=== PATIENT | female | born 1990 ===

== ENCOUNTER 2023-07-17 10:35 | Inpatient (IN) ==
[2023-07-17] MEDS ORDERED: LIDOCAINE 1% LOCAL 20 ML VIAL INFIL PRN (11:22)
--- NOTE | 2023-07-17 11:42 | History & Physical Report ---
Date of Service July 17, 2023 Assessment & Plan Admission and Anticipated Discharge Date Admission Date: July 17, 2023 History of Present Illness Chief Complaint: induction of labor Primary Care Provider: NO PCP 32 F P2002 at 40.2 weeks presents to L&D for IOL for post-dates. Her has been uneventful. GBS is negative. Patient History Social History Smoking Status: Never smoker Second Hand Exposure: No; Do You Dip or Chew Tobacco: No; Tobacco Cessation Education Requested by Patient: No Hx Alcohol Use: No Hx Substance Use: No Preferred Language: Luxembourgish Communication Ability: Effective Production Analyst Required: No Beliefs That Will Affect Care: None marital status: Current Living Situation: Spouse Current Living Situation Comment: , Son, Daughter Other Information That Helps Us Care for You: No Feels Safe at Home: Yes Safety Concerns: Feels Safe At This Time Assistive Devices: None OB History x2 STONEMASON History neg Review of Systems All systems reviewed & are unremarkable except as noted in HPI & below Physical Exam Constitutional: WD/WN, vitals as above Eyes: PERRL, conjunctivae normal, anicteric sclerae Respiratory: normal respiratory effort, lungs clear to auscultation Cardiovascular: RRR, no murmur, no edema Gastrointestinal (Abdomen): Inspection/Auscultation: abdomen normal to inspection Musculoskeletal: Extremities: extremities normal to inspection Skin: no rashes, warm and dry Neurologic: patellar DTR's 2+ bilat, sensation intact Psychiatric: A+Ox3, euthymic affect Genitourinary: no vaginal lesions, no adnexal mass OB Exam Abdomen: + fundal height, + vertex and + estimated weight (7-7.5 lbs.) Manual OB Exam: + cervical dilation 1 cm, + cervical effacement 50% and + station high OB Exam Monitor Tracing: + external FHT monitor used, + external uterine monitor used, + category I and + normal FHT variability Results & Data Vital Signs (Past 12 Hours) Vital Signs Temp Pulse Resp BP 07/17/23 11:20 90 129/85 07/17/23 11:12 36.7 C 16 129/85 Monitoring External Monitor Cat 1
[2023-07-17 11:50] LABS: Hematocrit (blood only) 34.1 % (37.0-47.0); Hemoglobin 11.6 g/dl (12.0-16.0); Mean Corpuscular Hemoglobin 30.5 pg (25.0-34.0); Mean Corpuscular Volume 89.7 fL (80.0-100.0); Mean Platelet Volume 10.4 fL (9.4-12.4); Platelet Count 201 K/uL (130-400); RDW Coefficient of Variation 14.6 % (11.5-14.5); RDW Standard Deviation 47.9 fL (36.4-46.3); White Blood Count 6.85 K/ul (4.8-10.8)
[2023-07-17] MEDS: miSOPROStoL 50 MCG TAB PO SCH (12:39)
[2023-07-17] MEDS: LACTATED RINGER'S 1,000 ML IV PRN (16:56)
[2023-07-17] MEDS ORDERED: SODIUM CHLORIDE 0.9% PF INJ 10 ML VIAL ONE (17:08)
[2023-07-17] MEDS ORDERED: BUPIVACAINE 0.25% PF 30 ML VIAL ONE (17:08)
[2023-07-17] MEDS ORDERED: fentaNYL citrate PF 100 MCG/2 ML VIAL ONE (17:08)
[2023-07-17] MEDS ORDERED: ePHEDrine sulfate 50 MG/ML AMP ONE (17:08)
--- NOTE | 2023-07-17 17:10 | Labor Progress Brief Note ---
Date of Service July 17, 2023 Assessment & Plan Admission and Anticipated Discharge Date Admission Date: July 17, 2023 Physical Exam Genitourinary: Manual OB Exam: + cervical dilation 3 cm, + cervical effacement 60%, + station -2 and + amniotic fluid (AROM with Amni-hook clear fluid) clear OB Exam Monitor Tracing: + external FHT monitor used, + external uterine monitor used, + category I and + normal FHT variability Results & Data Vital Signs (Past 12 Hours) Vital Signs Temp Pulse Resp BP 07/17/23 16:45 37.1 C 07/17/23 15:01 16 07/17/23 15:01 36.8 C 16 07/17/23 14:43 76 128/80 07/17/23 12:39 86 133/75 07/17/23 11:20 90 129/85 07/17/23 11:12 36.7 C 16 129/85
--- NOTE | 2023-07-17 17:34 | Anesthesiology Consultation ---
Date of Service July 17, 2023 Assessment & Plan Chart Review Chart Review: Acceptable Risk for Labor Epidural Consults Requested none History Height/Weight Height: 5 ft 2 in Weight: 75.75 kg Medications Home Medications Medication Instructions Recorded Confirmed Last Taken docusate sodium 50 mg capsule 50 mg PO BID 07/17/23 07/17/23 Unknown ferrous sulfate 325 mg (65 mg 325 mg PO BID 07/17/23 07/17/23 Unknown iron) tablet (Iron (ferrous sulfate)) Active Medications Generic Name Dose Route Start Last Admin Trade Name Dusty PRN Reason Stop Dose Admin Lactated Ringer's 1,000 mls @ 125 mls/hr 07/17/23 11:22 07/17/23 16:56 Lr IV 07/19/23 11:21 999 mls/hr .Q8H PRN Administration L&D Protocol Protocol Misoprostol 50 mcg 07/17/23 11:45 07/17/23 12:39 Misoprostol 50 Mcg Tab PO 08/16/23 11:44 50 mcg BID JOE Administration Past Medical History Medical History (Updated 07/17/23 @ 12:20 by Renetta Fitzgerald RN) Acute hemorrhoid Anemia Social History Smoking Status: Never smoker Do You Dip or Chew Tobacco: No Hx Alcohol Use: No Hx Substance Use: No Physical Exam Vital Signs Last Vital Signs Temp 37.1 C 07/17/23 16:45 Pulse 76 07/17/23 14:43 Resp 16 07/17/23 15:01 BP 128/80 07/17/23 14:43 Testing Laboratory Results 07/17/23 11:34 Blood Type A Positive 07/17/23 11:34 Blood Type Cancelled 07/17/23 11:34 Antibody Screen Cancelled 07/17/23 11:34 Antibody Screen NEGATIVE 07/17/23 11:34
[2023-07-17] MEDS ORDERED: SODIUM CHLORIDE 0.9% PF INJ 10 ML VIAL EPI STA (17:35)
[2023-07-17] MEDS ORDERED: LIDOCAINE 2% MPF LOCAL 5 ML VIAL EPI PRN (17:35)
[2023-07-17] MEDS ORDERED: diphenhydrAMINE 50 MG/ML VIAL IV PRN (17:35)
[2023-07-17] MEDS ORDERED: SODIUM CHLORIDE 0.9% PF INJ 10 ML VIAL EPI PRN (17:35)
[2023-07-17] MEDS ORDERED: NALOXONE HCL 0.4 MG/1 ML VIAL/CARP IV PRN (17:35)
[2023-07-17] MEDS ORDERED: ROPIVACAINE 0.5% PF 5 MG/ML 20 ML VIAL EPI PRN (17:35)
[2023-07-17] MEDS ORDERED: fentaNYL citrate PF 100 MCG/2 ML VIAL EPI PRN (17:35)
[2023-07-17] MEDS ORDERED: LIDOCAINE 2%/EPINEPHRINE 1:200,000 20 ML PF EPI STA (17:35)
[2023-07-17] MEDS ORDERED: fentaNYL citrate PF 100 MCG/2 ML VIAL EPI STA (17:35)
[2023-07-17] MEDS ORDERED: BUPIVACAINE 0.25% PF 30 ML VIAL EPI STA (17:35)
[2023-07-17] MEDS ORDERED: BUPIVACAINE 0.25% PF 30 ML VIAL EPI PRN (17:35)
[2023-07-17] MEDS ORDERED: ePHEDrine sulfate 50 MG/ML AMP IV PRN (17:35)
[2023-07-17] MEDS ORDERED: NALBUPHINE HCL 5 MG in SYRINGE 0 ML IV PRN (17:35)
[2023-07-17] MEDS ORDERED: NALOXONE HCL 1 MG in SODIUM CHLORIDE 0.9% 1,000 ML IV PRN (17:35)
[2023-07-17] MEDS ORDERED: fentANYL 2 MCG/ML BUPIVacaine 0.125%-NSS 100ML BAG EPI PRN (17:35)
[2023-07-17] MEDS: LIDOCAINE 2%/EPINEPHRINE 1:200,000 20 ML PF ONE (17:55)
[2023-07-17] MEDS: fentANYL 2 MCG/ML BUPIVacaine 0.125%-NSS 100ML BAG ONE (17:55)
[2023-07-17] MEDS ORDERED: Patient's ALLERGY Info needs ENTERED SCH (18:00)
[2023-07-17] MEDS ORDERED: OXYTOCIN 30 UNITS/NSS 30 UNITS/500 ML BAG IV PRN (18:04)
[2023-07-17] MEDS: OXYTOCIN 30 UNITS/NSS 30 UNITS/500 ML BAG IV PRN ×2 (20:54→21:43)
--- NOTE | 2023-07-17 21:11 | Delivery Summary ---
Vaginal Delivery Summary Date of Service July 17, 2023 Vaginal Delivery Summary live male NIGHAT over intact perineum with nuchal cord x1 reduced at delivery. Cord blood obtained followed by spontaneous delivery of intact placenta. First degree tear repaired with 3/0 Vicryl suture. EBL 100 ml. Final sponge, needle and instrument count are correct. Mom and baby stable.
[2023-07-17] MEDS ORDERED: DIPHTHER/TETAN/PERTUS Vaccine (Tdap, Adol/Adult) 0.5mL IM ONE (21:18)
[2023-07-17] MEDS ORDERED: HYDROCORTISONE ACETATE 25 MG SUPP PR PRN (21:18)
[2023-07-17] MEDS: BENZOCAINE 20% SPRY 85 APPLN/85 GM CAN EXT PRN (22:25)
[2023-07-17] MEDS: IBUPROFEN 600 MG TAB PO PRN (22:26)
--- NOTE | 2023-07-17 23:19 | Anesthesia Procedure Note ---
Date of Service July 17, 2023 Anesthesia Post Epidural Note Vital Signs Vital Signs: Temp Pulse Resp BP Pulse Ox O2 Del Method 36.7 C 92 H 18 121/80 99 Room Air 07/17/23 19:05 07/17/23 23:05 07/17/23 22:35 07/17/23 23:05 07/17/23 20:56 07/17/23 19:10 Pain Intensity Generalized: Pain Intensity: 4 Notes Mental Status: alert / awake / arousable Nausea / Vomiting: adequately controlled Pain: adequately controlled Airway Patency, RR, SpO2: stable & adequate BP & HR: stable & adequate Hydration State: stable & adequate Neuraxial Anesthesia: was administered and sensory block is resolving Anesthetic Complications: no major complications apparent and Pt Satisfied with anesthetic care Epidural: Removed without complications and With tip intact
[2023-07-18] MEDS: ACETAMINOPHEN 325 MG TAB PO PRN (04:07)
[2023-07-18 07:31] LABS: Hematocrit (blood only) 33.9 % (37.0-47.0); Hemoglobin 11.3 g/dl (12.0-16.0); Mean Corpuscular Hemoglobin 30.5 pg (25.0-34.0); Mean Corpuscular Hgb Conc 33.3 g/dL (32.0-36.0); Mean Corpuscular Volume 91.6 fL (80.0-100.0); Mean Platelet Volume 10.6 fL (9.4-12.4); Platelet Count 176 K/uL (130-400); RDW Coefficient of Variation 14.6 % (11.5-14.5); RDW Standard Deviation 49.5 fL (36.4-46.3); White Blood Count 11.05 K/ul (4.8-10.8)
[2023-07-18] MEDS: PRENATAL VITAMIN 1 TAB PO SCH (07:54)
[2023-07-18] MEDS: DOCUSATE SODIUM 100 MG CAP PO SCH (07:54)
[2023-07-18] MEDS: FERROUS SULFATE 325 MG TAB PO SCH (07:58)
[2023-07-18] MEDS ORDERED: FERROUS SULFATE 325 MG TAB PO SCH (08:00)
[2023-07-18] MEDS ORDERED: NON-FORMULARY MEDICATION (Docusate Sodium 50 mg Capsule) PO SCH (09:00)
[2023-07-18] MEDS: FERROUS SULFATE 325 MG TAB PO ONE (10:29)
--- OUTSIDE RECORDS SUMMARY | 2023-07-18 11:24 | External Medical Summary | Summary of Care ---
Author Name Unknown Organization [facility] Address [address] [place] [address] Phone [phone] Care Team Providers Care Rim Roller Setter Name Role Phone Deborah Peña DO Primary Care Provider [phone] Reason for Visit * Reason Comments Return Visit Encounter Details Date Type Department Care Team ([facility] Contact Info) Description 06/17/2023 3:00 PM EST Office Visit Gynecology/Obstetric s [facility] [address] [facility] [place] [address] Gissel Schwab CR[facility] [address] [facility] [address] Supervision of other normal , antepartum*; History of gestational hypertension; Abnormal findings on screening Allergies No known active allergiesdocumented as of this encounter (statuses as of 06/17/2023) Medications Medication Sig Dispensed Refills Start Date End Date Status Formula 28-0.8-235 MG Oral Capsule Take by mouth. 0 Active Polyethylene Glycol 3350 17 GM Oral Packet Take 1 Packet by mouth in the morning. 0 Active Breast Pump Dispense double electric breast pump. Dx:Z39.1 1 Each 0 04/28/2023 Active Iron 28 MG Oral Tablet Take 1 Tablet by mouth in the morning. 0 06/17/2023 Discontinued( Medication List Clean Up) documented as of this encounter (statuses as of 06/17/2023) Active Problems Problem Noted Date Diagnosed Date Iron deficiency anemia 05/05/2023 Anemia in 04/30/2023 Abnormal findings on screening 023 Overview: BPD, HC, 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 [facility] referral placed. Last Assessment & Plan: I reviewed the ultrasound with her. The overall estimated weight is consistent with the 27th percentile for the gestational age and the anatomy that was visualized appears unremarkable. The head circumference is consistent with the 13th percentile for the gestational age and the biparietal diameter is consistent with the 33rd percentile for the gestational age. The intracranial anatomy that was visualized appears normal. I also reviewed with her my interpretation of the ultrasound from March 02. I told her that the head circumference being at the 13th percentile for the gestational age is appropriate for this gestational age. Therefore, there is no clinical indication for return. Supervision of other normal , antepartu m 01/28/2023 History of gestational hypertension 01/28/2023 Family history of congenital heart defect 2013 Overview: Pt's sister born with "hole in heart," No surgical intervention required; Will get more exact diagnosis for upcoming visits Estimated Date of Delivery Comme nts Yes 07/15/2023 Based on Ultraso und documented as of this encounter (statuses as of 06/17/2023) Resolved Problems Problem Noted Date Diagnosed Date Resolved Date Gestational hypertension 05/08/2018 Overview: IOL tonight at 8 pm , normal first 08/01/201302/16 documented as of this encounter (statuses as of 06/17/2023) Immunizations Name Administration Dates Next Due COVID-19 mRNA, LNP-s, No Pre serve, 2-Dose Series (Ushi) 05/01/2021,09/05/2020,08/15/2020 Seasonal Influenza, PF, 6 M & above, IM , (FluLaval or Fluzone) 04/28/2023 TDAP (age 10 and older)(Boostrix) 04/28/2023 documented as of this encounter Social History Tobacco Use Types Packs/Day Years Used Date Smoking Tobacco: Never Smokeless Tobacco: Never Alcohol Use Standard Drinks/Week Comments No 0 (1 standard drink = 0.6 oz pur e alcohol) Hunger Vital Sign Answer Date Recorded Within the past 12 months, y ou worried that your food would run out before you got the money to buy more. Never true 04/28/20 23 Within the past 12 months, t he food you bought just didn't last and you didn't have money to get more. Never true 04/28/2023 [place] Depression Scale Answer Date Recorded [place] Depression Scale Total 3 04/28/2023 The thought of harming myself has occurred to me . Never 04/28/2023 Estimated Date of Delivery Comme nts Yes 07/15/2023 Based on Ultraso und Sex and Gender Information Value Date Recorded Sex Assigned at Female 04/28/2023 8:21 AM EST Gender Identity Female 04/28/2023 8:21 AM EST Sexual Orientation Straight 04/28/2023 8: 21 AM EST Job Start Date Occupation Industry Not on file Not on file Not on file documented as of this encounter Last Filed Vital Signs Vital Sign Reading Time Taken Comments Blood Pressure 118/70 06/17/2023 3:32 PM EST Pulse - - Temperature - - Respiratory Rate - - Oxygen Saturation - - Inhaled Oxygen Concentration - - Weight 64 kg (141 lb) 06/17/2023 3:32 PM EST Height 157.5 cm (5' 2") 06/17/2023 3:32 PM EST Body Mass Index 25.79 06/17/2023 3:32 PM EST documented in this encounter Progress Notes * Gissel Schwab CRNP - 06/17/2023 3:57 PM EST 36w0d Complaints: none Feeling well overall. Good FM. No contractions, bleeding, or LOF. GBS done. KELLY Hogan documented in this encounter Nursing Notes * Krystal Mayberry LPN - 06/17/2023 3:30 PM EST 36w0d Needs gbs documented in this encounter Plan of Treatment Upcoming Encounters Date Type Department Care Team (Late st Contact Info) Description 06/19/2023 3:00 PM EST Hem/Onc Treatment Hematology/Oncology Treatment, [place] [address] [place], [place] [address] Mikala, Chair 8 Hem Onc Sc[facility] [address] [facility] [address] 06/23/2023 9:45 AM EST Pharmacy Pharmacy, [place] [address] [place] [facility] [address] Clinic, Anemia [address] [place] [address] 06/26/2023 9:15 AM EST Office Visit Gynecology/Obstetrics [facility] [address] [place] [address] Mackenzie Domingo PA-C [address] [place] [address] 07/03/2023 7:45 AM EST Office Visit Gynecology/Obstetrics [facility] [address] [place] [address] Mackenzie Domingo PA-C [address] [place] [address] 07/10/2023 8:30 AM EST Office Visit Gynecology/Obstetrics [facility] [address] [place] [place] [address] Gissel Schwab CRNP [address] [place] [address] 07/17/2023 10:30 AM EST Office Visit Gynecology/Obstetrics [facility] [address] [place] [address] Gissel Schwab CRNP [address] [place] [address] Pending Results Name Type Priority Associated Diagnoses Date /Time GROUP B STREP CULTURE/PCR Lab Routine Supervision of other normal , antepartum 06/17/2023 3:37 PM EST Scheduled Orders Name Type Priority Associated Diagnoses Orde r Schedule GROUP B STREP CULTURE/PCR Lab Routine Supervision of other normal , antepartum Expected: 06/17/2023 (Approximate), Expires: 06/17/2024 Health Maintenance Due Date Last Done Comments Hepatitis B (1 of 3 - 3-dose series) 1989 Depression Screening 2001 HPV/Co-Test 10/26/2019 COVID-19 Vaccine (4 - 2022-2 4 season) 2023 05/01/2021, 09/05/2020, 08/15/2020 Cervical Cancer Screening 03/08/2024 Pap Smear 03/08/2024 03/08/2021, 08/01/2013 DTaP,Tdap,and Td Vaccines (2 - Td or Tdap) 04/28/2033 04/28/2023 Influenza Vaccine (FLU shot) Completed 04/2023, 02/15/2018 GARDASIL-HPV IMMUNIZATION SERIES Aged Out No longer eligible b ased on patient's age to complete this topic MENINGOCOCCAL (MENACTRA/MENVEO) Aged Out No longer eligible b ased on patient's age to complete this topic Pneumococcal Vaccine: Pediatrics (0 to 5 Years) and At-Risk Patients (6 to 64 Years) Aged Out No longer eligible b ased on patient's age to complete this topic documented as of this encounter Medical Devices Not on filedocumented as of this encounter Visit Diagnoses Diagnosis Supervision of other normal , antepartum- Primary History of gestational hypertension Abnormal findings on screening documented in this encounter Care Teams Rim Roller Setter Relationship Specialty Start Date End Date Deborah Peña DO [address] [place] [address] PCP - General Family Medicine 06/12/22 documented as of this encounter
--- OUTSIDE RECORDS SUMMARY | 2023-07-18 11:24 | External Medical Summary ---
Author Name Unknown Address Unknown Organization [id number]:[facility] [place] [address] [facility] [address] Laboratory Report Ordering Provider Test Date Status LYNNE FOY 06/17/2023 15:37:27 Final Observation Date Value Abnormality Reference (Units ) Status Streptococcus agalactiae DNA [Presence] in Specimen by WENDI with probe detection 06/17/2023 15:37:27 Negative Negative Final No Group B Streptococcus det ected by culture-enhanced PCR (amplified probe).
The collection of vaginal/rectal swab specimen combinations (FDA approved specimen type) is optimal for the detection of Group B Streptococcus. Single source collection (vaginal only or rectal only) or alternate specimen sources may lead to false negative results. Performing Location [facility] [place] - [address] [place] [address]
--- OUTSIDE RECORDS SUMMARY | 2023-07-18 11:24 | External Medical Summary | Summary of Care ---
Author Name Unknown Organization [facility] Address [address] [place] [address] Phone [phone] Care Team Providers Care Fine Arts Instructor Name Role Phone Deborah Peña DO Primary Care Provider [phone] Reason for Visit * Reason Comments Return Visit Encounter Details Date Type Department Care Team ([facility] st Contact Info) Description 07/03/2023 4:30 PM EST Office Visit Gynecology/Obstetric s [facility] [address] [place] [address] Mackenzie Domingo PA-C [address] [place] [address] Supervision of other normal , antepartum*; History of gestational hypertension; Abnormal findings on screening Allergies No known active allergiesdocumented as of this encounter (statuses as of 07/03/2023) Medications Medication Sig Dispensed Refills Start Date End Date Status Formula 28-0.8-235 MG Oral Capsule Take by mouth. 0 Active Polyethylene Glycol 3350 17 GM Oral Packet Take 1 Packet by mouth in the morning. 0 Active Breast Pump Dispense double electric breast pump. Dx:Z39.1 1 Each 0 04/28/2023 Active documented as of this encounter (statuses as of 07/03/2023) Active Problems Problem Noted Date Diagnosed Date Iron deficiency anemia 05/05/2023 Anemia in 04/30/2023 Abnormal findings on screening 023 Overview: BPD, HC, 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 MFM referral placed. Last Assessment & Plan: I [...] as of this encounter (statuses as of 07/03/2023) Resolved Problems Problem Noted Date Diagnosed Date Resolved Date Gestational hypertension 05/08/2018 Overview: IOL tonight at 8 pm , normal first 08/01/201302/16 documented as of this encounter (statuses as of 07/03/2023) Immunizations Name Administration Dates Next Due COVID-19 mRNA, LNP-s, No Pre serve, 2-Dose Series (Beats [employer]) 05/01/2021,09/05/2020,08/15/2020 Seasonal Influenza, PF, 6 M & [...] money to get more. Never true 04/28/2023 [place] Depression Scale Answer Date Recorded [place] Depression Scale Total 3 04/28/2023 The thought [...] Sign Reading Time Taken Comments Blood Pressure 112/72 07/03/2023 4:19 PM EST Pulse - - Temperature - - Respiratory Rate - - Oxygen Saturation - - Inhaled Oxygen Concentration - - Weight 64.5 kg (142 lb 3.2 oz) 07/03/2023 4:19 P M EST Height 157.5 cm (5' 2") 07/03/2023 4:19 PM EST Body Mass Index 26.01 07/03/2023 4:19 PM EST documented in this encounter Progress Notes * Mackenzie Domingo PA-C - 07/03/2023 4:33 PM EST 38w2d Denies bleeding, LOF, regular contractions. Pos fm. Has been struggling with hemorrhoids throughout . Has tried tucks pads, not constipated. Reviewed OTC preparation H. Has not tried, but willing to try given discomfort. Declines cervical check. FHT 115 bpm with doppler -- NST done. Pt admits only ate apple around lunch time. ASSESSMENT assessment with Non-stress Test completed on 07/03/2023 at 38.2 weeks gestation for indicationof low FHT by doppler heart baseline: 115 bpm Variability: Moderate Decelerations: absent Accelerations: present Contractions: Present q5-6 minutes, not felt by patient NST start time: 16:28 NST stop time: 16:55 NST strip reviewed, interpreted, and approved by OB provider, Mackenzie Domingo PA-C Strip was also reviewed with Dr. Hilliard, no concerns. NST strip stored in clinic storage file RTC in 1 week Labor precautions Mackenzie Domingo PA-C documented in this encounter Nursing Notes * Elicia Webb RN - 07/03/2023 4:20 PM EST Patient here for CHEO 38w2d + FM documented in this encounter Plan of Treatment Upcoming Encounters Date Type Department Care Team (Late st Contact Info) Description 07/10/2023 8:30 AM EST Office Visit Gynecology/Obstetrics [facility] [address] [place] [address] Gissel Schwab CRNP [address] [place] [address] 07/17/2023 10:30 AM EST Office Visit Gynecology/Obstetrics [facility] [address] [place] [address] Gissel Schwab CRNP [address] [place] [address] Health Maintenance Due Date Last Done Comments Depression Screening 2001 Hepatitis B (1 of 3 - 19+ 3-dose series) 2008 HPV/Co-Test 10/26/2019 COVID-19 Vaccine ( - 2022-2 4 season) 2023 05/01/2021, 09/05/2020, [...] screening documented in this encounter Care Teams Fine Arts Instructor Relationship Specialty Start Date End Date Deborah Peña DO [address] [place] [address] PCP - General Family Medicine 06/12/22 documented as of this encounter
--- OUTSIDE RECORDS SUMMARY | 2023-07-18 11:24 | External Medical Summary | Summary of Care ---
Author Name Unknown Organization [facility] Address [address] [place] [address] Phone [phone] Care Team Providers Care Derrickman Helper Name Role Phone Deborah Peña DO Primary Care Provider [phone] Reason for Visit * Reason Comments IV Therapy Venofer. Encounter Details Date Type Department Care Team (Latest Contact Info) Description 06/19/2023 3:00 PM EST Hem/Onc Treatment Hematology/Oncology Treatment, [place] [address] [place] [address] Mikala Chair 8 Hem Onc [facility] [address] [place] [address] Antepartum anemia*; Iron deficiency anemia, unspecified iron deficiency anemia type Allergies No known active allergiesdocumented as of this encounter (statuses as of 06/19/2023) Medications Medication Sig Dispensed Refills Start Date End Date Status Formula 28-0.8-235 MG Oral Capsule Take by mouth. 0 Active Polyethylene Glycol 3350 17 GM Oral Packet Take 1 Packet by mouth in the morning. 0 Active Breast Pump Dispense double electric breast pump. Dx:Z39.1 1 Each 0 04/28/2023 Active documented as of this encounter (statuses as of 06/19/2023) Active Problems Problem Noted Date Diagnosed Date Iron deficiency anemia 05/05/2023 Anemia in 04/30/2023 Abnormal findings on screening 023 Overview: BPD, HC, 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 M referral placed. Last Assessment & Plan: I [...] as of this encounter (statuses as of 06/19/2023) Resolved Problems Problem Noted Date Diagnosed Date Resolved Date Gestational hypertension 05/08/2018 Overview: IOL tonight at 8 pm , normal first 08/01/201302/16 documented as of this encounter (statuses as of 06/19/2023) Immunizations Name Administration Dates Next Due COVID-19 mRNA, LNP-s, No Pre serve, 2-Dose Series ([employer]) 05/01/2021,09/05/2020,08/15/2020 Seasonal Influenza, PF, 6 M & [...] money to get more. Never true 04/28/2023 [place] Depression Scale Answer Date Recorded [place] Depression Scale Total 3 04/28/2023 The thought [...] Sign Reading Time Taken Comments Blood Pressure 123/82 06/19/2023 3:00 PM EST Pulse 88 06/19/2023 3:00 PM EST Temperature 36.9 C (98.4 F) 06/19/2023 3:00 PM ES T Respiratory Rate 18 06/19/2023 3:00 PM EST Oxygen Saturation 98% 06/19/2023 3:00 PM EST Inhaled Oxygen Concentration - - Weight - - Height - - Body Mass Index - - documented in this encounter Nursing Notes * Mita Hernandez RN - 06/19/2023 4:32 PM EST Goals: Patient will remain free from injury. Possible barriers to meeting goals: ambulating with IV pole Stability of the patient: Moderately stable - low risk of patient condition declining or worsening Summary regarding today's goals: Met: pt remained free of harm today Patient tolerated treatment well without any acute issues or problems. Patient left facility in stable condition and denied any further needs. * Vianey Perry RN - 06/19/2023 3:08 PM EST Chair 7. Patient arrived for venofer treatment with no complaints. Safety and Risk for Injury Patient will remain free from injury. Ensure appropriate safety devices are available. Provide and maintain safe environment. documented in this encounter Plan of Treatment Upcoming Encounters Date Type Department Care Team (Late st Contact Info) Description 06/23/2023 9:45 AM EST Pharmacy Pharmacy, [place] [address] [place] [address] Clinic, [place] [address] [place] [address] 06/26/2023 9:15 AM EST Office Visit Gynecology/Obstetrics [facility] [address] [place] [address] Mackenzie Domingo PA-C [address] [place] [address] 07/03/2023 7:45 AM EST Office Visit Gynecology/Obstetrics [facility] [address] [place] [address] Mackenzie Domingo PA-C [address] [place] [address] 07/10/2023 8:30 AM EST Office Visit Gynecology/Obstetrics [facility] [address] [place] [address] Gissel Schwab CRNP [address] [place] [address] 07/17/2023 10:30 AM EST Office Visit Gynecology/Obstetrics [facility] [address] [place] [address] Gissel Schwab CRNP [address] [place] [address] Health Maintenance Due Date Last Done Comments [...] as of this encounter Visit Diagnoses Diagnosis Antepartum anemia- Primary Anemia, antepartum Iron deficiency anemia, unspecified iron deficiency anemia type documented in this encounter Administered Medications Active Administered Medications - up to 3 most recent administrations Medication Order MAR Action Action Date Dose Rate Site diphenhydrAMINE (Benadryl) inj 50 mg 50 mg, IV Push, ONCE PRN Other, Hypersensitivity Reaction, Starting on Thu06/19/23 at 1501, Until 06/20/23 at 1500, For 24 hours EPINEPHrine 1 MG/ML inj 0.3 mg 0.3 mg, Intramuscular, ONCE PRN Other, Hypersensitivity Reaction or Anaphylaxis, Starting on Thu06/19/23 at 1501, Until 06/20/23 at 1500, For 24 hours hEParin 100 UNIT/ML Lock Flush inj 500 Units 500 Units (5 mL), IV Lock, PRN Other, IV Flush, Starting on Thu06/19/23 at 1501, Until 06/20/23 at 1500, For 24 hours, Do not flush if lock, PICC, or central line not in place; IV infusing or unable to flush. Hydrocortisone Sod Suc (PF) (Solu-Cortef) inj 100 mg 100 mg, IV Push, ONCE PRN Other, Hypersensitivity Reaction, Starting on Thu06/19/23 at 1501, Until 06/20/23 at 1500, For 24 hours NSS infusion 500 mL, Intravenous, at 50 mL/hr, CONTINUOUS, Starting on Thu06/19/23 at 1615, Until 06/20/23 at 0214 Start Infusion 06/19/2023 3:05 PM EST 500 mL 50 mL/hr oxygen GAS Inhalation, OXYGEN, First dose on Thu06/19/23 at 1600, Until Discontinued, Device/Managed by: Low Flow Device, Goal SPO2 (%): 91-95, Starting Device: Nasal Cannula, Initial Flow Rate (LPM): 2, Lowest Support: Nasal Cannula: Flow 0-6 LPM. Titrate up/down by 1 LPM., Higher Support: Non-Rebreather (NRB) Mask: Minimum of 10 LPM. Titrate to maintain bag inflation., Titration Interval: Q2 minutes and as needed., Notify Provider: For sudden DECREASE in resting SPO2 to less than 85% and when escalating delivery device., Wean patient off Oxygen when the oxygen saturation is greater than or equal to 93% sodium chloride 0.9 % flush central line 10 mL 10 mL, IV Push, PRN Other, IV Flush, Starting on Thu06/19/23 at 1501, Until 06/20/23 at 1500, For 24 hours, Do not flush if lock, PICC, or central line not in place; IV infusing or unable to flush. Inactive Administered Medications - up to 3 most recent administrations Medication Order MAR Action Action Date Dose Rate Site Iron Sucrose (Venofer) 300 mg in NSS 250 mL ivpb 300 mg, IV Piggyback, ONCE, 1 dose, On Thu06/19/23 at 1645, Administer over 90 Minutes Start Infusion 06/19/2023 3:05 PM EST 300 mg 166.67 mL/hr documented in this encounter Care Teams Derrickman Helper Relationship Specialty Start Date End Date Deborah Peña DO [address] [place] [address] PCP - General Family Medicine 06/12/22 documented as of this encounter
--- OUTSIDE RECORDS SUMMARY | 2023-07-18 11:24 | External Medical Summary | Summary of Care ---
Author Name Unknown Organization [facility] Address [address] [place] [address] Phone [phone] Care Team Providers Care Tower Director Name Role Phone Deborah Peña DO Primary Care Provider [phone] Reason for Visit * Reason Comments Return Visit Encounter Details Date Type Department Care Team ([facility] Contact Info) Description 06/26/2023 9:15 AM EST Office Visit Gynecology/Obstetric s [facility] [address] [place] [address] Mackenzie Domingo PA-C [address] [place] [address] Supervision of other normal , antepartum*; History of gestational hypertension; Anemia during in third trimester; Abnormal findings on screening Allergies No known active allergiesdocumented as of this encounter (statuses as of 06/26/2023) Medications Medication Sig Dispensed Refills Start Date End Date Status Formula 28-0.8-235 MG Oral Capsule Take by mouth. 0 Active Polyethylene Glycol 3350 17 GM Oral Packet Take 1 Packet by mouth in the morning. 0 Active Breast Pump Dispense double electric breast pump. Dx:Z39.1 1 Each 0 04/28/2023 Active documented as of this encounter (statuses as of 06/26/2023) Active Problems Problem Noted Date Diagnosed Date [...] as of this encounter (statuses as of 06/26/2023) Resolved Problems Problem Noted Date Diagnosed Date Resolved Date Gestational hypertension 05/08/2018 Overview: IOL tonight at 8 pm , normal first 08/01/201302/16 documented as of this encounter (statuses as of 06/26/2023) Immunizations Name Administration Dates Next Due COVID-19 mRNA, LNP-s, No Pre serve, 2-Dose Series ([employer]) 05/01/2021,09/05/2020,08/15/2020 Seasonal Influenza, PF, 6 M & [...] money to get more. Never true 04/28/2023 [place] Depression Scale Answer Date Recorded [place] Depression Scale Total 3 04/28/2023 The thought [...] Sign Reading Time Taken Comments Blood Pressure 114/74 06/26/2023 9:09 AM EST Pulse - - Temperature - - Respiratory Rate - - Oxygen Saturation - - Inhaled Oxygen Concentration - - Weight 63 kg (139 lb) 06/26/2023 9:09 AM EST Height 157.5 cm (5' 2") 06/26/2023 9:09 AM EST Body Mass Index 25.42 06/26/2023 9:09 AM EST documented in this encounter Progress Notes * Mackenzie Domingo PA-C - 06/26/2023 9:15 AM EST 37w1d Doing well. Reports increased pelvic pressure and pain with baby's movement at night. Resolves withchanges in position. Agreeable to schedule postdate IOL today. Prefers to not go too much beyond due date. Scheduled for IOL and given instructions prior to leaving. Denies LOF, VB. Good FM. Reports BH contractions. has already had vasectomy. Uncertain lie today -- ultrasound in follow up baby is confirmed vertex. RTC in 1 week Mackenzie Domingo PA-C documented in this encounter Nursing Notes * Temi Kolb LPN - 06/26/2023 9:11 AM EST 37w2d Baby very active at night. Finished iv iron last week, will do repeat labs with delivery. Declines scheduling IOL. documented in this encounter Plan of Treatment Upcoming Encounters Date Type Department Care Team (Late st Contact Info) Description 07/03/2023 7:45 AM EST Office Visit Gynecology/Obstetrics [facility] [address] [place] [address] Mackenzie Domingo PA-C [address] [place] [address] 07/10/2023 8:30 AM EST Office Visit Gynecology/Obstetrics [facility] [address] [place] [address] Gissel Schwab CRNP [address] [place] [address] 07/17/2023 10:30 AM EST Office Visit Gynecology/Obstetrics [facility] [address] [place] [address] Gissel Schwab CRNP [address] [place] [address] Pending Results Name Type Priority Associated Diagnoses Date /Time US PREG LIMITED 1 OR MORE FETUSES Medical Imaging Routine Supervision of other normal , antepartum 06/26/2023 10:07 AM EST Scheduled Orders Name Type Priority Associated Diagnoses Orde r Schedule US PREG LIMITED 1 OR MORE FETUSES Medical Imaging Routine Supervision of other normal , antepartum Expected: 06/26/2023, Expires: 07/24/2024 Health Maintenance Due Date Last Done Comments [...] , antepartum- Primary History of gestational hypertension Anemia during in third trimester Abnormal findings on screening documented in this encounter Care Teams Tower Director Relationship Specialty Start Date End Date Deborah Peña DO [address] [place] [address] PCP - General Family Medicine 06/12/22 documented as of this encounter
--- OUTSIDE RECORDS SUMMARY | 2023-07-18 11:24 | External Medical Summary | Summary of Care ---
Author Name Unknown Organization [facility] Address [address] [place] [address] Phone [phone] Care Team Providers Care Graduating Machine Operator Name Role Phone Deborah Peña DO Primary Care Provider Reason for Visit * Reason Comments Return Visit Encounter Details Date Type Department Care Team ([facility] st Contact Info) Description 07/10/2023 8:30 AM EST Office Visit Gynecology/Obstetric s [facility] [address] [facility] [place] [address] Gissel Schwab CRNP [address] [facility] [address] Supervision of other normal , antepartum*; History of gestational hypertension; Abnormal findings on screening Allergies No known active allergiesdocumented as of this encounter (statuses as of 07/10/2023) Medications Medication Sig Dispensed Refills Start Date End Date Status Formula 28-0.8-235 MG Oral Capsule Take by mouth. 0 Active Polyethylene Glycol 3350 17 GM Oral Packet Take 1 Packet by mouth in the morning. 0 Active Breast Pump Dispense double electric breast pump. Dx:Z39.1 1 Each 0 04/28/2023 Active documented as of this encounter (statuses as of 07/10/2023) Active Problems Problem Noted Date Diagnosed Date [...] as of this encounter (statuses as of 07/10/2023) Resolved Problems Problem Noted Date Diagnosed Date Resolved Date Gestational hypertension 05/08/2018 Overview: IOL tonight at 8 pm , normal first 08/01/201302/16 documented as of this encounter (statuses as of 07/10/2023) Immunizations Name Administration Dates Next Due COVID-19 mRNA, LNP-s, No Pre serve, 2-Dose Series ([employer]) 05/01/2021,09/05/2020,08/15/2020 Seasonal Influenza, PF, 6 M & [...] money to get more. Never true 04/28/2023 [place] Depression Scale Answer Date Recorded [place] Depression Scale Total 3 04/28/2023 The thought [...] Sign Reading Time Taken Comments Blood Pressure 118/84 07/10/2023 8:23 AM EST Pulse - - Temperature - - Respiratory Rate - - Oxygen Saturation - - Inhaled Oxygen Concentration - - Weight 63.9 kg (140 lb 12.8 oz) 07/10/2023 8:23 AM EST Height 157.5 cm (5' 2") 07/10/2023 8:23 AM EST Body Mass Index 25.75 07/10/2023 8:23 AM EST documented in this encounter Progress Notes * Gissel Schwab CRNP - 07/10/2023 8:50 AM EST 39w2d No concerns. Hemorrhoids are somewhat better than last week. Baby is active. Denies contractions, bleeding, LOF. IOL 07/16. KELLY Hogan documented in this encounter Nursing Notes * Temi Kolb LPN - 07/10/2023 8:28 AM EST 39w1d Denies concerns. IOL 07/16/22. documented in this encounter Plan of Treatment Health Maintenance Due Date Last Done Comments Depression Screening 2001 Hepatitis B (1 of 3 - 19+ 3-dose series) 2008 HPV/Co-Test 10/26/2019 COVID-19 Vaccine (4 - 2022-2 [...] screening documented in this encounter Care Teams Graduating Machine Operator Relationship Specialty Start Date End Date Deborah Peña DO [address] [place] [address] PCP - General Family Medicine 06/12/22 documented as of this encounter
--- OUTSIDE RECORDS SUMMARY | 2023-07-18 11:24 | External Medical Summary | Summary of Care ---
Author Name Unknown Organization [facility] Address [address] [place] [address] Phone [phone] Care Team Providers Care Facilities Officer Name Role Phone Deborah Peña DO Primary Care Provider [phone] Reason for Visit * Reason Onset Date Comments Anemia Follow-Up 06/23/2023 Encounter Details Date Type Department Care Team (Late st Contact Info) Description 06/23/2023 9:45 AM [facility] Pharm[facility] Pharmacy, [place] [address] [place], [place] [id number] Clinic, [place] [address] [place] [address] Iron deficiency anemia, unspecified iron deficiency anemia type* Allergies No known active allergiesdocumented as of this encounter (statuses as of 06/23/2023) Medications Medication Sig Dispensed Refills Start Date End Date Status Formula 28-0.8-235 MG Oral Capsule Take by mouth. 0 Active Polyethylene Glycol 3350 17 GM Oral Packet Take 1 Packet by mouth in the morning. 0 Active Breast Pump Dispense double electric breast pump. Dx:Z39.1 1 Each 0 04/28/2023 Active documented as of this encounter (statuses as of 06/23/2023) Active Problems Problem Noted Date Diagnosed Date [...] as of this encounter (statuses as of 06/23/2023) Resolved Problems Problem Noted Date Diagnosed Date Resolved Date Gestational hypertension 05/08/2018 Overview: IOL tonight at 8 pm , normal first 08/01/201302/16 documented as of this encounter (statuses as of 06/23/2023) Immunizations Name Administration Dates Next Due COVID-19 mRNA, LNP-s, No Pre serve, 2-Dose Series ([employer]) 05/01/2021,09/05/2020,08/15/2020 Seasonal Influenza, PF, 6 M & [...] money to get more. Never true 04/28/2023 [place] Depression Scale Answer Date Recorded [place] Depression Scale Total 3 04/28/2023 The thought [...] on file documented as of this encounter Progress Notes * Lucy Joyner RPh - 06/23/2023 12:52 PM EST Patient Phone Numbers [employer] [phone] Call to patient. Patient received Venofer 300 mg x 3 on 05/29, 06/12 and 06/19. Patient reports tolerating Venofer infusions went well. GA: 36w6d Estimated Date of Delivery: 07/15/23 Given proximity to patient's due date, will not repeat any additional lab work. Anemia Clinic will sign off. Thank you for allowing us to participate in the care of this patient. Thanks, Lucy Joyner [facility] Clinical Pharmacist [facility]emia [facility] (P: [phone]) 06/23/2023 12:52 PM documented in this encounter Plan of Treatment Upcoming Encounters Date Type Department Care Team (Late st Contact Info) Description 06/26/2023 9:15 AM EST [facility] [address] [place] [address] Mackenzie Domingo PA-C [address] [place] [address] 07/03/2023 7:45 AM EST Office Visit Gynecology/Obstetrics [facility] [address] [place] [address] Mackenzie Domingo PA-C [address] [place] [address] 07/10/2023 8:30 AM EST Office Visit Gynecology/Obstetrics [facility] [address] [place] [address] Gissel Schwab CRNP [address] [place] [address] 07/17/2023 10:30 AM EST Office Visit Gynecology/Obstetrics [facility] [address] [place] [address] Gissel Schwab CRNP [address] [place] [address] Health Maintenance Due Date Last Done Comments Hepatitis B (1 of 3 - 3-dose series) 1989 Depression Screening 2001 HPV/Co-Test 10/26/2019 COVID-19 Vaccine ( - 2022-2 [...] as of this encounter Visit Diagnoses Diagnosis Iron deficiency anemia, unspecified iron deficiency anemia type- Primary documented in this encounter Care Teams Facilities Officer Relationship Specialty Start Date End Date Deborah Peña DO [address] [place] [address] PCP - General Family Medicine 06/12/22 documented as of this encounter
--- OUTSIDE RECORDS SUMMARY | 2023-07-18 11:24 | External Medical Summary | Summary of Care ---
Author Name Unknown Organization [facility] Address [address] [place] [address] Phone [phone] Care Team Providers Care Small Lot Operator Name Role Phone Deborah Peña DO Primary Care Provider [phone] Reason for Visit * Reason Comments IV Therapy Venofer Encounter Details Date Type Department Care Team (Latest Contact Info) Description 06/12/2023 3:00 PM EST [facility] [address] [place] [address] Mikala, Chair 9 Hem Onc [facility] [address] [place] [address] Antepartum anemia*; Iron deficiency anemia, unspecified iron deficiency anemia type Allergies No known active allergiesdocumented as of this encounter (statuses as of 07/09/2023) Medications Medication Sig Dispensed Refills Start Date [...] as of this encounter (statuses as of 07/09/2023) Active Problems Problem Noted Date Diagnosed Date [...] as of this encounter (statuses as of 07/09/2023) Resolved Problems Problem Noted Date Diagnosed Date Resolved Date Gestational hypertension 05/08/2018 Overview: IOL tonight at 8 pm , normal first 08/01/201302/16 documented as of this encounter (statuses as of 07/09/2023) Immunizations Name Administration Dates Next Due COVID-19 mRNA, LNP-s, No Pre serve, 2-Dose Series ([employer]) 05/01/2021,09/05/2020,08/15/2020 Seasonal Influenza, PF, 6 M & [...] money to get more. Never true 04/28/2023 [place] Depression Scale Answer Date Recorded [place] Depression Scale Total 3 04/28/2023 The thought [...] Sign Reading Time Taken Comments Blood Pressure 116/74 06/12/2023 3:36 PM EST Pulse 106 06/12/2023 3:36 PM EST Temperature 36.8 C (98.2 F) 06/12/2023 3:36 PM ES T Respiratory Rate 16 06/12/2023 3:36 PM EST Oxygen Saturation 98% 06/12/2023 3:36 PM EST Inhaled Oxygen Concentration - - Weight - - Height - - Body Mass Index - - documented in this encounter Nursing Notes * Scooter Crocker, RN - 06/12/2023 3:37 PM EST Chair 1. IV inserted without issue. Pt denies any reportable symptoms. Fluids infusing per order. Safety and Risk for Injury Patient will remain free from injury. Ensure appropriate safety devices are available. Provide and maintain safe environment. documented in this encounter Plan of Treatment Upcoming Encounters Date Type Department Care Team (Late st Contact Info) Description 07/10/2023 8:30 AM EST Office Visit [facility]necology[facility] [address] [place] [address] Gissel Schwab CRNP [address] [place] [address] 07/17/2023 10:30 AM EST Office Visit Gynecology/Obstetrics [facility] [address] [place] [address] Gissel Schwab CRNP [address] [place] [address] Health Maintenance Due Date Last Done Comments Depression Screening 2001 Hepatitis B (1 of 3 - 19+ 3-dose series) 2008 HPV/Co-Test 10/26/2019 COVID-19 Vaccine (2022-2 4 season) 2023 05/01/2021, 09/05/2020, 08/15/2020 Cervical [...] type documented in this encounter Administered Medications Inactive Administered Medications - up to 3 most recent administrations Medication Order MAR Action Action Date Dose Rate Site Iron Sucrose (Venofer) 300 mg in NSS 250 mL ivpb 300 mg, IV Piggyback, ONCE, 1 dose, On Thu06/12/23 at 1700, Administer over 90 Minutes Start Infusion 06/12/2023 3:18 PM EST 300 mg 166.67 mL/hr NSS infusion 500 mL, Intravenous, at 50 mL/hr, CONTINUOUS, Starting on Thu06/12/23 at 1630, Until Thu06/12/23 at 2052 Start Infusion 06/12/2023 3:18 PM EST 500 mL 50 mL/hr documented in this encounter Care Teams Small Lot Operator Relationship Specialty Start Date End Date Deborah Peña DO [address] [place] [address] PCP - General Family Medicine 06/12/22 documented as of this encounter
--- OUTSIDE RECORDS SUMMARY | 2023-07-18 11:24 | External Medical Summary | Summary of Care ---
Author Name Unknown Organization [facility] Address [address] [place] [address] Phone [phone] Care Team Providers Care Electrical Prospector Name Role Phone Deborah Peña DO Primary Care Provider [phone] Reason for Visit * Reason Comments IV Therapy Venofer Encounter Details Date Type Department Care Team (Latest Contact Info) Description 06/12/2023 3:00 PM EST [facility] [address] [place] [address] Mikala, Chair 9 Hem Onc [facility] [address] [place] [address] Antepartum anemia*; Iron deficiency anemia, unspecified iron deficiency anemia type Allergies No known active allergiesdocumented as of this encounter (statuses as of 07/08/2023) Medications Medication Sig Dispensed Refills Start Date [...] as of this encounter (statuses as of 07/08/2023) Active Problems Problem Noted Date Diagnosed Date [...] as of this encounter (statuses as of 07/08/2023) Resolved Problems Problem Noted Date Diagnosed Date Resolved Date Gestational hypertension 05/08/2018 Overview: IOL tonight at 8 pm , normal first 08/01/201302/16 documented as of this encounter (statuses as of 07/08/2023) Immunizations Name Administration Dates Next Due COVID-19 mRNA, LNP-s, No Pre serve, 2-Dose Series ([employer]) 05/01/2021,09/05/2020,08/15/2020 Seasonal Influenza, PF, 6 M & [...] money to get more. Never true 04/28/2023 [place] Depression Scale Answer Date Recorded [place] Depression Scale Total 3 04/28/2023 The thought [...] 07/10/2023 8:30 AM EST [facility] [address] [place] [place] [address] Gissel Schwab CRNP [address] [place] [address] 07/17/2023 10:30 AM EST Office Visit Gynecology/Obstetrics [facility] [address] [place] [address] Gissel Schwab CRNP [address] [place] [address] Health Maintenance Due Date Last Done Comments [...] mL/hr documented in this encounter Care Teams Electrical Prospector Relationship Specialty Start Date End Date Deborah Peña DO [address] [place] [address] PCP - General Family Medicine 06/12/22 documented as of this encounter
--- OUTSIDE RECORDS SUMMARY | 2023-07-18 11:24 | External Medical Summary | Summary of Care ---
Author Name Unknown Organization [facility] Address [address] [place] [address] Phone [phone] Care Team Providers Care Bulk Clerk Name Role Phone Deborah Peña DO Primary Care Provider [phone] Reason for Visit * Reason Comments IV Therapy Venofer 05/20 Encounter Details Date Type Department Care Team (Latest Contact Info) Description 05/29/2023 1:15 PM EST Hem/Onc Treatment Hematology/Oncology Treatment[address] [address] Mikala, Chair 11 Hem Onc [address] [address] Antepartum anemia*; Iron deficiency anemia, unspecified iron deficiency anemia type Allergies No known active allergiesdocumented as of this encounter (statuses as of 07/11/2023) Medications Medication Sig Dispensed Refills Start Date [...] as of this encounter (statuses as of 07/11/2023) Active Problems Problem Noted Date Diagnosed Date Iron deficiency anemia 05/05/2023 Anemia in 04/30/2023 Abnormal findings on screening 023 Overview: BPD, HC, 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 referral placed. Last Assessment & Plan: I [...] as of this encounter (statuses as of 07/11/2023) Resolved Problems Problem Noted Date Diagnosed Date Resolved Date Gestational hypertension 05/08/2018 Overview: IOL tonight at 8 pm , normal first 08/01/201302/16 documented as of this encounter (statuses as of 07/11/2023) Immunizations Name Administration Dates Next Due COVID-19 mRNA, LNP-s, No Pre serve, 2-Dose Series ([employer]) 05/01/2021,09/05/2020,08/15/2020 Seasonal Influenza, PF, 6 M & [...] money to get more. Never true 04/28/2023 [place] Depression Scale Answer Date Recorded [place] Depression Scale Total 3 04/28/2023 The thought [...] Sign Reading Time Taken Comments Blood Pressure 115/73 05/29/2023 1:15 PM EST Pulse 81 05/29/2023 1:15 PM EST Temperature 36.9 C (98.5 F) 05/29/2023 1:15 PM ES T Respiratory Rate 16 05/29/2023 1:15 PM EST Oxygen Saturation 98% 05/29/2023 1:15 PM EST Inhaled Oxygen Concentration - - Weight - - Height - - Body Mass Index - - documented in this encounter Nursing Notes * Mita Hernandez RN - 05/29/2023 4:03 PM EST Chair 7. IV inserted. Patient here for Venofer 05/20, educated about infusions and possible side effects, along with use ofcall turner. Safety and Risk for Injury Patient will remain free from injury. Ensure appropriate safety devices are available. Provide and maintain safe environment. Goals: Patient will remain free from injury. Possible barriers to meeting goals: ambulating with IV pole Stability of the patient: Moderately stable - low risk of patient condition declining or worsening Summary regarding today's goals: Met: pt remained free of harm today Patient tolerated treatment well without any acute issues or problems. Patient left facility in stable condition and denied any further needs. documented in this encounter Plan of Treatment [...] mg, IV Piggyback, ONCE, 1 dose, On Thu05/29/23 at 1530, Administer over 90 Minutes Start Infusion 05/29/2023 1:54 PM EST 300 mg 166.67 mL/hr NSS infusion 500 mL, Intravenous, at 50 mL/hr, CONTINUOUS, Starting on Thu05/29/23 at 1500, Until Thu05/29/23 at 2008 Start Infusion 05/29/2023 1:54 PM EST 500 mL 50 mL/hr documented in this encounter Care Teams Bulk Clerk Relationship Specialty Start Date End Date Deborah Peña DO [address] [address] PCP - General Family Medicine 06/12/22 documented as of this encounter
--- OUTSIDE RECORDS SUMMARY | 2023-07-18 11:24 | External Medical Summary | Summary of Care ---
Author Name Unknown Organization [facility] Address [address] [place] [address] Phone [phone] Care Team Providers Care Heavy Duty Mechanic Name Role Phone Deborah Peña DO Primary Care Provider [phone] Reason for Visit * Reason Comments Return Visit Encounter Details Date Type Department Care Team ([facility] Contact Info) Description 06/26/2023 9:15 AM EST Office Visit Gynecology/Obstetric s [facility] [address] [place] [address] Mackenzie Domingo PA-C [address] [place] [address] Supervision of other normal , antepartum*; History [...] mRNA, LNP-s, No Pre serve, 2-Dose Series ([employer]) 05/01/2021,09/05/2020,08/15/2020 Seasonal Influenza, PF, 6 M & [...] money to get more. Never true 04/28/2023 [place] Depression Scale Answer Date Recorded [place] Depression Scale Total 3 04/28/2023 The thought [...] Team (Late st Contact Info) Description 06/26/2023 10:00 AM EST [facility] [address] [place] [address] Supervision of other normal , antepartum 07/03/2023 7:45 AM EST Office Visit Gynecology/Obstetric s [facility] [address] [place] [address] Mackenzie Domingo PA-C [address] [place] [address] 07/10/2023 8:30 AM EST Office Visit Gynecology/Obstetric s [facility] [address] [place] [address] Gissel Schwab CRNP [address] [place] [address] 07/17/2023 10:30 AM EST Office Visit Gynecology/Obstetric s [facility] [address] [place] [address] Gissel Schwab CRNP [address] [place] [address] Pending Results Name Type Priority Associated Diagnoses Date /Time US PREG LIMITED 1 OR MORE FETUSES Medical Imaging Routine Supervision of other normal , antepartum 06/26/2023 9:48 AM EST Scheduled Orders Name Type Priority [...] in third trimester Abnormal findings on screening Supervision of other normal , antepartum documented in this encounter Care Teams Heavy Duty Mechanic Relationship Specialty Start Date End Date Deborah Pñea DO [address] [place] [address] PCP - General Family Medicine 06/12/22 documented as of this encounter
--- OUTSIDE RECORDS SUMMARY | 2023-07-18 11:25 | External Medical Summary | Summary of Care ---
Author Name Unknown Organization [facility] Address [address] [place] [address] Phone [phone] Care Team Providers Care Food Safety Field Specialist Name Role Phone Deborah Peña DO Primary Care Provider [phone] Reason for Visit * Reason Comments IV Therapy Venofer 05/20 Encounter Details Date Type Department Care Team (Latest Contact Info) Description 05/29/2023 1:15 PM EST Hem/Onc Treatment Hematology/Oncology Treatment[address] [address] Mikala, Chair 11 Hem Onc [address] [address] Antepartum anemia*; Iron deficiency anemia, unspecified iron deficiency anemia type Allergies No known active allergiesdocumented as of this encounter (statuses as of 05/29/2023) Medications Medication Sig Dispensed Refills Start Date [...] Tablet by mouth in the morning. 0 Active documented as of this encounter (statuses as of 05/29/2023) Active Problems Problem Noted Date Diagnosed Date [...] as of this encounter (statuses as of 05/29/2023) Resolved Problems Problem Noted Date Diagnosed Date Resolved Date Gestational hypertension 05/08/2018 Overview: IOL tonight at 8 pm , normal first 08/01/201302/16 documented as of this encounter (statuses as of 05/29/2023) Immunizations Name Administration Dates Next Due COVID-19 mRNA, LNP-s, No Pre serve, 2-Dose Series ([employer]) 05/01/2021,09/05/2020,08/15/2020 Seasonal Influenza, PF, 6 M & [...] money to get more. Never true 04/28/2023 [place] Depression Scale Answer Date Recorded [place] Depression Scale Total 3 04/28/2023 The thought [...] Care Team (Late st Contact Info) Description 06/03/2023 10:00 AM EST Pharmacy Pharmacy, [place] [address] [place] [address] Clinic, Anemia [address] [place] [address] 06/05/2023 3:00 PM EST Hem/Onc Treatment Hematology/Oncology Treatment, [place] [address] [facility], [place] [address] Mikala, Chair 11 Hem Onc Sc[place] [address] [facility] [place] [address] 06/11/2023 9:15 AM EST Office Visit Gynecology/Obstetrics [facility] [address] [place] [address] Backer, KELLY Roberts [address] [place] [address] 06/12/2023 3:00 PM EST Hem/Onc Treatment Hematology/Oncology Treatment, [place] [address] [facility], [place] [address] Mikala, Chair 9 Hem Onc Scenery [address] [facility] [place], [place] [address] 06/26/2023 9:15 AM EST Office Visit Gynecology/Obstetrics [facility] [address] [place] [address] Mackenzie Domingo PA-C [address] [place] [address] 07/03/2023 7:45 AM EST Office Visit Gynecology/Obstetrics [facility] [address] [place] [address] Mackenzie Domingo PA-C [address] [place] [address] 07/10/2023 8:30 AM EST Office Visit Gynecology/Obstetrics [facility] [address] [place] [place] [address] Gissel Schwab CRNP [address] [place] [address] 07/17/2023 10:30 AM EST Office Visit Gynecology/Obstetrics [facility] [address] [place] [place] [address] Gissel Schwab CRNP [address] [place] [address] Health Maintenance Due Date Last Done Comments [...] ONCE PRN Other, Hypersensitivity Reaction, Starting on Thu05/29/23 at 1354, Until 05/30/23 at 1353, For 24 hours EPINEPHrine 1 MG/ML inj 0.3 mg 0.3 mg, Intramuscular, ONCE PRN Other, Hypersensitivity Reaction or Anaphylaxis, Starting on Thu05/29/23 at 1354, Until 05/30/23 at 1353, For 24 hours hEParin 100 UNIT/ML Lock Flush inj 500 Units 500 Units (5 mL), IV Lock, PRN Other, IV Flush, Starting on Thu05/29/23 at 1354, Until 05/30/23 at 1353, For 24 hours, Do not flush if lock, PICC, or central line not in place; IV infusing or unable to flush. Hydrocortisone Sod Suc (PF) (Solu-Cortef) inj 100 mg 100 mg, IV Push, ONCE PRN Other, Hypersensitivity Reaction, Starting on Thu05/29/23 at 1354, Until 05/30/23 at 1353, For 24 hours NSS infusion 500 mL, Intravenous, at 50 mL/hr, CONTINUOUS, Starting on Thu05/29/23 at 1500, Until 05/30/23 at 0059 Start Infusion 05/29/2023 1:54 PM EST 500 mL 50 mL/hr oxygen GAS Inhalation, OXYGEN, First dose on Thu05/29/23 at 1600, Until Discontinued, Device/Managed by: Low [...] Push, PRN Other, IV Flush, Starting on Thu05/29/23 at 1354, Until 05/30/23 at 1353, For 24 hours, Do not flush if [...] 1:54 PM EST 300 mg 166.67 mL/hr documented in this encounter Care Teams Food Safety Field Specialist Relationship Specialty Start Date End Date Deborah Peña DO [address] [address] PCP - General Family Medicine 06/12/22 documented as of this encounter
--- OUTSIDE RECORDS SUMMARY | 2023-07-18 11:25 | External Medical Summary | Summary of Care ---
Author Name Unknown Organization [facility] Address [address] [place] [address] Phone [phone] Care Team Providers Care Nurse Staff Name Role Phone Deborah Peña DO Primary Care Provider [phone] Reason for Visit * Reason Onset Date Comments Referral 03/04/2023 Abnormal ultraso und findings-BPD, HC <5th percentile, femur length 6th percentile Encounter Details Date Type Department Care Team ([facility] Contact Info) Description 03/04/2023 Telephone Intranet Developer Obstetrics Maternal Medicine, [place] [address] [place], [place] [phone] [place], Nurse Intranet Developer [facility] [address] [place], [place] [phone] Referral (Abnormal ultrasound findings-BPD... Allergies No known active allergiesdocumented as of this encounter (statuses as of 06/03/2023) Medications Medication Sig Dispensed Refills Start Date End Date Status Formula 28-0.8-235 MG Oral Capsule Take by mouth. 0 Active Polyethylene Glycol 3350 17 GM Oral Packet Take 1 Packet by mouth in the morning. 0 Active documented as of this encounter (statuses as of 06/03/2023) Active Problems Problem Noted Date Diagnosed Date [...] as of this encounter (statuses as of 06/03/2023) Resolved Problems Problem Noted Date Diagnosed Date Resolved Date Gestational hypertension 05/08/2018 Overview: IOL tonight at 8 pm , normal first 08/01/201302/16 documented as of this encounter (statuses as of 06/03/2023) Immunizations Name Administration Dates Next Due COVID-19 mRNA, LNP-s, No Pre serve, 2-Dose Series ([employer]) 05/01/2021,09/05/2020,08/15/2020 documented as of this encounter Social History [...] money to get more. Never true 04/28/2023 [place] Depression Scale Answer Date Recorded [place] Depression Scale Total 3 04/28/2023 The thought [...] on file documented as of this encounter Miscellaneous Notes * Telephone Encounter - Catarina Demarco OSA - 03/04/2023 11:20 AM EDT Appointment scheduled * Telephone Encounter - Aylin Cervantes LPN - 03/04/2023 10:41 AM EDT Records Reviewed & Dating Scan Complete Estimated Date of Delivery: 07/15/23 Please schedule for LONG SCAN, in time frame of within 1 week at [place] [place] with the indication of Abnormal Ultrasound Findings-BPD, HC <5th percentile, femur length 6th percentile . Referring Provider: Gissel Laguerre Sent to scheduling pool documented in this encounter Plan of Treatment Upcoming Encounters Date Type Department Care Team (Late st Contact Info) Description 06/05/2023 3:00 PM EST Hem/Onc Treatment Hematology/Oncology Treatment, [place] [address] [place] [address] Mikala, Chair 11 Hem Onc Scenery [address] [place] [address] 06/11/2023 9:15 AM EST Office Visit Gynecology/Obstetrics [facility] [address] [place] [address] Backer, KLELY Roberts [address] [place] [address] 06/12/2023 3:00 PM EST Hem/Onc Treatment Hematology/Oncology Treatment, [place] [address] [place], [place] [address] Mikala, Chair 9 Hem Onc Sc[place]ery [address] [place], [place] [address] 06/17/2023 9:45 AM EST Pharmacy Pharmacy, [place] [address] [place] [address] Clinic, Anemia [address] [place] [address] 06/26/2023 9:15 AM EST Office Visit Gynecology/Obstetrics [facility] [address] [place] [address] Mackenzie Domingo PA-C [address] [place] [address] 07/03/2023 7:45 AM EST Office Visit Gynecology/Obstetrics [facility] [address] [place] [address] Mackenzie Domingo PA-C [address] [place] [address] 07/10/2023 8:30 AM EST Office Visit Gynecology/Obstetrics [facility] [address] [place] [address] Gissel Laguerre CRNP [address] [place] [address] 07/17/2023 10:30 AM EST Office Visit Gynecology/Obstetrics [facility] [address] [place] [address] Gissel Laguerre CRNP [address] [place] [address] Health Maintenance Due Date Last Done Comments [...] Not on filedocumented as of this encounter Care Teams Nurse Staff Relationship Specialty Start Date End Date Deborah Peña DO [address] [place] [address] PCP - General Family Medicine 06/12/22 documented as of this encounter
--- OUTSIDE RECORDS SUMMARY | 2023-07-18 11:25 | External Medical Summary | Summary of Care ---
Author Name Unknown Organization [facility] Address [address] [place] [address] Phone [phone] Care Team Providers Care Jailor Name Role Phone Deborah Peña DO Primary Care Provider [phone] Reason for Referral * (Within 10 days (routine)) Specialty Diagnoses / Procedures Referred By Fahad seymour Referred To Contact Gissel Schwab CRNP [address] [place] [address] Referral ID Status Reason Start Date Expiration Date Visits Re quested Visits Authorized Question Answer Referral Priority Within 10 days (routine) [facility] this [facility] be scheduled? [facility] Reason for Visit * Reason Onset Date Comments Test Results 04/29/2023 Encounter Details Date Type Department Care Team ([facility] Contact Info) Description 04/29/2023 Telephone Gynecology/Obstetrics [facility] [address] [facility] [address] Gissel Schwab CRNP [address] [place] [facility] [place] [address] Test Results Allergies No known active allergiesdocumented as of this encounter (statuses as of 06/04/2023) Medications Medication Sig Dispensed Refills Start Date End Date Status Formula 28-0.8-235 MG Oral Capsule Take by mouth. 0 Active Polyethylene Glycol 3350 17 GM Oral Packet Take 1 Packet by mouth in the morning. 0 Active Breast Pump Dispense double electric breast pump. Dx:Z39.1 1 Each 0 04/28/2023 Active documented as of this encounter (statuses as of 06/04/2023) Active Problems Problem Noted Date Diagnosed Date [...] as of this encounter (statuses as of 06/04/2023) Resolved Problems Problem Noted Date Diagnosed Date Resolved Date Gestational hypertension 05/08/2018 Overview: IOL tonight at 8 pm , normal first 08/01/201302/16 documented as of this encounter (statuses as of 06/04/2023) Immunizations Name Administration Dates Next Due COVID-19 mRNA, LNP-s, No Pre serve, 2-Dose Series ([employer] 05/01/2021,09/05/2020,08/15/2020 Seasonal Influenza, PF, 6 M & [...] money to get more. Never true 04/28/2023 [place] Depression Scale Answer Date Recorded [place] Depression Scale Total 3 04/28/2023 The thought [...] encounter Miscellaneous Notes * Telephone Encounter - Gissel Schwab CRNP - 04/29/2023 3:20 PM EST Signed. * Telephone Encounter - Renée Garcia LPN - 04/29/2023 1:57 PM EST Patient agreeable. * Telephone Encounter - Gissel Schwab CRNP - 04/29/2023 1:50 PM EST Please make pt aware that she passed her glucola, but she is anemic. Recommend iron infusions. If agreeable, please route back and I'll place the order. documented in this encounter Plan of Treatment Upcoming Encounters Date Type Department Care Team (Late st Contact Info) Description 06/05/2023 3:00 PM EST Hem/Onc Treatment Hematology/Oncology Treatment, [place] 200 [place] [address] [place], Chair 11 Hem Onc Scenery 200 [facility] [place] [address] 06/11/2023 9:15 AM EST Office Visit Gynecology/Obstetrics [facility] [address] [place] [address] BackerBhavana CRNP [address] [place] [address] 06/12/2023 3:00 PM EST Hem/Onc Treatment Hematology/Oncology Treatment, [place] [address] [place] [address] Mikala, Chair 9 Hem Onc Scenery 200 [facility] [place] [address] 06/17/2023 9:45 AM EST Pharmacy Pharmacy, [place] [address] [place], [place] [id number] Clinic, [facility] [address] [place] [address] 06/26/2023 9:15 AM EST Office Visit Gynecology/Obstetrics [facility] [address] [place] [address] Mackenzie Domingo PA-C [address] [place] [address] 07/03/2023 7:45 AM EST Office Visit Gynecology/Obstetrics [facility] [address] [place] [address] Mackenzie Domingo PA-C [address] [place] [address] 07/10/2023 8:30 AM EST Office Visit Gynecology/Obstetrics [facility] [address] [place] [address] Gissel Schwab CRNP [address] [place] [address] 07/17/2023 10:30 AM EST Office Visit Gynecology/Obstetrics [facility] [address] [place] [address] Gissel Schwab CRNP [address] [place] [address] Scheduled Referrals Name Type Priority Associated Diagnoses Orde r Schedule BLOOD MANAGEMENT REFERRAL Referral Within 10 days (routine) Antepartum anemia complicating Ordered: 04/29/2023 Health Maintenance Due Date Last Done Comments [...] of this encounter Visit Diagnoses Diagnosis Antepartum anemia complicating - Primary Anemia, antepartum documented in this encounter Care Teams Jailor Relationship Specialty Start Date End Date Deborah Peña DO [address] [place] [address] PCP - General Family Medicine 06/12/22 documented as of this encounter
--- OUTSIDE RECORDS SUMMARY | 2023-07-18 11:25 | External Medical Summary | Summary of Care ---
Author Name Unknown Organization [facility] Address [address] [place] [address] Phone [phone] Care Team Providers Care Barbecue Cook Name Role Phone Deborah Peña DO Primary Care Provider [phone] Reason for Visit * Reason Comments Return Visit Encounter Details Date Type Department Care Team ([facility] Contact Info) Description 05/13/2023 1:30 PM EST Office Visit Gynecology/Obstetric s [facility] [address] [place] [address] Gissel Schwab CRNP [address] [place] [address] Supervision of other normal , antepartum*; History of gestational hypertension; Abnormal findings on screening Allergies No known active allergiesdocumented as of this encounter (statuses as of 05/13/2023) Medications Medication Sig Dispensed Refills Start Date End Date Status Formula 28-0.8-235 MG Oral Capsule Take by mouth. 0 Active Polyethylene Glycol 3350 17 GM Oral Packet Take 1 Packet by mouth in the morning. 0 Active Breast Pump Dispense double electric breast pump. Dx:Z39.1 1 Each 0 04/28/2023 Active documented as of this encounter (statuses as of 05/13/2023) Active Problems Problem Noted Date Diagnosed Date [...] as of this encounter (statuses as of 05/13/2023) Resolved Problems Problem Noted Date Diagnosed Date Resolved Date Gestational hypertension 05/08/2018 Overview: IOL tonight at 8 pm , normal first 08/01/201302/16 documented as of this encounter (statuses as of 05/13/2023) Immunizations Name Administration Dates Next Due COVID-19 mRNA, LNP-s, No Pre serve, 2-Dose Series ([employer]) 05/01/2021,09/05/2020,08/15/2020 Seasonal Influenza, PF, 6 M & [...] Sign Reading Time Taken Comments Blood Pressure 112/74 05/13/2023 1:25 PM EST Pulse - - Temperature - - Respiratory Rate - - Oxygen Saturation - - Inhaled Oxygen Concentration - - Weight 64.4 kg (142 lb) 05/13/2023 1:25 PM EST Height 157.5 cm (5' 2") 05/13/2023 1:25 PM EST Body Mass Index 25.97 05/13/2023 1:25 PM EST documented in this encounter Progress Notes * Gissel Schwab CRNP - 05/13/2023 1:41 PM EST 31w No concerns. Scheduled to begin iron infusions in about 2 weeks. Solo start oral iron until then. Baby is active. No contractions, bleeding or LOF. KELLY Hogan * Temi Kolb LPN - 05/13/2023 1:28 PM EST 31w0d Denies concerns. First IV iron 05/29/2023. documented in this encounter Plan of Treatment Upcoming Encounters Date Type Department Care Team (Late st Contact Info) Description 05/20/2023 10:00 AM EST Pharmacy Pharmacy, [place] [address] [place] [facility] [place] [address] [facility] [address] [facility] [address] 05/28/2023 10:15 AM EST Office Visit Gynecology/Obstetrics [facility] [address] [place] [address] Gissel Schwab CRNP [address] [place] [address] 05/29/2023 1:15 PM EST Hem/Onc Treatment Hematology/Oncology Treatment, [place] [address] [facility] [place] [address] Mikala, Chair 11 Hem Onc Scenery [address] [place] [address] 06/11/2023 9:15 AM EST Office Visit Gynecology/Obstetrics [facility] [address] [place] [address] Bhavana Villegas CRNP [address] [place] [address] 06/26/2023 9:15 AM EST Office Visit Gynecology/Obstetrics [facility] [address] [place] [address] Mackenzie Domingo PA-C [address] [place] [address] Health Maintenance Due Date Last Done Comments Hepatitis B (1 of 3 - 3-dose series) 1989 Depression Screening 2001 HPV/Co-Test 10/26/2019 COVID-19 Vaccine (2022- 4 season) 2023 05/01/2021, 09/05/2020, 08/15/2020 Cervical [...] screening documented in this encounter Care Teams Barbecue Cook Relationship Specialty Start Date End Date Deborah Peña DO [address] [place] [address] PCP - General Family Medicine 06/12/22 documented as of this encounter
--- OUTSIDE RECORDS SUMMARY | 2023-07-18 11:25 | External Medical Summary | Summary of Care ---
Author Name Unknown Organization [facility] Address [address] [place] [address] Phone [phone] Care Team Providers Care Radio Operator Ground Name Role Phone Deborah Peña DO Primary Care Provider [phone] Reason for Visit * Reason Onset Date Comments Anemia Follow-Up 06/03/2023 Encounter Details Date Type Department Care Team (Late st Contact Info) Description 06/03/2023 10:00 AM [facility] Pharmacy Pharmacy, [place] [address] [place], [place] [id number] Clinic, Anemia [address] [place] [address] Iron deficiency anemia, unspecified iron deficiency anemia [...] mRNA, LNP-s, No Pre serve, 2-Dose Series ([employer]) 05/01/2021,09/05/2020,08/15/2020 Seasonal Influenza, PF, 6 M & [...] money to get more. Never true 04/28/2023 [place] Depression Scale Answer Date Recorded [place] Depression Scale Total 3 04/28/2023 The thought [...] Progress Notes * Lucy Joyner RPh - 06/03/2023 10:40 AM EST Patient received first dose of Venofer 300 mg x 3 repletion series on 05/29 and appeared to have tolerated it without issue. Next scheduled: 06/05 Scheduled to be completed: 06/12 GA: 34w0d Estimated Date of Delivery: 07/15/23 Follow-up after completion of series to ensure all doses are administered prior to delivery. Anemia Clinic will continue to follow. Thank you for allowing us to participate in the care of thispatient. Thanks, Lucy Joyner [facility] Clinical Pharmacist [facility] Anemia Clinic (P: [phone]) 06/03/2023 10:40 AM documented in this encounter Plan of Treatment Upcoming Encounters Date Type Department Care Team (Late st Contact Info) Description 06/05/2023 3:00 PM EST Hem/Onc Treatment Hematology/Oncology Treatment, [place] [address] [place] [address] Mikala, Chair 11 Hem Onc Scenery [address] [place] [address] 06/11/2023 9:15 AM EST Office Visit Gynecology/Obstetrics [facility] [address] [place] [address] Bhavana Villegas CRNP [address] [place] [address] 06/12/2023 3:00 PM EST Hem/Onc Treatment Hematology/Oncology Treatment, [place] [address] [place] [address] Mikala, Chair 9 Hem Onc Scenery [address] [place] [address] 06/17/2023 9:45 AM EST Pharmacy Pharmacy, [place] [address] [place] [address] Clinic, [facility] [address] [place] [address] 06/26/2023 9:15 AM EST Office Visit Gynecology/Obstetrics [facility] [address] [place] [address] Mackenzie Domingo PA-C [address] [place] [address] 07/03/2023 7:45 AM EST Office Visit Gynecology/Obstetrics [facility] [address] [place] [address] Mackenzie Domingo PA-C [address] [place] [address] 07/10/2023 8:30 AM EST Office Visit Gynecology/Obstetrics [facility] [address] [place] [address] Gissel Schwab CRNP [address] [place] [address] 07/17/2023 10:30 AM EST Office Visit Gynecology/Obstetrics [facility] [address] [place] [address] Gissel Schwab CRNP [address] [place] [address] Health Maintenance Due Date Last Done Comments [...] Primary documented in this encounter Care Teams Radio Operator Ground Relationship Specialty Start Date End Date Deborah Peña DO [address] [place] [address] PCP - General Family Medicine 06/12/22 documented as of this encounter
--- OUTSIDE RECORDS SUMMARY | 2023-07-18 11:25 | External Medical Summary | Summary of Care ---
Author Name Unknown Organization [facility] Address [address] [place] [address] Phone [phone] Care Team Providers Care Net Developer Consultant Name Role Phone Deborah Peña DO Primary Care Provider [phone] Reason for Visit * Reason Onset Date Comments Appointment 06/04/2023 Encounter Details Date Type Department Care Team ([facility] st Contact Info) Description 06/04/2023 Telephone Hematology/Oncology [facility] [address] [place], [place] [id number] Services, Scheduling [address] [place] [address] Appointment Allergies No known active allergiesdocumented as of this encounter (statuses as of 06/05/2023) Medications Medication Sig Dispensed Refills Start Date [...] as of this encounter (statuses as of 06/05/2023) Active Problems Problem Noted Date Diagnosed Date Iron deficiency anemia 05/05/2023 Anemia in 04/30/2023 Abnormal findings on screening 023 Overview: BPD, HC, 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 referral placed. Last Assessment & Plan: I [...] as of this encounter (statuses as of 06/05/2023) Resolved Problems Problem Noted Date Diagnosed Date Resolved Date Gestational hypertension 05/08/2018 Overview: IOL tonight at 8 pm , normal first 08/01/201302/16 documented as of this encounter (statuses as of 06/05/2023) Immunizations Name Administration Dates Next Due COVID-19 mRNA, LNP-s, No Pre serve, 2-Dose Series ([employer]) 05/01/2021,09/05/2020,08/15/2020 Seasonal Influenza, PF, 6 M & [...] money to get more. Never true 04/28/2023 [place] Depression Scale Answer Date Recorded [place] Depression Scale Total 3 04/28/2023 The thought [...] encounter Miscellaneous Notes * Telephone Encounter - Chaya Quiroz CMA - 06/05/2023 9:07 AM EST Called and spoke with Pauline; agreed to schedule 2/2 at 3pm for last venofer. Adjusted display notefor the appt 06/12 * Telephone Encounter - Blanquita Carrasco OSA - 06/04/2023 4:05 PM EST Pauline called and needs to r/s her treatment for tomorrow Please call her back thank you documented in this encounter Plan of Treatment Upcoming Encounters Date Type Department Care Team (Late st Contact Info) Description 06/11/2023 9:15 AM EST [facility] [address] [place] [address] [place], KELLY Roberts [address] [place] [address] 06/12/2023 3:00 PM EST Hem/Onc Treatment Hematology/Oncology Treatment, [place] [address] [place] [address] Mikala, Chair 9 Hem Onc Scenery [address] [place] [address] 06/17/2023 9:45 AM EST Pharmacy Pharmacy, [place] [address] [facility] [address] Clinic, Anemia [address] [facility], [place] [address] 06/19/2023 3:00 PM EST Hem/Onc Treatment Hematology/Oncology Treatment, [place] [address] [place] [address] Mikala, Chair 8 Hem Onc Scenery [address] [place] [address] 06/26/2023 9:15 AM EST Office Visit Gynecology/Obstetrics [facility] [address] [place] [address] Mackenzie Domingo PA-C [address] [place] [address] 07/03/2023 7:45 AM EST Office Visit Gynecology/Obstetrics [facility] [address] [place] [address] Mackenzie Domingo PA-C [address] [place] [address] 07/10/2023 8:30 AM EST Office Visit Gynecology/Obstetrics [facility] [address] [place] [address] Gissel Schwab CRNP [address] [place] [address] 07/17/2023 10:30 AM EST Office Visit Gynecology/Obstetrics [facility] [address] [place] [address] Gissel Schwab CRNP [address] [place] [address] Health Maintenance Due Date Last Done Comments [...] filedocumented as of this encounter Care Teams Net Developer Consultant Relationship Specialty Start Date End Date Deborah Peña DO [address] [place] [address] PCP - General Family Medicine 06/12/22 documented as of this encounter
--- OUTSIDE RECORDS SUMMARY | 2023-07-18 11:25 | External Medical Summary | Summary of Care ---
Author Name Unknown Organization [facility] Address [address] [place] [address] Phone [phone] Care Team Providers Care Technology Training Associate Name Role Phone Deborah Peña DO Primary Care Provider [phone] Encounter Details Date Type Department Care Team (Late st Contact Info) Description 06/04/2023 Telephone Hematology/Oncology [facility] [address] [place], [place] [phone] Services, Scheduling [address] [place] [address] Allergies No known active allergiesdocumented as of [...] HC, 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 [facility] referral placed. Last Assessment & [...] mRNA, LNP-s, No Pre serve, 2-Dose Series ([employer]) 05/01/2021,09/05/2020,08/15/2020 Seasonal Influenza, PF, 6 M & [...] money to get more. Never true 04/28/2023 [place] Depression Scale Answer Date Recorded [place] Depression Scale Total 3 04/28/2023 The thought [...] encounter Miscellaneous Notes * Telephone Encounter - Blanquita Carrasco OSA - 06/04/2023 4:05 PM EST Pauline called and needs to r/s her treatment for tomorrow Please call her back thank you documented in this encounter Plan of Treatment Upcoming Encounters Date Type Department Care Team (Late st Contact Info) Description 06/11/2023 9:15 AM EST Office Visit Gynecology/Obstetrics [facility] [address] [facility] [facility] [address] [place], KELLY Roberts [address] [place] [address] 06/12/2023 3:00 PM EST Hem/Onc Treatment Hematology/Oncology Treatment, [place] [address] [place] [address] Mikala, Chair 9 Hem Onc Scenery [address] [facility] [address] 06/17/2023 9:45 AM EST Pharmacy Pharmacy, [place] [address] [place] [address] Clinic, Anemia [address] [place] [address] 06/26/2023 9:15 AM EST Office Visit Gynecology/Obstetrics [facility] [address] [place] [address] Mackenzie Domingo PA-C [address] [place] [address] 07/03/2023 7:45 AM EST Office Visit Gynecology/Obstetrics [facility] [address] [place] [address] Mackenzie Domingo PA-C [address] [place] [address] 07/10/2023 8:30 AM EST Office Visit Gynecology/Obstetrics [facility] [address] [place] [address] Gissel Schwab CRNP [address] [place] [address] 07/17/2023 10:30 AM EST Office Visit Gynecology/Obstetrics [facility] [address] [place] [address] Gissel Schwab CRNP [address] [place] [address] Health Maintenance Due Date Last Done Comments Hepatitis B (1 of 3 - 3-dose series) 1989 Depression Screening 2001 HPV/Co-Test 10/26/2019 COVID-19 Vaccine (2022-2 4 season) [...] filedocumented as of this encounter Care Teams Technology Training Associate Relationship Specialty Start Date End Date Deborah Peña DO [address] [place] [address] PCP - General Family Medicine 06/12/22 documented as of this encounter
--- OUTSIDE RECORDS SUMMARY | 2023-07-18 11:25 | External Medical Summary | Summary of Care ---
Author Name Unknown Organization [facility] Address [address] [place] [address] Phone [phone] Care Team Providers Care Waterworks Pump Station Operator Name Role Phone Deborah Peña DO Primary Care Provider [phone] Reason for Visit * Reason Onset Date Comments Encounter Created in Error 06/11/2023 Encounter Details Date Type Department Care Team ([facility] st Contact Info) Description 06/11/2023 Telephone Gynecology/Obstetrics [facility] [address] [place], [place] [phone] Services, Scheduling [address] [place] [address] Encounter Created in Error Allergies No known active allergiesdocumented as of this encounter (statuses as of 06/11/2023) Medications Medication Sig Dispensed Refills Start Date [...] as of this encounter (statuses as of 06/11/2023) Active Problems Problem Noted Date Diagnosed Date [...] as of this encounter (statuses as of 06/11/2023) Resolved Problems Problem Noted Date Diagnosed Date Resolved Date Gestational hypertension 05/08/2018 Overview: IOL tonight at 8 pm , normal first 08/01/201302/16 documented as of this encounter (statuses as of 06/11/2023) Immunizations Name Administration Dates Next Due COVID-19 mRNA, LNP-s, No Pre serve, 2-Dose Series ([employer]) 05/01/2021,09/05/2020,08/15/2020 Seasonal Influenza, PF, 6 M & [...] money to get more. Never true 04/28/2023 [place] Depression Scale Answer Date Recorded [place] Depression Scale Total 3 04/28/2023 The thought [...] encounter Miscellaneous Notes * Telephone Encounter - Sanju Khanna OSA - 06/11/2023 8:06 AM EST ERROR documented in this encounter Plan of Treatment Upcoming Encounters Date Type Department Care Team (Late st Contact Info) Description 06/12/2023 3:00 PM EST Hem/Onc Treatment Hematology/Oncology Treatment, [address] [address] Mikala, Chair [address] [address] 06/17/2023 9:45 AM EST Pharmacy Pharmacy, [place] [address] [place] [address] Clinic, Anemia [address] [place] [address] 06/17/2023 3:00 PM EST Office Visit Gynecology/Obstetrics [facility] [address] [place] [address] Gissel Schwab CRNP [address] [place] [address] 06/19/2023 3:00 PM EST Hem/Onc Treatment Hematology/Oncology Treatment, [address] [place], [place] [address] Mikala, Chair 8 Hem Onc Scenery [address] [place] [address] 06/26/2023 9:15 AM EST [facility] [address] [place] [address] Mackenzie Domingo PA-C [address] [place] [address] 07/03/2023 7:45 AM EST Office [facility] [address] [place] [address] Mackenzie Domingo PA-C [address] [place] [address] 07/10/2023 8:30 AM EST Office [facility] [address] [place] [address] Gissel Schwab CRNP [address] [place] [address] 07/17/2023 10:30 AM EST Office Visit Gynecology/Obstetrics [facility] [address] [place] [address] Gissel Schwab CRNP [address] [place] [address] Health Maintenance Due Date Last Done Comments [...] filedocumented as of this encounter Care Teams Waterworks Pump Station Operator Relationship Specialty Start Date End Date Deborah Peña DO [address] [place] [address] PCP - General Family Medicine 06/12/22 documented as of this encounter
--- OUTSIDE RECORDS SUMMARY | 2023-07-18 11:25 | External Medical Summary | Summary of Care ---
Author Name Unknown Organization [facility] Address [address] [place] [address] Phone [phone] Care Team Providers Care Buhr Mill Operator Name Role Phone Deborah Peña DO Primary Care Provider [phone] Reason for Visit * Reason Comments Return Visit Encounter Details Date Type Department Care Team ([facility] Contact Info) Description 05/28/2023 10:15 AM EST Office Visit Gynecology/Obstetric s [facility] [address] [facility] [place] [address] Gissel Schwab CRNP [address] [facility] [place] [address] Supervision of other normal , antepartum*; History of gestational hypertension; Abnormal findings on screening Allergies No known active allergiesdocumented as of this encounter (statuses as of 05/28/2023) Medications Medication Sig Dispensed Refills Start Date [...] as of this encounter (statuses as of 05/28/2023) Active Problems Problem Noted Date Diagnosed Date [...] as of this encounter (statuses as of 05/28/2023) Resolved Problems Problem Noted Date Diagnosed Date Resolved Date Gestational hypertension 05/08/2018 Overview: IOL tonight at 8 pm , normal first 08/01/201302/16 documented as of this encounter (statuses as of 05/28/2023) Immunizations Name Administration Dates Next Due COVID-19 mRNA, LNP-s, No Pre serve, 2-Dose Series ([employer]) 05/01/2021,09/05/2020,08/15/2020 Seasonal Influenza, PF, 6 M & [...] money to get more. Never true 04/28/2023 [place] Depression Scale Answer Date Recorded [place] Depression Scale Total 3 04/28/2023 The thought [...] Sign Reading Time Taken Comments Blood Pressure 120/68 05/28/2023 10:08 AM EST Pulse - - Temperature - - Respiratory Rate - - Oxygen Saturation - - Inhaled Oxygen Concentration - - Weight 64.4 kg (142 lb) 05/28/2023 10:08 AM EST Height 157.5 cm (5' 2") 05/28/2023 10:08 AM EST Body Mass Index 25.97 05/28/2023 10:08 AM EST documented in this encounter Progress Notes * Gissel Schwab CRNP - 05/28/2023 10:28 AM EST 33w1d No concerns. Baby is active. No contractions, bleeding, or LOF. has already had vasectomy. KELLY Hogan * Krystal Mayberry LPN - 05/28/2023 10:08 AM EST 33w1d Denies any issues documented in this encounter Plan of Treatment Upcoming Encounters Date Type Department Care Team (Late st Contact Info) Description 05/29/2023 1:15 PM EST Hem/Onc Treatment Hematology/Oncology Treatment, [place] [address] [place], [place] [address] Mikala, Chair 11 Hem Onc Scenery [address] [place], [place] [address] 06/03/2023 10:00 AM EST Pharmacy Pharmacy, [place] [address] [place] [address] Clinic, Anemia [address] [place] [address] 06/11/2023 9:15 AM EST Office Visit Gynecology/Obstetrics [facility] [address] [place] [address] Bhavana Villegas CRNP [address] [place] [address] 06/26/2023 9:15 AM EST Office Visit Gynecology/Obstetrics [facility] [address] [place] [address] Mackenzie Domingo PA-C [address] [place] [address] 07/03/2023 7:45 AM EST Office Visit Gynecology/Obstetrics [facility] [address] [place] [address] Mackenzie Domingo PA-C [address] [place] [address] 07/10/2023 8:30 AM EST Office Visit Gynecology/Obstetrics [facility] [address] [place] [address] Gissel Schwab CRNP [address] [place] [address] 07/17/2023 10:30 AM EST Office Visit Gynecology/Obstetrics [facility] [address] [place] [address] Gissel Schwab CRNP [address] [place] [address] Health Maintenance Due Date Last Done Comments [...] screening documented in this encounter Care Teams Buhr Mill Operator Relationship Specialty Start Date End Date Deborah Peña DO [address] [place] [address] PCP - General Family Medicine 06/12/22 documented as of this encounter
--- OUTSIDE RECORDS SUMMARY | 2023-07-18 11:25 | External Medical Summary | Summary of Care ---
Author Name Unknown Organization [facility] Address [address] [place] [address] Phone [phone] Care Team Providers Care Account Services Analyst Name Role Phone Deobrah Peña DO Primary Care Provider [phone] Reason for Visit * Reason Comments IV Therapy Venofer Encounter Details Date Type Department Care Team (Latest Contact Info) Description 06/12/2023 3:00 PM EST Hem/Onc Treatment Hematology/Oncology Treatment, [place] [address] [place] [address] Mikala, Chair 9 Hem Onc [facility] [address] [place] [address] Antepartum anemia*; Iron deficiency anemia, unspecified iron deficiency anemia type Allergies No known active allergiesdocumented as of this encounter (statuses as of 06/12/2023) Medications Medication Sig Dispensed Refills Start Date [...] as of this encounter (statuses as of 06/12/2023) Active Problems Problem Noted Date Diagnosed Date Iron deficiency anemia 05/05/2023 Anemia in 04/30/2023 Abnormal findings on screening 023 Overview: BPD, HC, 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 [facility] referral placed. Last Assessment & Plan: [...] as of this encounter (statuses as of 06/12/2023) Resolved Problems Problem Noted Date Diagnosed Date Resolved Date Gestational hypertension 05/08/2018 Overview: IOL tonight at 8 pm , normal first 08/01/201302/16 documented as of this encounter (statuses as of 06/12/2023) Immunizations Name Administration Dates Next Due COVID-19 mRNA, LNP-s, No Pre serve, 2-Dose Series (Wild [employer]) 05/01/2021,09/05/2020,08/15/2020 Seasonal Influenza, PF, 6 M & [...] money to get more. Never true 04/28/2023 [place] Depression Scale Answer Date Recorded [place] Depression Scale Total 3 04/28/2023 The thought [...] Care Team (Late st Contact Info) Description 06/17/2023 9:45 AM EST Pharmacy Pharmacy, [place] [address] [place] [address] [facility] [address] [place] [address] 06/17/2023 3:00 PM EST Office Visit Gynecology/Obstetrics [facility] [address] [place] [address] Gissel Schwab CRNP [address] [place] [address] 06/19/2023 3:00 PM EST Hem/Onc Treatment Hematology/Oncology Treatment, [place] [address] [facility], [place] [address] Mikala, Chair 8 Hem Onc [place] [address] [facility], [place] [address] 06/26/2023 9:15 AM EST Office Visit Gynecology/Obstetrics [facility] [address] [place] [address] Mackenzie Domingo PA-C [address] [place] [address] 07/03/2023 7:45 AM EST Office Visit Gynecology/Obstetrics [facility] [address] [place] [address] Mackenzie Domingo PA-C [address] [place] [address] 07/10/2023 8:30 AM EST Office Visit Gynecology/Obstetrics [facility] [address] [place] [address] Gissel Schwab CRNP [address] [place] [address] 07/17/2023 10:30 AM EST Office Visit Gynecology/Obstetrics [facility] [address] [place] [address] Gissel Schwab CRNP [address] [place] [address] Health Maintenance Due Date Last Done Comments Hepatitis B (1 3 - 3-dose series) 1989 Depression Screening [...] ONCE PRN Other, Hypersensitivity Reaction, Starting on Thu06/12/23 at 1518, Until 06/13/23 at 1517, For 24 hours EPINEPHrine 1 MG/ML inj 0.3 mg 0.3 mg, Intramuscular, ONCE PRN Other, Hypersensitivity Reaction or Anaphylaxis, Starting on Thu06/12/23 at 1518, Until 06/13/23 at 1517, For 24 hours hEParin 100 UNIT/ML Lock Flush inj 500 Units 500 Units (5 mL), IV Lock, PRN Other, IV Flush, Starting on Thu06/12/23 at 1518, Until 06/13/23 at 1517, For 24 hours, Do not flush if lock, PICC, or central line not in place; IV infusing or unable to flush. Hydrocortisone Sod Suc (PF) (Solu-Cortef) inj 100 mg 100 mg, IV Push, ONCE PRN Other, Hypersensitivity Reaction, Starting on Thu06/12/23 at 1518, Until 06/13/23 at 1517, For 24 hours NSS infusion 500 mL, Intravenous, at 50 mL/hr, CONTINUOUS, Starting on Thu06/12/23 at 1630, Until 06/13/23 at 0229 Start Infusion 06/12/2023 3:18 PM EST 500 mL 50 mL/hr oxygen GAS Inhalation, OXYGEN, First dose on Thu06/12/23 at 1600, Until Discontinued, Device/Managed by: Low [...] Push, PRN Other, IV Flush, Starting on Thu06/12/23 at 1518, Until 06/13/23 at 1517, For 24 hours, Do not flush if [...] 3:18 PM EST 300 mg 166.67 mL/hr documented in this encounter Care Teams Account Services Analyst Relationship Specialty Start Date End Date Deborah Peña DO [address] [place] [address] PCP - General Family Medicine 06/12/22 documented as of this encounter
--- OUTSIDE RECORDS SUMMARY | 2023-07-18 11:25 | External Medical Summary | Summary of Care ---
Author Name Unknown Organization [facility] Address [address] [place] [address] Phone [phone] Care Team Providers Care Central Office Repairer Name Role Phone Deborah Peña DO Primary Care Provider [phone] Reason for Referral * Evaluate & Treat - Unlimited Visits (Within 10 days (routine)) - Authorized Specialty Diagnoses / Procedures Referred By Contac t Referred To Contact Pharmacist / Pharmacy Diagnoses PARKER (iron deficiency anemia) Gissel Schwab CRNP [address] [place] [address] Referral ID Status Reason Start Date Expiration Date Visits Requested Visits Authorized [id number] Authorized Specialty Services Required 3 99 99 Question Answer Referral Priority Within 10 days (routine) Where should this appointment be scheduled? External Referring Provider Role: Specialist Specialty: parliamentary archivist Reason for Referral: Anemia Comments Pharmacist Medication Therapy Management: Iron deficiency anemia Umesh Null RN Reason for Visit * Reason Onset Date Comments Blood Management Program 04/30/2023 Encounter Details Date Type Department Care Team (Late st Contact Info) Description 04/30/2023 Telephone Patient Blood Management, [place] [address] [place] [address] Gissel Schwab CRNP [address] [place] [address] Blood Management Program Allergies No known active allergiesdocumented as of this encounter (statuses as of 05/15/2023) Medications Medication Sig Dispensed Refills Start Date End Date Status Formula 28-0.8-235 MG Oral Capsule Take by mouth. 0 Active Polyethylene Glycol 3350 17 GM Oral Packet Take 1 Packet by mouth in the morning. 0 Active Breast Pump Dispense double electric breast pump. Dx:Z39.1 1 Each 0 04/28/2023 Active documented as of this encounter (statuses as of 05/15/2023) Active Problems Problem Noted Date Diagnosed Date [...] as of this encounter (statuses as of 05/15/2023) Resolved Problems Problem Noted Date Diagnosed Date Resolved Date Gestational hypertension 05/08/2018 Overview: IOL tonight at 8 pm , normal first 08/01/201302/16 documented as of this encounter (statuses as of 05/15/2023) Immunizations Name Administration Dates Next Due COVID-19 mRNA, LNP-s, No Pre serve, 2-Dose Series ([employer]) 05/01/2021,09/05/2020,08/15/2020 Seasonal Influenza, PF, 6 M & [...] money to get more. Never true 04/28/2023 [place] Depression Scale Answer Date Recorded [place] Depression Scale Total 3 04/28/2023 The thought [...] encounter Miscellaneous Notes * Telephone Encounter - Umesh Null RN - 04/30/2023 9:11 AM EST Recommend IV iron per OB MTM protocol. Patient agreeable, prefers infusion at [facility]. documented in this encounter Plan of Treatment Upcoming Encounters Date Type Department Care Team (Late st Contact Info) Description 05/20/2023 10:00 AM EST Pharmacy Pharmacy, [address] [address] Clinic, [place] [address] [facility] [place] [address] 05/28/2023 10:15 AM EST Office Visit Gynecology/Obstetrics [facility] [address] [facility] [place] [address] Gissel Schwab CRNP [address] [place] [address] 05/29/2023 1:15 PM EST Hem/Onc Treatment Hematology/Oncology Treatment, [place] [address] [place] [address] Mikala, Chair 11 Hem Onc [place] [address] [place] [address] 06/11/2023 9:15 AM EST Office Visit Gynecology/Obstetrics [facility] [address] [facility] [place] [address] Bhavana Villegas CRNP [address] [place] [address] 06/26/2023 9:15 AM EST Office Visit Gynecology/Obstetrics [facility] [address] [facility] [place] [address] Mackenzie Domingo PA-C [address] [place] [address] Scheduled Referrals Name Type Priority Associated Diagnoses Orde r Schedule PHARMACIST MEDS THERAPY MGMT REFERRAL OP Referral Within 10 days (routine) PARKER (iron deficiency anemia) Ordered: 04/30/2023 Health Maintenance Due Date Last Done Comments [...] as of this encounter Visit Diagnoses Diagnosis PARKER (iron deficiency anemia)- Primary Iron deficiency anemia, unspecified documented in this encounter Care Teams Central Office Repairer Relationship Specialty Start Date End Date Deborah Peña DO [address] [place] [address] PCP - General Family Medicine 06/12/22 documented as of this encounter
--- OUTSIDE RECORDS SUMMARY | 2023-07-18 11:26 | External Medical Summary ---
Author Name Unknown Address Unknown Organization K01:[facility] [place] [address] [place] [id number] Laboratory Report Ordering Provider Test Date Status LYNNE FOY 04/28/2023 10:03:38 Final Observation Date Value Abnormality Reference (Units ) Status Retic, % (auto) 04/28/2023 10:03:38 1.34 0.80-1.90 (%) Final Reticulocytes, Absolute 04/28/2023 10:03:38 46.6 31.3-100.1 (K/uL) Final Reticulocyte HGB 04/28/2023 10:03:38 31.8 29.7-37.4 (pg) Final Performing Location [facility] - [address] [place] [id number]
--- OUTSIDE RECORDS SUMMARY | 2023-07-18 11:26 | External Medical Summary ---
Author Name Unknown Address Unknown Organization [id number]:[facility] [place] [facility] [place] [id number] Laboratory Report Ordering Provider Test Date Status LIONEL FOYSIXTO 04/28/2023 10:03:38 Final Observation Date Value Abnormality Reference (Units ) Status WBC, Total 04/28/2023 10:03:38 7.43 4.00-10.8 0 (K/uL) Final RBC 04/28/2023 10:03:38 3.53 3.85-5.15 (M/uL) Final Hemoglobin 04/28/2023 10:03:38 10.8 Below low normal 12 .0-15.3 (g/dL) Final Anemia reflex testing trigge rs on a HGB < 12.0 for Females and HGB < 13.0 for Males in accordance with the WHO Anemia Guidelines
Anemia reflex testing triggers on a HGB < 12.0 for Females and HGB < 13.0 for Males in accordance with the WHO Anemia Guidelines HCT 04/28/2023 10:03:38 33.4 Below low normal 36. 0-45.2 (%) Final MCV 04/28/2023 10:03:38 94.6 81.5-97.5 (fL) Final MCH 04/28/2023 10:03:38 30.6 27.0-34.0 (pg) Final MCHC 04/28/2023 10:03:38 32.3 32.0-36.0 (g/dL) Final RDW 04/28/2023 10:03:38 12.2 11.5-15.5 (%) Final Platelets 04/28/2023 10:03:38 261 140-400 (K /uL) Final MPV 04/28/2023 10:03:38 10.0 6.6-11.1 ( fL) Final Nucleated erythrocytes/100 leukocytes [Ratio] in Blood by Automated count 04/28/2023 10:03:38 0 <=0 (/100 WBCs) Final Performing Location [facility] - [address] [facility] [place] [address]
--- OUTSIDE RECORDS SUMMARY | 2023-07-18 11:26 | External Medical Summary | Summary of Care ---
Author Name Unknown Organization [facility] Address [address] [place] [address] Phone [phone] Care Team Providers Care Low Pressure Boiler Tender Name Role Phone Deborah Peña DO Primary Care Provider [phone] Encounter Details Date Type Department Care Team (Late st Contact Info) Description 05/05/2023 Orders Only Pharmacy, [place] [address] [place], [place] [id number] [facility] [address] [place] [address] Allergies No known active allergiesdocumented as of this encounter (statuses as of 05/05/2023) Medications Medication Sig Dispensed Refills Start Date End Date Status Formula 28-0.8-235 MG Oral Capsule Take by mouth. 0 Active Polyethylene Glycol 3350 17 GM Oral Packet Take 1 Packet by mouth in the morning. 0 Active Breast Pump Dispense double electric breast pump. Dx:Z39.1 1 Each 0 04/28/2023 Active documented as of this encounter (statuses as of 05/05/2023) Active Problems Problem Noted Date Diagnosed Date Iron deficiency anemia 05/05/2023 Anemia in 04/30/2023 Abnormal findings on screening 023 Overview: BPD, HC, 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 [facility] referral placed. Last Assessment & Plan: [...] as of this encounter (statuses as of 05/05/2023) Resolved Problems Problem Noted Date Diagnosed Date Resolved Date Gestational hypertension 05/08/2018 Overview: IOL tonight at 8 pm , normal first 08/01/201302/16 documented as of this encounter (statuses as of 05/05/2023) Immunizations Name Administration Dates Next Due COVID-19 mRNA, LNP-s, No Pre serve, 2-Dose Series ([employer]) 05/01/2021,09/05/2020,08/15/2020 Seasonal Influenza, PF, 6 M & [...] money to get more. Never true 04/28/2023 [place] Depression Scale Answer Date Recorded [place] Depression Scale Total 3 04/28/2023 The thought [...] on file documented as of this encounter Plan of Treatment Upcoming Encounters Date Type Department Care Team (Late st Contact Info) Description 05/12/2023 10:00 AM EST Pharmacy Pharmacy, [address] [address] Clinic, [place] [address] [place] [address] 05/13/2023 1:30 PM EST Office Visit Gynecology/Obstetrics [facility] [address] [facility] [place] [address] Gissel Schwab CRNP [address] [place] [address] 05/28/2023 10:15 AM EST Office Visit Gynecology/Obstetrics [facility] [address] [place] [address] Gissel Schwab CRNP [address] [place] [address] 06/11/2023 9:15 AM EST Office Visit Gynecology/Obstetrics [facility] [address] [place] [address] Bhavana Villegas CRNP [address] [place] [address] 06/26/2023 9:15 AM EST [facility] [address] [place] [address] Mackenzie Domingo PA-C [address] [place] [address] Health Maintenance Due Date Last Done Comments [...] filedocumented as of this encounter Care Teams Low Pressure Boiler Tender Relationship Specialty Start Date End Date Deborah Peña DO [address] [place] [address] PCP - General Family Medicine 06/12/22 documented as of this encounter
--- OUTSIDE RECORDS SUMMARY | 2023-07-18 11:26 | External Medical Summary | Summary of Care ---
Author Name Unknown Organization [facility] Address [address] [place] [address] Phone [phone] Care Team Providers Care Camp Assistant Name Role Phone Deborah Peña DO Primary Care Provider Reason for Visit * Reason Onset Date Comments Return Visit Medication Administration 04/28/2023 Flu an d/or Pneumo Inj Encounter Details Date Type Department Care Team (Late st Contact Info) Description 04/28/2023 8:15 AM EST Office Visit Gynecology/Obstetric s [facility] [address] [place] [address] Gissel Schwab CRNP [address] [place] [address] Supervision of other normal , antepartum*; History of gestational hypertension; Abnormal findings on screening; Need for prophylactic vaccination and inoculation against influenza; Need for ghmzgredyu-benkmbf-ds rtussis (Tdap) vaccine Allergies No known active allergiesdocumented as of this encounter (statuses as of 04/28/2023) Medications Medication Sig Dispensed Refills Start Date End Date Status Formula 28-0.8-235 MG Oral Capsule Take by mouth. 0 Active Polyethylene Glycol 3350 17 GM Oral Packet Take 1 Packet by mouth in the morning. 0 Active Breast Pump Dispense double electric breast pump. Dx:Z39.1 1 Each 0 04/28/2023 Active documented as of this encounter (statuses as of 04/28/2023) Active Problems Problem Noted Date Diagnosed Date Abnormal findings on screening 023 Overview: BPD, [...] as of this encounter (statuses as of 04/28/2023) Resolved Problems Problem Noted Date Diagnosed Date Resolved Date Gestational hypertension 05/08/2018 Overview: IOL tonight at 8 pm , normal first 08/01/201302/16 documented as of this encounter (statuses as of 04/28/2023) Immunizations Name Administration Dates Next Due COVID-19 mRNA, LNP-s, No Pre serve, 2-Dose Series ([employer]) 05/01/2021,09/05/2020,08/15/2020 Seasonal Influenza, PF, 6 M & [...] money to get more. Never true 04/28/2023 [place] Depression Scale Answer Date Recorded [place] Depression Scale Total 3 04/28/2023 The thought [...] Sign Reading Time Taken Comments Blood Pressure 106/66 04/28/2023 8:09 AM EST Pulse - - Temperature - - Respiratory Rate - - Oxygen Saturation - - Inhaled Oxygen Concentration - - Weight 64 kg (141 lb) 04/28/2023 8:09 AM EST Height 157.5 cm (5' 2") 04/28/2023 8:09 AM EST Body Mass Index 25.79 04/28/2023 8:09 AM EST documented in this encounter Progress Notes * Gissel Schwab CRNP - 04/28/2023 8:32 AM EST 28w6d No concerns. Feels the best this out of all 3 pregnancies she has had. Baby is active. No contractions or bleeding. Glucola, TDAP, Flu vaccines today. Breast pump printed. KELLY Hogan documented in this encounter Nursing Notes * Temi Kolb LPN - 04/28/2023 8:39 AM EST Patient here for flu injection. Patient doing well no complaints. Injection given IM as ordered. Patient tolerated well. Patient to follow up as directed. Patient instructed to call if any complications. Patient verbalized understanding of instructions given and her follow up appt for CHEO Injection site: Left Deltoid Medication Source: Dispensed stock medication Patient here for tdap injection. Patient doing well no complaints. Injection given IM as ordered. Patient tolerated well. Patient to follow up as directed. Patient instructed to call if any complications. Patient verbalized understanding of instructions given and her follow up appt for CHEO. Injection site: Right Deltoid Medication Source: Dispensed stock medication * Temi Kolb LPN - 04/28/2023 8:15 AM EST 28w6d Will stop at lab after visit to start glucola. Would like tdap. documented in this encounter Plan of Treatment Upcoming Encounters Date Type Department Care Team (Late st Contact Info) Description 05/28/2023 10:15 AM EST Office Visit Gynecology/Obstetrics [facility] [address] [place] [address] Gissel Schwab CRNP [address] [place] [address] 06/11/2023 9:15 AM EST Office Visit Gynecology/Obstetrics [facility] [address] [place] [address] Bhavana Villegas CRNP [address] [place] [address] 06/26/2023 9:15 AM EST Office Visit Gynecology/Obstetrics [facility] [address] [place] [address] Mackenzie Domingo PA-C [address] [place] [address] Health Maintenance Due Date Last Done Comments [...] of gestational hypertension Abnormal findings on screening Need for prophylactic vaccination and inoculation against influenza Need for urhelouqqx-lfeokqs-njqfqpctd (Tdap) vaccine Need for prophylactic vaccination with combined vzfyyylqew-anpcxsf-quhwebric (DTP) vaccine documented in this encounter Care Teams Camp Assistant Relationship Specialty Start Date End Date Deborah Peña DO [address] [place] [address] PCP - General Family Medicine 06/12/22 documented as of this encounter
--- OUTSIDE RECORDS SUMMARY | 2023-07-18 11:26 | External Medical Summary ---
Author Name Unknown Address Unknown Organization K01:[facility] [place] [address] [place] [id number] Laboratory Report Ordering Provider Test Date Status DANIILYNNE 04/28/2023 10:03:38 Final Observation Date Value Abnormality Reference (Units ) Status Iron 04/28/2023 10:03:38 43 33-151 (ug/dL) Final Iron-binding capacity 04/28/2023 10:03:38 502 Above high normal 250-425 (ug/dL) Final Transferrin Sat % 04/28/2023 10:03:38 9 Below low normal 15-55 (%) Final Performing Location [facility]ORY [facility] [place] [address] [place] [address]
--- OUTSIDE RECORDS SUMMARY | 2023-07-18 11:26 | External Medical Summary | Summary of Care ---
Author Name Unknown Organization [facility] Address [address] [place] [address] Phone [phone] Care Team Providers Care Solder Cream Maker Name Role Phone Deborah Peña DO Primary Care Provider [phone] Reason for Visit * Reason Onset Date Comments Appointment 05/05/2023 Encounter Details Date Type Department Care Team ([facility] st Contact Info) Description 05/05/2023 Telephone Hematology/Oncology [facility] [address] [place] [address] Gissel Schwab CRNP [address] [place] [address] Appointment Allergies No known active allergiesdocumented as of this encounter (statuses as of 05/06/2023) Medications Medication Sig Dispensed Refills Start Date End Date Status Formula 28-0.8-235 MG Oral Capsule Take by mouth. 0 Active Polyethylene Glycol 3350 17 GM Oral Packet Take 1 Packet by mouth in the morning. 0 Active Breast Pump Dispense double electric breast pump. Dx:Z39.1 1 Each 0 04/28/2023 Active documented as of this encounter (statuses as of 05/06/2023) Active Problems Problem Noted Date Diagnosed Date [...] as of this encounter (statuses as of 05/06/2023) Resolved Problems Problem Noted Date Diagnosed Date Resolved Date Gestational hypertension 05/08/2018 Overview: IOL tonight at 8 pm , normal first 08/01/201302/16 documented as of this encounter (statuses as of 05/06/2023) Immunizations Name Administration Dates Next Due COVID-19 mRNA, LNP-s, No Pre serve, 2-Dose Series ([employer]) 05/01/2021,09/05/2020,08/15/2020 Seasonal Influenza, PF, 6 M & [...] money to get more. Never true 04/28/2023 [place] Depression Scale Answer Date Recorded [place] Depression Scale Total 3 04/28/2023 The thought [...] encounter Miscellaneous Notes * Telephone Encounter - Scooter Crocker RN - 05/06/2023 4:01 PM EST [place] plan signed. Scheduling- Please call patient to schedule 2 hour appointment "Venofer 05/20" (KELLY Dempsey). Patient will need weekly infusion x 3. Thank you. * Telephone Encounter - Scooter Crocker RN - 05/05/2023 12:21 PM EST [place] plan entered and sent to [facility] as requested. Will await signature. IV Venofer doesn't require authorization. documented in this encounter Plan of Treatment Upcoming Encounters Date Type Department Care Team (Late st Contact Info) Description 05/13/2023 1:30 PM EST [facility] [address] [place] [address] Gissel Schwab CRNP [address] [place] [address] 05/20/2023 10:00 AM EST Pharmacy Pharmacy, [address] [place] [address] Clinic, An[place] [address] [facility], [place] [address] 05/28/2023 10:15 AM EST Office Visit Gynecology/Obstetrics [facility] [address] [place] [address] Gissel Schwab CRNP [address] [place] [address] 06/11/2023 9:15 AM EST Office Visit Gynecology/Obstetrics [facility] [address] [place] [address] Bhavana Villegas CRNP [address] [place] [address] 06/26/2023 9:15 AM EST Office Visit Gynecology/Obstetrics [facility] [address] [place], [place] [address] Mackenzie Domingo PA-C [address] [place] [address] Health Maintenance Due Date Last Done Comments [...] filedocumented as of this encounter Care Teams Solder Cream Maker Relationship Specialty Start Date End Date Deborah Peña DO [address] [place] [address] PCP - General Family Medicine 06/12/22 documented as of this encounter
--- OUTSIDE RECORDS SUMMARY | 2023-07-18 11:26 | External Medical Summary ---
Author Name Unknown Address Unknown Organization K01:[facility] [place] [address] [place] [id number] Laboratory Report Ordering Provider Test Date Status LYNNE FOY 04/28/2023 10:03:38 Final Observation Date Value Abnormality Reference (Units ) Status Folic Acid 04/28/2023 10:03:38 16.9 >4.5 (ng/ mL) Final Performing Location [facility] - [address] [place] [id number]
--- OUTSIDE RECORDS SUMMARY | 2023-07-18 11:26 | External Medical Summary | Summary of Care ---
Author Name Unknown Organization [facility] Address [address] [place] [address] Phone [phone] Care Team Providers Care Social Economist Name Role Phone Deborah Peña DO Primary Care Provider [phone] Reason for Visit * Reason Comments Return Visit Encounter Details Date Type Department Care Team ([facility] Contact Info) Description 04/01/2023 9:30 AM EST Office Visit Gynecology/Obstetric s [facility] [address] [facility] [place] [address] Gissel Schwab CRNP [address] [facility] [place] [address] Supervision of other normal , antepartum*; History of gestational hypertension; Abnormal findings on screening Allergies No known active allergiesdocumented as of this encounter (statuses as of 04/01/2023) Medications Medication Sig Dispensed Refills Start Date End Date Status Formula 28-0.8-235 MG Oral Capsule Take by mouth. 0 Active Polyethylene Glycol 3350 17 GM Oral Packet Take 1 Packet by mouth in the morning. 0 Active documented as of this encounter (statuses as of 04/01/2023) Active Problems Problem Noted Date Diagnosed Date Abnormal findings on screening 023 Overview: BPD, HC, 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 [facility] referral placed. Last Assessment & Plan: [...] as of this encounter (statuses as of 04/01/2023) Resolved Problems Problem Noted Date Diagnosed Date Resolved Date Gestational hypertension 05/08/2018 Overview: IOL tonight at 8 pm , normal first 08/01/201302/16 documented as of this encounter (statuses as of 04/01/2023) Immunizations Name Administration Dates Next Due COVID-19 mRNA, LNP-s, No Pre serve, 2-Dose Series ([employer]) 05/01/2021,09/05/2020,08/15/2020 documented as of this encounter Social History Tobacco Use Types Packs/Day Years Used Date Smoking Tobacco: Never Smokeless Tobacco: Never Alcohol Use Standard Drinks/Week Comments No 0 (1 standard drink = 0.6 oz pur e alcohol) Estimated Date of Delivery Comme nts Yes 07/15/2023 Based on Ultraso und Sex and Gender Information Value Date Recorded Sex Assigned at Not on file Gender Identity Not on file Sexual Orientation Not on file Job Start Date Occupation Industry Not on file Not on file Not on file documented as of this encounter Last Filed Vital Signs Vital Sign Reading Time Taken Comments Blood Pressure 100/68 04/01/2023 9:34 AM EST Pulse - - Temperature - - Respiratory Rate - - Oxygen Saturation - - Inhaled Oxygen Concentration - - Weight 62.8 kg (138 lb 6.4 oz) 04/01/2023 9:34 A M EST Height 157.5 cm (5' 2") 04/01/2023 9:34 AM EST Body Mass Index 25.31 04/01/2023 9:34 AM EST documented in this encounter Progress Notes * Gissel Schwab CRNP - 04/01/2023 10:08 AM EST 25w Noticing some heaviness in belly after a busy day. Reassured this is fine. No other concerns. Baby is active. No contractions, bleeding, or LOF. Glucola with next visit. KELLY Hogan * Kayce De La Cruz LPN - 04/01/2023 9:49 AM EST 25w0d Pt feeling increased pressure in pelvic area, chelsea with increased activity. 28wk packet provided. documented in this encounter Plan of Treatment Upcoming Encounters Date Type Department Care Team (Late st Contact Info) Description 04/21/2023 9:00 AM EST Laboratory Laboratory, [facility] [address] [facility] [place] [id number] GlezMaryann staton Rust [address] [facility] [place] [address] 04/21/2023 9:15 AM EST Office Visit Gynecology/Obstetrics [facility] [address] [place] [address] Gissel Schwab CRNP [address] [place] [address] 06/15/2023 9:40 AM EST Office Visit Family Practice [facility] [address] [place] [address] Deborah Peña DO [address] [place] [address] Scheduled Orders Name Type Priority Associated Diagnoses Orde r Schedule SYPHILIS ANTIBODY SCREEN WITH REFLEX TO RPR Lab Routine Supervision of other normal , antepartum Expected: 05/01/2023 (Approximate), Expires: 04/01/2024 CBC WITH WBC DIFFERENTIAL AND ANEMIA REFLEX WORKUP Lab Routine Supervision of other normal , antepartum Expected: 05/01/2023 (Approximate), Expires: 04/01/2024 50-G GESTATIONAL GLUCOSE, 1 HOUR Lab Routine Supervision of other normal , antepartum Expected: 05/01/2023 (Approximate), Expires: 04/01/2024 Health Maintenance Due Date Last Done Comments Hepatitis B (1 of 3 - 3-dose series) 1989 Depression Screening 2001 DTaP,Tdap,and Td Vaccines (1 - Tdap) 2008 HPV/Co-Test 10/26/2019 COVID-19 Vaccine (4 - 2022-2 4 season) 2023 05/01/2021, 09/05/2020, 08/15/2020 Influenza Vaccine (FLU shot) (#1) 2023 02/15/2018 Cervical Cancer Screening 03/08/2024 Pap Smear 03/08/2024 03/08/2021, 08/01/2013 GARDASIL-HPV IMMUNIZATION SERIES Aged Out No longer [...] screening documented in this encounter Care Teams Social Economist Relationship Specialty Start Date End Date Deborah Peña DO [address] [place] [address] PCP - General Family Medicine 06/12/22 documented as of this encounter
--- OUTSIDE RECORDS SUMMARY | 2023-07-18 11:26 | External Medical Summary | Summary of Care ---
Author Name Unknown Organization [facility] Address [address] [place] [address] Phone [phone] Care Team Providers Care Setter Automatic Spinning Lathe Name Role Phone Deborah Peña DO Primary Care Provider [phone] Reason for Visit * Reason Comments Blood Management Program Encounter Details Date Type Department Care Team (Late st Contact Info) Description 04/30/2023 Documentation Patient Blood Management, [place] [address] [place] [address] Umesh Null RN Allergies No known active allergiesdocumented as of this encounter (statuses as of 04/30/2023) Medications Medication Sig Dispensed Refills Start Date End Date Status Formula 28-0.8-235 MG Oral Capsule Take by mouth. 0 Active Polyethylene Glycol 3350 17 GM Oral Packet Take 1 Packet by mouth in the morning. 0 Active Breast Pump Dispense double electric breast pump. Dx:Z39.1 1 Each 0 04/28/2023 Active documented as of this encounter (statuses as of 04/30/2023) Active Problems Problem Noted Date Diagnosed Date Anemia in 04/30/2023 Abnormal findings on screening 023 Overview: BPD, HC, 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 [facility] referral placed. Last Assessment & Plan: [...] as of this encounter (statuses as of 04/30/2023) Resolved Problems Problem Noted Date Diagnosed Date Resolved Date Gestational hypertension 05/08/2018 Overview: IOL tonight at 8 pm , normal first 08/01/201302/16 documented as of this encounter (statuses as of 04/30/2023) Immunizations Name Administration Dates Next Due COVID-19 mRNA, LNP-s, No Pre serve, 2-Dose Series ([employer]) 05/01/2021,09/05/2020,08/15/2020 Seasonal Influenza, PF, 6 M & [...] money to get more. Never true 04/28/2023 [place] Depression Scale Answer Date Recorded [place] Depression Scale Total 3 04/28/2023 The thought [...] as of this encounter Progress Notes * Umesh Null RN - 04/30/2023 9:06 AM EST REFERRAL - Patient Blood Management Name: Pauline Phillips REQUESTING SERVICE: Letty Glez OB REASON FOR REFERRAL: new evaluation outpatient, anemia in [place]: 07/15/23 Anemia Evaluation: Latest Reference Range & Units 04/28/23 10:03 HGB 12.0 - 15.3 g/dL 10.8 (L) HCT 36.0 - 45.2 % 33.4 (L) Iron 33 - 151 ug/dL 43 Iron Binding Capacity 250 - 425 ug/dL 502 (H) Transferrin Saturation Percent 15 - 55 % 9 (L) Ferritin 13 - 150 ng/mL 12 (L) Vitamin B12 232 - 1,245 pg/mL 431 Folic Acid >4.5 ng/mL 16.9 Reticulocyte Hemoglobin 29.7 - 37.4 pg 31.8 Current Patient Medications: Medications that may impair hemostasis: none Medications that may impair iron absorption: none Patient Refused Blood Transfusion? (e.g. Taoism): no Possible Contributing Factors: iron deficiency Treatment Recommendations: IV iron per OB MTM protocol Follow-up Recommendations: Follow up with PCP for further assessment/management of anemia post discharge. 04/30 - Spoke with patient, agreeable to IV iron at [facility]. Thank you for allowing Blood Management to participate in the care of this patient. documented in this encounter Plan of Treatment Upcoming Encounters Date Type Department Care Team (Late st Contact Info) Description 05/13/2023 1:30 PM EST Office Visit Gynecology/Obstetrics [facility] [address] [place] [address] Gissel Schwab CRNP [address] [place] [address] 05/28/2023 10:15 AM EST Office Visit Gynecology/Obstetrics [facility] [address] [place] [address] Gissel Schwab CRNP [address] [place] [address] 06/11/2023 9:15 AM EST Office Visit Gynecology/Obstetrics [facility] [address] [place] [address] Bhavana Villegas CRNP [address] [place] [address] 06/26/2023 9:15 AM EST Office Visit Gynecology/Obstetrics [facility] [address] [place] [address] Mackenzie Domingo PA-C [address] [place] [address] Health Maintenance Due Date Last Done Comments [...] filedocumented as of this encounter Care Teams Setter Automatic Spinning Lathe Relationship Specialty Start Date End Date Deborah Peña DO [address] [place] [address] PCP - General Family Medicine 06/12/22 documented as of this encounter
--- OUTSIDE RECORDS SUMMARY | 2023-07-18 11:26 | External Medical Summary | Summary of Care ---
Author Name Unknown Organization [facility] Address [address] [place] [address] Phone [phone] Care Team Providers Care Job Service Consultant Name Role Phone Deborah Peña DO Primary Care Provider [phone] Reason for Visit * Evaluate & Treat - Unlimited Visits (Within 10 days (routine)) - Authorized Specialty Diagnoses / Procedures Referred By Contac t Referred To Contact Obstetrics/Gynecology / Maternal Medicine Diagnoses Abnormal findings on screening Gissel Schwab CRNP [address] [place] [address] Referral ID Status Reason Start Date Expiration Date Visits Requested Visits Authorized [id number] Authorized Specialty Services Required 3 [phone] Encounter Details Date Type Department Care Team ([facility] Contact Info) Description 03/09/2023 1:30 PM EDT Office Visit Camera Systems Engineer Obstetrics Maternal Medicine, [place] [address] [place] [address] Aneesh Garrido MD [address], [place] [id number] Abnormal findings on screening* Allergies No known active allergiesdocumented as of this encounter (statuses as of 03/09/2023) Medications Medication Sig Dispensed Refills Start Date End Date Status Formula 28-0.8-235 MG Oral Capsule Take by mouth. 0 Active Polyethylene Glycol 3350 17 GM Oral Packet Take 1 Packet by mouth in the morning. 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 [facility] referral placed. Last Assessment & Plan: [...] as of this encounter (statuses as of 03/09/2023) Resolved Problems Problem Noted Date Diagnosed Date Resolved Date Gestational hypertension 05/08/2018 Overview: IOL tonight at 8 pm , normal first 08/01/201302/16 documented as of this encounter (statuses as of 03/09/2023) Immunizations Name Administration Dates Next Due COVID-19 mRNA, LNP-s, No Pre serve, 2-Dose Series ([employer]) 05/01/2021,09/05/2020,08/15/2020 documented as of this encounter Social [...] as of this encounter Progress Notes * Aneesh Garrido MD - 03/09/2023 12:53 PM EDT MATERNAL MEDICINE VISIT Pauline Phillips is at 21w5d who presents to [facility] for an ultrasound and follow-up of her high risk . The patient is currently 21 weeks and 5 days gestation comes in for an evaluation of anatomy.She would an outside ultrasound on March 02 that showed the biparietal diameter of the head circumference be less than the 5th percentile for the gestational age. I did review the images from this ultrasound on March 02 and do agree that the biparietal diameter head circumference as measured are less than the 5th percentile for the gestational age. She is being seen today by Maternal- Medicine for the following reasons: Problem List Items Addressed This Visit Abnormal findings on screening - Primary I reviewed the ultrasound with her. The [...] from March 02. I told her that thehead circumference being at the 13th percentile for the gestational age is appropriate for this gestational age. Therefore, there is no clinical indication for return. We reviewed today's ultrasound findings. (For full report, please refer to ultrasound report provided separately). Ms. Phillips's questions were answered to her satisfaction. Ms. Phillips was instructed to notify her primary manager retention if she felt regular contractions (approximately every 10 mins), leaking of fluid, vaginal bleeding or if movement decreased. Thank you for allowing us to participate in the care of this patient. Please call with any questions. Aneesh Garrido MD 03/09/2023 12:53 PM documented in this encounter Miscellaneous Notes * Assessment & Plan Note - Aneesh Garrido MD - 03/09/2023 2:31 PM EDT Associated Problem(s): Abnormal findings on screening I reviewed the ultrasound with her. The [...] from March 02. I told her that thehead circumference being at the 13th percentile for the gestational age is appropriate for this gestational age. Therefore, there is no clinical indication for return. documented in this encounter Plan of Treatment Upcoming Encounters Date Type Department Care Team (Late st Contact Info) Description 04/01/2023 9:30 AM EST Office Visit Gynecology/Obstetrics [facility] [address] [place] [address] Gissel Schwab CRNP [address] [place] [address] 06/15/2023 9:40 AM EST Office Visit Family Practice [facility] [address] [place] [address] Deborah Peña DO [address] [place] [address] Scheduled Orders Name Type Priority Associated Diagnoses Orde r Schedule MFM US PREG FOLLOW UP EACH FETUS Medical Imaging Routine Abnormal findings on screening 4 Occurrences starting 03/09/2023 until 07/15/2023 Health Maintenance Due Date Last Done Comments [...] as of this encounter Visit Diagnoses Diagnosis Abnormal findings on screening- Primary documented in this encounter Care Teams Job Service Consultant Relationship Specialty Start Date End Date Deborah Peña DO [address] [place] [address] PCP - General Family Medicine 06/12/22 documented as of this encounter
--- OUTSIDE RECORDS SUMMARY | 2023-07-18 11:26 | External Medical Summary | Summary of Care ---
Author Name Unknown Organization [facility] Address [address] [place] [address] Phone [phone] Care Team Providers Care Linux Systems Analyst Name Role Phone Deborah Peña DO Primary Care Provider [phone] Reason for Visit * Reason Onset Date Comments Appointment 05/05/2023 Encounter Details Date Type Department Care Team ([facility] st Contact Info) Description 05/05/2023 Telephone Hematology/Oncology [facility] [address] [place] [address] Gissel Schwab CRNP [address] [place] [address] Appointment Allergies No known active allergiesdocumented as [...] mRNA, LNP-s, No Pre serve, 2-Dose Series ([employer] 05/01/2021,09/05/2020,08/15/2020 Seasonal Influenza, PF, 6 M & [...] money to get more. Never true 04/28/2023 [place] Depression Scale Answer Date Recorded [place] Depression Scale Total 3 04/28/2023 The thought [...] Miscellaneous Notes * Telephone Encounter - Scooter Crocker, RN - 05/05/2023 12:21 PM EST Schulter plan entered and sent to [facility] as requested. Will await signature. MONI Rascon doesn't require authorization. documented in this encounter Plan of Treatment Upcoming Encounters Date Type Department Care Team (Late st Contact Info) Description 05/05/2023 4:00 PM EST Pharmacy Pharmacy, [place] [address] [place] [address] Clinic, Anemia [address] [place] [address] Iron deficiency anemia, unspecified iron deficiency anemia type* 05/12/2023 10:00 AM EST Pharmacy Pharmacy, [place] [address] [place] [address] Clinic, Anemia [address] [place] [address] 05/13/2023 1:30 PM EST Office Visit Gynecology/Obstetric s [facility] [address] [place] [address] Gissel Schwab CRNP [address] [place] [address] 05/28/2023 10:15 AM EST Office Visit Gynecology/Obstetric s [facility] [address] [place] [address] Gissel Schwab CRNP [address] [place] [address] 06/11/2023 9:15 AM EST Office Visit Gynecology/Obstetric s [facility] [address] [place] [address] Bhavana Villegas CRNP [address] [place] [address] 06/26/2023 9:15 AM EST Office Visit Gynecology/Obstetric s [facility] [address] [place] [address] Mackenzie Domingo PA-C [address] [place] [address] Health Maintenance Due Date Last Done Comments [...] filedocumented as of this encounter Care Teams Linux Systems Analyst Relationship Specialty Start Date End Date Deborah Peña DO [address] [place] [address] PCP - General Family Medicine 06/12/22 documented as of this encounter
--- OUTSIDE RECORDS SUMMARY | 2023-07-18 11:26 | External Medical Summary ---
Author Name Unknown Address Unknown Organization [id number]:[facility] [place] [address] [place] [address] Laboratory Report Ordering Provider Test Date Status LYNNE FOY 04/28/2023 10:03:38 Final Observation Date Value Abnormality Reference (Units ) Status Glucose [Moles/volume] in Serum or Plasma --1 hour post 50 g glucose PO 04/28/2023 10:03:38 114 70-129 (mg/dL) Final Performing Location [facility] [place] [address] [place] [address]
--- OUTSIDE RECORDS SUMMARY | 2023-07-18 11:26 | External Medical Summary ---
Author Name Unknown Address Unknown Organization [id number]:[facility] - [facility] [address] [place] [address] Laboratory Report Ordering Provider Test Date Status LYNNE FOY 04/28/2023 10:03:38 Final Observation Date Value Abnormality Reference (Units ) Status Creatinine 04/28/2023 10:03:38 0.5 0.5-1.0 (mg/dL) Final Glomerular filtration rate/1.73 sq M.predicted [Volume Rate/Area] in Serum, Plasma or Blood by Creatinine-based formula (CKD-EPI) 04/28/2023 10:03:38 >90 >=60 (mL/min) Final eGFR is calculated based on the CKD-EPI 2020 equation Performing Location [facility] - [address] [place] [address]
--- OUTSIDE RECORDS SUMMARY | 2023-07-18 11:26 | External Medical Summary | Summary of Care ---
Author Name Unknown Organization [facility] Address [address] [place] [address] Phone [phone] Care Team Providers Care Divisional Storekeeper Name Role Phone Deborah Peña DO Primary Care Provider [phone] Reason for Visit * Reason Onset Date Comments Anemia Follow-Up 05/05/2023 * Evaluate & Treat - Unlimited Visits (Within 10 days (routine)) - Authorized Specialty Diagnoses / Procedures Referred By Contac t Referred To Contact Pharmacist / Pharmacy Diagnoses PARKER (iron deficiency anemia) Gissel Schwab CRNP [address] [place] [address] Referral ID Status Reason Start Date Expiration Date Visits Requested Visits Authorized [id number] Authorized Specialty Services Required 3 [phone] Encounter Details Date Type Department Care Team ([facility] Contact Info) Description 05/05/2023 4:00 PM [facility] Pharmacy Pharmacy, [place] [address], [place] [phone] Clinic, Anemia [address] [place], [place] [id number] Iron deficiency anemia, unspecified iron deficiency anemia [...] mRNA, LNP-s, No Pre serve, 2-Dose Series ([employer]) 05/01/2021,09/05/2020,08/15/2020 Seasonal Influenza, PF, 6 M & [...] money to get more. Never true 04/28/2023 [place] Depression Scale Answer Date Recorded [place] Depression Scale Total 3 04/28/2023 The thought [...] of this encounter Progress Notes * Lucy Joyner, [facility] - 05/05/2023 11:38 AM EST Patient Phone Numbers Patient referred by KELLY Dempsey for evaluation of anemia by the Anemia Clinic. Called patient to introduce role/clinic and to review labs from 04/28. Hgb: 10.8 g/dL TSAT: 9 % Ferritin: 12 ng/mL B12: 431 pg/mL FA: 16.9 ng/mL GA: 29w6d Estimated Date of Delivery: 07/15/23 Hgb is below target range for the third trimester. Iron studies below target range. B12 level within target range. FA level within target range. Patient reports feeling tired, but nothing out of the norm and otherwise denies signs/symptoms of anemia. Patient qualifies for IV iron repletion. Plan: Venofer 300 mg IV weekly x 3 doses at [facility]. Orders placed and routed to appropriate parties. Patient agreeable to intervention. Follow-up labs to be scheduled ~4-6 weeks after iron repletion completed if appropriate prior to delivery. Anemia Clinic will continue to follow. Thank you for allowing us to participate in the care of thispatient. Thanks, Lucy Joyner [facility] Clinical Pharmacist [facility] Anemia Clinic (P: [phone]) 05/05/2023 11:38 AM documented in this encounter Plan of Treatment Upcoming Encounters Date Type Department Care Team (Late st Contact Info) Description 05/12/2023 10:00 AM EST Pharmacy Pharmacy, [address] [address] Clinic, Anemia [address] [place] [address] 05/13/2023 1:30 PM EST Office Visit Gynecology/Obstetrics [facility] [address] [place] [address] Gissel Schwab CRNP [address] [place] [address] 05/28/2023 10:15 AM EST Office Visit Gynecology/Obstetrics [facility] [address] [place] [address] Gissel Schwab CRNP [address] [place] [address] 06/11/2023 9:15 AM EST Office Visit Gynecology/Obstetrics [facility] [address] [place] [address] Bhavana Villegas CRNP [address] [place] [address] 06/26/2023 9:15 AM EST Office Visit Gynecology/Obstetrics [facility] [address] [place] [address] Mackenzie Domigno PA-C [address] [place] [address] Scheduled Referrals Name Type Priority Associated Diagnoses [...] Primary documented in this encounter Care Teams Divisional Storekeeper Relationship Specialty Start Date End Date Deborah Peña DO [address] [place] [address] PCP - General Family Medicine 06/12/22 documented as of this encounter
--- OUTSIDE RECORDS SUMMARY | 2023-07-18 11:26 | External Medical Summary | Summary of Care ---
Author Name Unknown Organization [facility] Address [address] [place] [address] Phone [phone] Care Team Providers Care Inbound Ingredient Logistics Specialist Name Role Phone Deborah Peña DO Primary Care Provider [phone] Reason for Visit * Reason Comments Return Visit Encounter Details Date Type Department Care Team Description 03/02/2023 Office Visit Gynecology/Obstetrics Timbo Glez [address] [place] [address] Mackenzie Domingo PA-C [address] [place] [address] Supervision of other normal , antepartum*; History of gestational hypertension Allergies No known active allergiesdocumented as of this encounter (statuses as of 03/02/2023) Medications Medication Sig Dispensed Refills Start Date End Date Status Formula 28-0.8-235 MG Oral Capsule Take by mouth. 0 Active Polyethylene Glycol 3350 17 GM Oral Packet Take 1 Packet by mouth in the morning. 0 Active documented as of this encounter (statuses as of 03/02/2023) Active Problems Problem Noted Date Supervision of other normal , a ntepartum 01/28/2023 History of gestational hypertension 01/16 Family history of congenital heart defec t 08/01/2013 Overview: Pt's sister born with "hole in heart," No surgical intervention required; Will get more exact diagnosis for upcoming visits Estimated Date of Delivery Comme nts Yes 07/15/2023 Based on Ultraso und documented as of this encounter (statuses as of 03/02/2023) Resolved Problems Problem Noted Date Resolved Date Gestational hypertension 05/08/2018 021 Overview: IOL tonight at 8 pm , normal first 08/01/2013 03/08/20 21 documented as of this encounter (statuses as of 03/02/2023) Immunizations Name Administration Dates Next Due COVID-19 mRNA, LNP-s, No Pre serve, 2-Dose Series (Bioformix) 05/01/2021,09/05/2020,08/15/2020 documented as of this encounter Social History Tobacco Use Types Packs/Day Years Used Date Smoking Tobacco: Never Smokeless Tobacco: Never Alcohol Use Standard Drinks/Week Comments No 0 (1 standard drink = 0.6 oz pur e alcohol) Estimated Date of Delivery Comme nts Yes 07/15/2023 Based on Ultraso und Sex Assigned at Date Recorded Not on file Job Start Date Occupation Industry Not on file Not on file Not on file documented as of this encounter Last Filed Vital Signs Vital Sign Reading Time Taken Comments Blood Pressure 108/70 03/02/2023 11:11 AM EDT Pulse - - Temperature - - Respiratory Rate - - Oxygen Saturation - - Inhaled Oxygen Concentration - - Weight 62 kg (136 lb 9.6 oz) 03/02/2023 11:11 AM EDT Height 157.5 cm (5' 2") 03/02/2023 11:11 AM EDT Body Mass Index 24.98 03/02/2023 11:11 AM EDT documented in this encounter Progress Notes * Mackenzie Domingo PA-C - 03/02/2023 11:27 AM EDT 20w5d Doing well, no concerns. Anatomy completed today, final report pending. + FHT by ultrasound Denies bleeding, leaking, contractions. + FM. Urine collected for baseline pr- cr: history of GHTN. RTC in 4 weeks Mackenzie Domingo PA-C * Kayce De La Cruz LPN - 03/02/2023 11:15 AM EDT 20w5d Pt denies any concerns. documented in this encounter Plan of Treatment Upcoming Encounters Date Type Specialty Care Team Description 04/01/2023 Office Visit Gynecology Obstetrics Gissel Schwab CRNP [address] [place] [address] 06/15/2023 Office Visit Family Medicine Deborah Peña DO [address] [place] [address] Health Maintenance Due Date Last Done Comments [...] , antepartum- Primary History of gestational hypertension documented in this encounter Care Teams Inbound Ingredient Logistics Specialist Relationship Specialty Start Date End Date Deborah Peña DO [address] [place] [address] PCP - General Family Medicine 06/12/22 documented as of this encounter
--- OUTSIDE RECORDS SUMMARY | 2023-07-18 11:26 | External Medical Summary ---
Author Name Unknown Address Unknown Organization [id number]:[facility] [place] [address] [facility] [address] Laboratory Report Ordering Provider Test Date Status DANIILYNNE 04/28/2023 10:03:38 Final Observation Date Value Abnormality Reference (Units ) Status SYNC LEUKOCYTES IN BLOOD BY AUTOMATED COUNT 04/28/2023 10:03:38 7.43 4.00-10.80 (K/uL) Final Segs 04/28/2023 10:03:38 70.9 40.0-75.0 (%) Final Lymphs % 04/28/2023 10:03:38 21.1 18.0-42.0 (%) Final Monos 04/28/2023 10:03:38 7.0 1.0-11.0 (%) Final Eosinophils 04/28/2023 10:03:38 0.3 0.0-6.0 (%) Final Basos 04/28/2023 10:03:38 0.4 0.0-2.0 (%) Final Immature Granulocyte, Percent 04/28/2023 10:03:38 0.3 0.0-2.0 (%) Final Absolute Segs 04/28/2023 10:03:38 5.27 1.80-7.70 (K/uL) Final Lymphs, absolute 04/28/2023 10:03:38 1.57 1.00-4.80 (K/ul) Final Monos, Abs 04/28/2023 10:03:38 0.52 0.00-1.10 (K/uL) Final Eos, Abs 04/28/2023 10:03:38 0.02 0.00-0.70 (K/uL) Final Basos, Abs 04/28/2023 10:03:38 0.03 0.00-0.20 (K/uL) Final Immature Granulocytes, Number 04/28/2023 10:03:38 0.02 0.00-0.20 (K/uL) Final Performing Location [facility] [place] [address] [facility] [address]
--- OUTSIDE RECORDS SUMMARY | 2023-07-18 11:26 | External Medical Summary ---
Author Name Unknown Address Unknown Organization [id number]:[facility] [place] - [address] [place] [address] Laboratory Report Ordering Provider Test Date Status LYNNE FOY 03/02/2023 12:47:57 Final Normal: <150 mg/ g creatinine
High: 150-500 mg/g creatinine
Very High: >500 mg/g creatinine
Nephrotic: >3000 mg/g creatinine Observation Date Value Abnormality Reference (Units) Status Protein, Urine 03/02/2023 12:47:57 <4 (mg/dL) Final Creatinine, Urine 03/02/2023 12:47:57 21 (mg/dL) Final PROTEIN/CREATININE RATIO, HIDE 03/02/2023 12:47:57 Uninterpretable Protein/Creatinine ratio due to very low protein and creatinine values. (mg/g) Final Performing Location LAB[facility]ORY [facility] [place] - [address] [place] [address]
--- OUTSIDE RECORDS SUMMARY | 2023-07-18 11:26 | External Medical Summary | Summary of Care ---
Author Name Unknown Organization [facility] Address [address] [place] [address] Phone [phone] Care Team Providers Care Photograph Tinter Name Role Phone Deborah Peña DO Primary Care Provider [phone] Encounter Details Date Type Department Care Team (Late st Contact Info) Description 05/05/2023 Orders Only Gynecology/Obstetrics [facility] [address] [place] [address] Gissel Schwab CRNP [address] [place] [facility] [place] [address] Iron deficiency anemia, unspecified iron deficiency anemia [...] mRNA, LNP-s, No Pre serve, 2-Dose Series (ClearLine Mobile) 05/01/2021,09/05/2020,08/15/2020 Seasonal Influenza, PF, 6 M [...] money to get more. Never true 04/28/2023 [place] Depression Scale Answer Date Recorded [place] Depression Scale Total 3 04/28/2023 The thought [...] Description 05/05/2023 4:00 PM EST Pharmacy Pharmacy, [place] [address] [place] [address] Clinic, Anemia [address] [place] [address] Iron deficiency anemia, unspecified iron deficiency anemia type* 05/12/2023 10:00 AM EST Pharmacy Pharmacy, [place] [address] [place] [address] Clinic, Anemia [address] [place] [address] 05/13/2023 1:30 PM EST [facility] [address] [facility] [place] [address] Gissel Schwab CRNP [address] [place] [address] 05/28/2023 10:15 AM EST [facility] [address] [place] [address] Gissel Schwab CRNP [address] [place] [address] 06/11/2023 9:15 AM EST Office Visit Gynecology/Obstetric s Timbo Glez [address] [place] [address] Bhavana Villegas CRNP [address] [place] [address] 06/26/2023 9:15 AM EST Office Visit Gynecology/Obstetric s Timbo Glez [address] [place] [address] Mackenzie Domingo PA-C [address] [place] [address] Health Maintenance Due Date Last Done Comments [...] anemia, unspecified iron deficiency anemia type- Primary Iron deficiency anemia, unspecified iron deficiency anemia type- Primary documented in this encounter Care Teams Photograph Tinter Relationship Specialty Start Date End Date Deborah Peña DO [address] [place] [address] PCP - General Family Medicine 06/12/22 documented as of this encounter
--- OUTSIDE RECORDS SUMMARY | 2023-07-18 11:26 | External Medical Summary ---
Author Name Unknown Address Unknown Organization K01:[facility]ORY [facility] [place] - [address] [facility] [address] Laboratory Report Ordering Provider Test Date Status LYNNE FOY 04/28/2023 10:03:38 Final Observation Date Value Abnormality Reference (Units ) Status Treponema pallidum Ab [Presence] in Serum by Immunoassay 04/28/2023 10:03:38 Nonreactive Nonreactive Final No serologic evidence of syp hilis. No additional testing clinicially indicated at this time. Consider repeat testing in 2-4 weeks if acute or primary syphilis is suspected. Performing Location LAB[facility]ORY [facility] [place] - [address] [place] [address]
--- OUTSIDE RECORDS SUMMARY | 2023-07-18 11:26 | External Medical Summary | Summary of Care ---
Author Name Unknown Organization [facility] Address [address] [place] [address] Phone [phone] Care Team Providers Care Svp Group Director Name Role Phone Deborah Peña DO Primary Care Provider [phone] Reason for Visit * Reason Comments Return Visit Encounter Details Date Type Department Care Team Description 03/02/2023 Office Visit Gynecology/Obstetrics Timbo Glez [address] [place] [address] Mackenzie Domingo PA-C [address] [place] [address] Supervision of other normal , antepartum*; History [...] mRNA, LNP-s, No Pre serve, 2-Dose Series (Drivy) 05/01/2021,09/05/2020,08/15/2020 documented as of this encounter Social [...] Gissel Schwab CRNP [address] [place] [address] 06/15/2023 Office Visit Family Medicine Deborah Peña DO [address] [place] [address] Health Maintenance Due Date Last Done Comments [...] hypertension documented in this encounter Care Teams Svp Group Director Relationship Specialty Start Date End Date Deborah Peña DO [address] [place] [address] PCP - General Family Medicine 06/12/22 documented as of this encounter
--- OUTSIDE RECORDS SUMMARY | 2023-07-18 11:26 | External Medical Summary ---
Author Name Unknown Address Unknown Organization K01:[facility] [place] [address] [place] [address] Laboratory Report Ordering Provider Test Date Status LYNNE FOY 04/28/2023 10:03:38 Final Observation Date Value Abnormality Reference (Units ) Status TSH 04/28/2023 10:03:38 1.37 0.27-4.20 (uIU/mL) Final Performing Location LABORATORY [facility] - [address] [place] [address]
--- OUTSIDE RECORDS SUMMARY | 2023-07-18 11:26 | External Medical Summary ---
Author Name Unknown Address Unknown Organization K01:LAB[facility]ORY [facility] [place] - [address] [place] [address] Laboratory Report Ordering Provider Test Date Status LYNNE FOY 04/28/2023 10:03:38 Final Observation Date Value Abnormality Reference (Units ) Status Vitamin B12 04/28/2023 10:03:38 [phone] (pg/mL) Final Performing Location LABORATORY [facility] - [address] [place] [address]
--- OUTSIDE RECORDS SUMMARY | 2023-07-18 11:26 | External Medical Summary | Summary of Care ---
Author Name Unknown Organization [facility] Address [address] [place] [address] Phone [phone] Care Team Providers Care Forestry Tree Pruner Name Role Phone Deborah Peña DO Primary Care Provider [phone] Reason for Visit * Reason Comments New Visit * Evaluate & Treat - Unlimited Visits (Within 30 days (routine)) - Authorized Specialty Diagnoses / Procedures Referred By Contignacio t Referred To Contact Obstetrics/Gynecology / Gynecology Obstetrics Diagnoses Pap smear for cervical cancer screening Deborah Peña DO [address] [place] [address] Referral ID Status Reason Start Date Expiration Date Visits Requested Visits Authorized [id number] Authorized Specialty Services Required 06/12/[phone] Encounter Details Date Type Department Care Team Description 01/28/2023 Office Visit Gynecology/Obstetrics [facility] [address] [place] [address] Gissel Schwab CRNP [address] [place] [address] Encounter for supervision of other normal in second trimester*; History of gestational hypertension Allergies No known active allergiesdocumented as of this encounter (statuses as of 01/28/2023) Medications Medication Sig Dispensed Refills Start Date End Date Status Formula 28-0.8-235 MG Oral Capsule Take by mouth. 0 Active Polyethylene Glycol 3350 17 GM Oral Packet (MiraLax) Take 1 Packet by mouth in the morning. 0 Active documented as of this encounter (statuses as of 01/28/2023) Active Problems Problem Noted Date Supervision of [...] as of this encounter (statuses as of 01/28/2023) Resolved Problems Problem Noted Date Resolved Date Gestational hypertension 05/08/2018 021 Overview: IOL tonight at 8 pm , normal first 08/01/2013 03/08/20 21 documented as of this encounter (statuses as of 01/28/2023) Immunizations Name Administration Dates Next Due COVID-19 mRNA, LNP-s, No Pre serve, 2-Dose Series (panOpen) 05/01/2021,09/05/2020,08/15/2020 documented as of this encounter Social [...] Sign Reading Time Taken Comments Blood Pressure 110/70 01/28/2023 10:28 AM EDT Pulse - - Temperature - - Respiratory Rate - - Oxygen Saturation - - Inhaled Oxygen Concentration - - Weight 60.7 kg (133 lb 12.8 oz) 023 10:28 AM EDT Height 157.5 cm (5' 2") 01/28/2023 10:2 8 AM EDT Body Mass Index 24.47 01/28/2023 10:28 AM EDT documented in this encounter Progress Notes * KELLY Hogan - 01/28/2023 11:37 AM EDT HPI: Pauline Phillips is a 32 year old year old female here for NOB visit. 16w0d . EDC 07/15/23. Early dating u/s confirming single viable IUP. Reviewed PMH, PSH, social hx, and family hx with pt. History of gestational HTN at term with last . Delivered at 40w3d. Discussed genetic screening tests with pt. She declines She is taking PNV. She is planning to breastfeed. Past Medical History: Diagnosis Date Gestational hypertension 05/08/2018 Past Surgical History: Procedure Laterality Date DENTAL SURGERY PROCEDURE NEC Dental Surgery Procedure Current outpatient prescriptions Current Outpatient Medications Medication Sig Dispense Refill Formula 28-0.8-235 MG Oral Capsule Take by mouth. Polyethylene Glycol 3350 17 GM Oral Packet (MiraLax) Take 1 Packet by mouth in the morning. No current facility-administered medications for this visit. Review of patient's allergies indicates: No Known Allergies Social History Social History Socioeconomic History Marital status: Spouse name: Not on file Number of children: 2 Years of education: Not on file Highest education level: Not on file Occupational History Not on file Tobacco Use Smoking status: Never Smokeless tobacco: Never Substance and Sexual Activity Alcohol use: No Drug use: No Sexual activity: Yes Partners: Male Other Topics Concern Not on file Social History Narrative Not on file Social Determinants of Health Financial Resource Strain: Not on file Food Insecurity: Not on file Transportation Needs: Not on file Physical Activity: Not on file Stress: Not on file Social Connections: Not on file Intimate Partner Violence: Not on file Housing Stability: Not on file Family History Family History Problem Relation Age of Onset Diabetes Grandmother (Maternal) Thyroid cancer Mother Hypertension Father No Past Hx Sister Obstetric History OB History Para Term AB Living 3 2 2 2 SAB IAB Ectopic Multiple Live Births 2 # Outcome Date GA Lbr Anthony/2nd Weight Sex Delivery Anes PTL Lv 3 Current 2 Term 05/08/18 40w3d / 00:22 3.495 kg (7 lb 11.3 oz) M Induction of EPI [place] 1 Term 03/12/14 39w5d 3.062 kg (6 lb 12 oz) F Vag-Spont EPI N [place] PHYSICAL EXAM: See physical IMPRESSION: Encounter for supervision of other normal in second trimester (Primary) - CULTURE, URINE, QUANTITATIVE - TYPE AND SCREEN; Future; Expected date: 01/29/2023 - RUBELLA IGG ANTIBODY - CHLAMYDIA TRACHOMATIS AND NEISSERIA GONORRHOEAE, AMPLIFIED PROBE - CBC WITH WBC DIFFERENTIAL AND ANEMIA REFLEX WORKUP - HEPATITIS C ANTIBODY SCREEN WITH PROGRESSION TO HEPATITIS C RNA QUANTITATIVE - SYPHILIS ANTIBODY SCREEN WITH REFLEX TO RPR - HEPATITIS B SURFACE ANTIGEN - HIV ANTIGEN & ANTIBODY SCREEN W/ CONFIRMATION - URINALYSIS, POINT OF CARE (ENTER/EDIT) History of gestational hypertension - BUN; Future; Expected date: 01/29/2023 - URIC ACID; Future; Expected date: 01/29/2023 - HEPATIC FUNCTION PANEL; Future; Expected date: 01/29/2023 - CREATININE; Future; Expected date: 01/29/2023 - PROTEIN/ CREATININE RATIO, URINE Follow Up: Return in about 4 weeks (around 02/25/2023) for stevie. | For: stevie | Check-out note: Anatomy u/s with next visit KELLY Hogan * Kayce De La Cruz LPN - 01/28/2023 10:49 AM EDT 16w0d Pt here for NOB, pt denies any concerns. documented in this encounter Plan of Treatment Upcoming Encounters Date Type Specialty Care Team Description 03/02/2023 Imaging Radiology 03/02/2023 Office Visit Gynecology Obstetrics Mackenzie Domingo PA-C [address] [place] [address] 06/15/2023 Office Visit Family Medicine Deborah Peña DO [address] [place] [address] Pending Results Name Type Priority Associated Diagnoses Date /Time CULTURE, URINE, QUANTITATIVE Lab Routine Encounter for supervision of other normal in second trimester 01/28/2023 12:00 PM EDT TYPE AND SCREEN Lab Routine Encounter for supervision of other normal in second trimester 01/28/2023 11:55 AM EDT RUBELLA IGG ANTIBODY Lab Routine Encounter for supervision of other normal in second trimester 01/28/2023 11:55 AM EDT CHLAMYDIA TRACHOMATIS AND NEISSERIA GONORRHOEAE, AMPLIFIED PROBE Lab Routine Encounter for supervision of other normal in second trimester 01/28/2023 12:00 PM EDT CBC WITH WBC DIFFERENTIAL AND ANEMIA REFLEX WORKUP Lab Routine Encounter for supervision of other normal in second trimester 01/28/2023 11:55 AM EDT HEPATITIS C ANTIBODY SCREEN WITH PROGRESSION TO HEPATITIS C RNA QUANTITATIVE Lab Routine Encounter for supervision of other normal in second trimester 01/28/2023 11:55 AM EDT SYPHILIS ANTIBODY SCREEN WITH REFLEX TO RPR Lab Routine Encounter for supervision of other normal in second trimester 01/28/2023 11:55 AM EDT HEPATITIS B SURFACE ANTIGEN Lab Routine Encounter for supervision of other normal in second trimester 01/28/2023 11:55 AM EDT HIV ANTIGEN & ANTIBODY SCREEN W/ CONFIRMATION Lab Routine Encounter for supervision of other normal in second trimester 01/28/2023 11:55 AM EDT URIC ACID Lab Routine History of gestational hypertension 01/28/2023 11:55 AM EDT ANEMIA CBC Lab Routine Encounter for supervision of other normal in second trimester 01/28/2023 11:55 AM EDT DIFFERENTIAL, AUTOMATED Lab Routine Encounter for supervision of other normal in second trimester 01/28/2023 11:55 AM EDT ANEMIA REFLEX CHEMISTRY HOLD Lab Routine Encounter for supervision of other normal in second trimester 01/28/2023 11:55 AM EDT HEPATITIS C ANTIBODY Lab Routine Encounter for supervision of other normal in second trimester 01/28/2023 11:55 AM EDT HEPATITIS C RNA ADD ON Lab Routine Encounter for supervision of other normal in second trimester 01/28/2023 11:55 AM EDT SYPHILIS ANTIBODY SCREEN Lab Routine Encounter for supervision of other normal in second trimester 01/28/2023 11:55 AM EDT Scheduled Orders Name Type Priority Associated Diagnoses Orde r Schedule TYPE AND SCREEN Lab Routine Encounter for supervision of other normal in second trimester Expected: 01/29/2023 (Approximate), Expires: 02/28/2024 URIC ACID Lab Routine History of gestational hypertension Expected: 01/29/2023 (Approximate), Expires: 01/29/2024 PROTEIN/ CREATININE RATIO, URINE Lab Routine History of gestational hypertension Ordered: 01/28/2023 US PREG SINGLE/1ST GEST, 14 WEEKS OR LATER Medical Imaging Routine Encounter for supervision of other normal in second trimester Expected: 02/27/2023, Expires: 02/28/2024 Health Maintenance Due Date Last Done Comments Hepatitis B (1 of 3 - 3-dose series) 1989 Depression Screening 2001 Hepatitis C Screening 10/26/2007 DTaP,Tdap,and Td Vaccines (1 - Tdap) 2008 HPV/Co-Test 10/26/2019 COVID-19 Vaccine (4 - Pfizer series) 06/26/2021 05/01/2021, 09/05/2020, 08/15/2020 Influenza Vaccine (FLU shot) [...] Not on filedocumented as of this encounter Procedures Procedure Name Priority Date/Time Associated Diagnosis Comments URINALYSIS, POINT OF CARE (ENTER/EDIT) Routine 01/28/2023 Encounter for supervision of other normal in second trimester documented in this encounter Results * CREATININE (01/28/2023 11:55 AM EDT) Creatinine 0.5 0.5 - 1.0 mg/dL 01/28/2023 1:07 PM EDT [facility] Estimated Glomerular Filtration Rate >90 >=60 mL/min 01/28/2023 1:07 PM EDT [facility] Comment:eGFR is calculated b ased on the CKD-EPI 2020 equation Blood Venous blood specimen / Unknown Venipuncture / Unknown 01/28/2023 11:55 AM EDT 01/28/2023 11:55 AM EDT Gissel MENDOZA LAB BLOOD ORDERABLES [facility] [address] [place] [address] * HEPATIC FUNCTION PANEL (01/28/2023 11:55 AM EDT) Albumin 4.6 3.8 - 5.0 g/dL 01/28/2023 1:07 PM EDT [facility] AST 16 10 - 35 U/L 01/28/2023 1:07 PM EDT [facility] Alkaline Phosphatase 60 35 - 130 U/L 01/28/2023 1:07 PM EDT [facility] ALT 14 10 - 35 U/L 01/28/2023 1:07 PM EDT [facility] Bilirubin, Total 0.2 <=1.2 mg/dL 01/28/2023 1:07 PM EDT [facility] Bilirubin, Direct <0.2 0.0 - 0.3 mg/dL 01/28/2023 1:07 PM EDT [facility] Protein 7.9 6.0 - 8.3 g/dL 01/28/2023 1:07 PM EDT [facility] Blood Venous blood specimen / Unknown Venipuncture / Unknown 01/28/2023 11:55 AM EDT 01/28/2023 11:55 AM EDT Gissel MENDOZA LAB BLOOD ORDERABLES [facility] [address] [place] [address] * BUN (01/28/2023 11:55 AM EDT) BUN 9 6 - 20 mg/dL 01/28/2023 1:07 PM EDT [facility] Blood Venous blood specimen / Unknown Venipuncture / Unknown 01/28/2023 11:55 AM EDT 01/28/2023 11:55 AM EDT Gissel MENDOZA LAB BLOOD ORDERABLES [facility] [address] [place] [address] * URINALYSIS, POINT OF CARE (ENTER/EDIT) (01/28/2023) Color, Urine Yellow Yellow or Light Yellow Clarity, Urine Clear Clear Glucose, Urine Negative Negative mg/dL Bilirubin, Urine Negative Negative Ketone, Urine Negative Negative mg/dL Specific [place], Urine 1.010 1.003 - 1.030 Blood, Urine Negative Negative pH, Urine 5.0 5.0 - 7.5 units Protein, Urine Negative Negative mg/dL Urobilinogen, Urine 0.2 0.2 - 1.0 mg/dL Nitrite, Urine Negative Negative Esterase, Urine Negative Negative Urine 01/28/2023 Gissel MENDOZA LAB POINT OF CARE TE ST ENTER/EDIT ORDERABLES documented in this encounter Visit Diagnoses Diagnosis Encounter for supervision of other normal in second trimester- Primary History of gestational hypertension documented in this encounter Care Teams Forestry Tree Pruner Relationship Specialty Start Date End Date Deborah Peña DO [address] [place] [address] PCP - General Family Medicine 06/12/22 documented as of this encounter
--- OUTSIDE RECORDS SUMMARY | 2023-07-18 11:26 | External Medical Summary | Summary of Care ---
Author Name Unknown Organization [facility] Address [address] [place] [address] Phone [phone] Care Team Providers Care Baked And Graphite Inspector Name Role Phone Deborah Peña DO Primary Care Provider [phone] Encounter Details Date Type Department Care Team (Late st Contact Info) Description 04/07/2023 Telephone Gynecology/Obstetrics [facility] [address] [place] [address] Jaden Santiago MD [address] [place] [address] Allergies No known active allergiesdocumented as of this encounter (statuses as of 04/16/2023) Medications Medication Sig Dispensed Refills Start Date End Date Status Formula 28-0.8-235 MG Oral Capsule Take by mouth. 0 Active Polyethylene Glycol 3350 17 GM Oral Packet Take 1 Packet by mouth in the morning. 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 [facility] referral placed. Last Assessment & Plan: [...] as of this encounter (statuses as of 04/16/2023) Resolved Problems Problem Noted Date Diagnosed Date Resolved Date Gestational hypertension 05/08/2018 Overview: IOL tonight at 8 pm , normal first 08/01/201302/16 documented as of this encounter (statuses as of 04/16/2023) Immunizations Name Administration Dates Next Due COVID-19 mRNA, LNP-s, No Pre serve, 2-Dose Series ([employer]) 05/01/2021,09/05/2020,08/15/2020 documented as of this encounter Social [...] encounter Miscellaneous Notes * Telephone Encounter - Renée Garcia LPN - 04/07/2023 9:28 AM EST Pt is currently 25w6d with an Estimated Date of Delivery: 07/15/23 - Patient called with c/o White cottage cheese discharge, burning. Started OTC Monistat, is on day 5 and still having some burning symptoms. Unsure on discharge vs Monistat discharge. Advised patient to complete 7 day treatment and then if no improvement 48 hours after completing she will let us knowand we will bring her in for a vaginal swab. Reviewed with Gissel in the office and she is in agreeable with plan of care. documented in this encounter Plan of Treatment Upcoming Encounters Date Type Department Care Team (Late st Contact Info) Description 04/28/2023 8:15 AM EST Office Visit Gynecology/Obstetrics [facility] [address] [place] [address] Gissel Schwab CRNP [address] [employer] [place] [address] 04/28/2023 9:10 AM EST Laboratory Laboratory, [facility] [address] [place] [address] [facility] [address] [place] [address] Health Maintenance Due Date Last Done Comments [...] filedocumented as of this encounter Care Teams Baked And Graphite Inspector Relationship Specialty Start Date End Date Deborah Peña DO [address] [place] [address] PCP - General Family Medicine 06/12/22 documented as of this encounter
--- OUTSIDE RECORDS SUMMARY | 2023-07-18 11:26 | External Medical Summary | Summary of Care ---
Author Name Unknown Organization [facility] Address [address] [place] [address] Phone [phone] Care Team Providers Care Tyre Builder Name Role Phone Deborah Peña DO Primary Care Provider [phone] Reason for Visit * Reason Onset Date Comments Appointment 05/05/2023 Encounter Details Date Type Department Care Team ([facility] st Contact Info) Description 05/05/2023 Telephone Hematology/Oncology [facility] [address] [place] [address] Gissel Schwab CRNP [address] [place] [address] Appointment Allergies No known active allergiesdocumented as of this encounter (statuses as of 05/07/2023) Medications Medication Sig Dispensed Refills Start Date End Date Status Formula 28-0.8-235 MG Oral Capsule Take by mouth. 0 Active Polyethylene Glycol 3350 17 GM Oral Packet Take 1 Packet by mouth in the morning. 0 Active Breast Pump Dispense double electric breast pump. Dx:Z39.1 1 Each 0 04/28/2023 Active documented as of this encounter (statuses as of 05/07/2023) Active Problems Problem Noted Date Diagnosed Date [...] as of this encounter (statuses as of 05/07/2023) Resolved Problems Problem Noted Date Diagnosed Date Resolved Date Gestational hypertension 05/08/2018 Overview: IOL tonight at 8 pm , normal first 08/01/201302/16 documented as of this encounter (statuses as of 05/07/2023) Immunizations Name Administration Dates Next Due COVID-19 mRNA, LNP-s, No Pre serve, 2-Dose Series ([employer]) 05/01/2021,09/05/2020,08/15/2020 Seasonal Influenza, PF, 6 M & [...] money to get more. Never true 04/28/2023 [place] Depression Scale Answer Date Recorded [place] Depression Scale Total 3 04/28/2023 The thought [...] encounter Miscellaneous Notes * Telephone Encounter - Ewa Cornelius OSA - 05/07/2023 8:59 AM EST Spoke to patient, schedule infusion 05/21/23 @ 9:00 am * Telephone Encounter - Scooter Crocker RN - 05/06/2023 4:01 PM EST [place] plan signed. Scheduling- Please call patient to schedule 2 hour appointment "Venofer 05/20" (KELLY Dempsey). Patient will need weekly infusion x 3. Thank you. * Telephone Encounter - Scooter Crocker RN - 05/05/2023 12:21 PM EST [place] plan entered and sent to [facility] as requested. Will await signature. IV Venofer doesn't require authorization. documented in this encounter Plan of Treatment Upcoming Encounters Date Type Department Care Team (Late st Contact Info) Description 05/13/2023 1:30 PM EST Office Visit Gynecology/Obstetrics [address] [place] [address] Gissel Schwab CRNP [address] [place] [address] 05/20/2023 10:00 AM EST Pharmacy Pharmacy, [place] [address] [place] [address] Clinic, [facility] [address] [place] [facility] [place] [address] 05/21/2023 9:00 AM EST Hem/Onc Treatment Hematology/Oncology Treatment, [place] [address] [place] [address] Mikala, Chair [address] [place] [address] 05/28/2023 10:15 AM EST Office Visit Gynecology/Obstetrics [facility] [address] [place] [address] Gissel Schwab CRNP [address] [place] [address] 06/11/2023 9:15 AM EST Office Visit Gynecology/Obstetrics [facility] [address] [place] [address] Bhavana Villegas CRNP [address] [place] [address] 06/26/2023 9:15 AM EST Office Visit Gynecology/Obstetrics [facility] [address] [place] [address] Mackenzie Domingo PA-C [address] [place] [address] Health Maintenance Due Date Last Done Comments [...] filedocumented as of this encounter Care Teams Tyre Builder Relationship Specialty Start Date End Date Deborah Peña DO [address] [place] [address] PCP - General Family Medicine 06/12/22 documented as of this encounter
--- OUTSIDE RECORDS SUMMARY | 2023-07-18 11:26 | External Medical Summary | Summary of Care ---
Author Name Unknown Organization [facility] Address [address] [place] [address] Phone [phone] Care Team Providers Care Biological Aide Name Role Phone Deborah Peña DO Primary Care Provider [phone] Reason for Visit * Reason Comments Outpatient Testing Encounter Details Date Type Department Care Team (Late st Contact Info) Description 04/28/2023 9:10 AM EST Laboratory Laboratory, [facility] [address] [place] [phone] [facility] [address] [place] [address] Supervision of other normal , antepartum Allergies No known active allergiesdocumented as of [...] mRNA, LNP-s, No Pre serve, 2-Dose Series ([employer]) 05/01/2021,09/05/2020,08/15/2020 Seasonal Influenza, PF, 6 M & [...] the money to buy more. Never true 12/12/20 23 Within the past 12 months, t he food you bought just didn't last and you didn't have money to get more. Never true 04/28/2023 [place] Depression Scale Answer Date Recorded [place] Depression Scale Total 3 04/28/2023 The thought [...] 05/28/2023 10:15 AM EST Office Visit Gynecology/Obstetrics [facility] [address] [place] [address] Gissel Schwab CRNP [address] [place] [address] 06/11/2023 9:15 AM EST Office Visit Gynecology/Obstetrics [facility] [address] [place] [address] Bhavana Villegas CRNP [address] [place] [address] 06/26/2023 9:15 AM EST Office Visit Gynecology/Obstetrics [facility] [address] [place] [address] Mackenzie Domingo PA-C [address] [place] [address] Pending Results Name Type Priority Associated Diagnoses Date /Time SYPHILIS ANTIBODY SCREEN WITH REFLEX TO RPR Lab Routine Supervision of other normal , antepartum 04/28/2023 10:03 AM EST CBC WITH WBC DIFFERENTIAL AND ANEMIA REFLEX WORKUP Lab Routine Supervision of other normal , antepartum 04/28/2023 10:03 AM EST 50-G GESTATIONAL GLUCOSE, 1 HOUR Lab Routine Supervision of other normal , antepartum 04/28/2023 10:03 AM EST SYPHILIS ANTIBODY SCREEN Lab Routine Supervision of other normal , antepartum 04/28/2023 10:03 AM EST ANEMIA CBC Lab Routine Supervision of other normal , antepartum 04/28/2023 10:03 AM EST DIFFERENTIAL, AUTOMATED Lab Routine Supervision of other normal , antepartum 04/28/2023 10:03 AM EST ANEMIA REFLEX CHEMISTRY HOLD Lab Routine Supervision of other normal , antepartum 04/28/2023 10:03 AM EST Health Maintenance Due Date Last Done Comments [...] Diagnoses Diagnosis Supervision of other normal , antepartum documented in this encounter Care Teams Biological Aide Relationship Specialty Start Date End Date Deborah Peña DO [address] [place] [address] PCP - General Family Medicine 06/12/22 documented as of this encounter
--- OUTSIDE RECORDS SUMMARY | 2023-07-18 11:26 | External Medical Summary | Summary of Care ---
Author Name Unknown Organization [facility] Address [address] [place] [address] Phone [phone] Care Team Providers Care Automation Technologist Name Role Phone Deborah Peña DO Primary Care Provider [phone] Encounter Details Date Type Department Care Team (Late st Contact Info) Description 05/05/2023 Orders Only Hematology/Oncology [facility] [address] [place] [address] Gissel Schwab CRNP [address] [place] [address] Allergies No known active allergiesdocumented as of [...] mRNA, LNP-s, No Pre serve, 2-Dose Series ([employer]) 05/01/2021,09/05/2020,08/15/2020 Seasonal Influenza, PF, 6 M & [...] money to get more. Never true 04/28/2023 [place] Depression Scale Answer Date Recorded [place] Depression Scale Total 3 04/28/2023 The thought [...] Description 05/05/2023 4:00 PM EST Pharmacy Pharmacy, [place] [address] [place] [address] Clinic, [place] [address] [place] [address] Iron deficiency anemia, unspecified iron deficiency anemia type* 05/12/2023 10:00 AM EST Pharmacy Pharmacy, [place] [address] [place] [address] Clinic, [place] [address] [place] [address] 05/13/2023 1:30 PM EST Office Visit Gynecology/Obstetric s [facility] [address] [facility] [place] [address] Gissel Schwab CRNP [address] [place] [address] 05/28/2023 10:15 AM EST Office Visit Gynecology/Obstetric s [facility] [address] [place] [address] Gissel Schwab CRNP [address] [place] [address] 06/11/2023 9:15 AM EST Office Visit Gynecology/Obstetric s [facility] [address] [place] [address] Bhavana Villegas CRNP [address] [place] [address] 06/26/2023 9:15 AM EST Office Visit Gynecology/Obstetric s [facility] [address] [place] [address] Mackenzie Domingo PA-C [address] [place] [address] Health Maintenance Due Date Last Done Comments [...] filedocumented as of this encounter Care Teams Automation Technologist Relationship Specialty Start Date End Date Deborah Peña DO [address] [place] [address] PCP - General Family Medicine 06/12/22 documented as of this encounter
--- OUTSIDE RECORDS SUMMARY | 2023-07-18 11:26 | External Medical Summary | Summary of Care ---
Author Name Unknown Organization [facility] Address [address] [place] [address] Phone [phone] Care Team Providers Care Gis Database Administrator Name Role Phone Deborah Peña DO Primary Care Provider [phone] Reason for Referral * Evaluate & Treat - Unlimited Visits (Within 10 days (routine)) - Authorized Specialty Diagnoses / Procedures Referred By Contignacio t Referred To Contact Obstetrics/Gynecology / Maternal Medicine Diagnoses Abnormal findings on screening Gissel Schwab CRNP [address] [place] [address] Referral ID Status Reason Start Date Expiration Date Visits Requested Visits Authorized [id number] Authorized Specialty Services Required 3 [phone] Question Answer Referral Priority Within 10 days (routine) Has the patient had a viability scan? Yes Date performed 01/28/2023 Location performed Radiology Reason for referral Abnormal ultrasound findings Please provide additional details BPD, HC <5th percentile, femur length 6th percentile Where should this appointment be scheduled? Dm[facility] Comments /Para: LMP: Patient's last menstrual period was 10/19/2022. Patient is . SILVIA: 07/15/2023, by Ultrasound Pre-Gravid BMI: 23.04 Reason for Visit * Reason Onset Date Comments Abnormal Test Results 03/04/2023 Encounter Details Date Type Department Care Team ([facility] Contact Info) Description 03/04/2023 Telephone Gynecology/Obstetrics [facility] [address] [place] [address] Gissel Schwab CRNP [address] [place] [address] Abnormal Test Results Allergies No known active allergiesdocumented as of this encounter (statuses as of 04/13/2023) Medications Medication Sig Dispensed Refills Start Date End Date Status Formula 28-0.8-235 MG Oral Capsule Take by mouth. 0 Active Polyethylene Glycol 3350 17 GM Oral Packet Take 1 Packet by mouth in the morning. 0 Active documented as of this encounter (statuses as of 04/13/2023) Active Problems Problem Noted Date Diagnosed Date [...] as of this encounter (statuses as of 04/13/2023) Resolved Problems Problem Noted Date Diagnosed Date Resolved Date Gestational hypertension 05/08/2018 Overview: IOL tonight at 8 pm , normal first 08/01/201302/16 documented as of this encounter (statuses as of 04/13/2023) Immunizations Name Administration Dates Next Due COVID-19 mRNA, LNP-s, No Pre serve, 2-Dose Series ([employer]) 05/01/2021,09/05/2020,08/15/2020 documented as of this encounter Social [...] encounter Miscellaneous Notes * Telephone Encounter - Estela Elena LPN - 03/04/2023 10:23 AM EDT Spoke to pt- verified and reviewed message below. Pt verbalized understanding and in agreement for MFM referral. * Telephone Encounter - Gissel Schwab CRNP - 03/04/2023 10:05 AM EDT Please notify pt that her anatomy u/s shows that the baby's head is on the small side, and femur length is a bit short. This could be normal variation of , but I would recommend seeing MFM to ensure all is OK. If agreeable, please route back and I'll place referral. documented in this encounter Plan of Treatment Upcoming Encounters Date Type Department Care Team (Late st Contact Info) Description 04/28/2023 8:15 AM EST Office Visit Gynecology/Obstetrics [facility] [address] [place] [address] Gissel Schwab CRNP [address] [place] [address] 04/28/2023 9:10 AM EST Laboratory Laboratory, [facility] [address] [facility] [place] [phone] [facility] [address] [place] [address] Scheduled Referrals Name Type Priority Associated Diagnoses Orde r Schedule MATERNAL MEDICINE REFERRAL OP Referral Within 10 days (routine) Abnormal findings on screening Ordered: 03/04/2023 Health Maintenance Due Date Last Done Comments [...] Not on filedocumented as of this encounter Results * MFM US MATERNAL 1ST FETUS (03/09/2023 2:44 PM EDT) Anatomical Region Laterality Modality Abdomen, Pelvis, Ultrasoun d Narrative 03/09/2023 4:24 PM EDT For a complete ultrasound report, please refer to the document that was scanned into the New Media section of today's office visit. Gissel MENDOZA RAD ULTRASOUND documented in this encounter Visit Diagnoses Diagnosis Abnormal findings on screening- Primary Abnormal findings on screening documented in this encounter Care Teams Gis Database Administrator Relationship Specialty Start Date End Date Deborah Peña DO [address] [place] [address] PCP - General Family Medicine 06/12/22 documented as of this encounter
--- OUTSIDE RECORDS SUMMARY | 2023-07-18 11:26 | External Medical Summary | Summary of Care ---
Author Name Unknown Organization [facility] Address [address] [place] [address] Phone [phone] Care Team Providers Care Stave Machine Tender Name Role Phone Deborah Peña DO Primary Care Provider [phone] Reason for Visit * Evaluate & Treat - Unlimited Visits (Within 10 days (routine)) - Authorized Specialty Diagnoses / Procedures Referred By Contac t Referred To Contact Obstetrics/Gynecology / Maternal Medicine Diagnoses Abnormal findings on screening Gissel Schwab CRNP [address] [place] [address] Referral ID Status Reason Start Date Expiration Date Visits Requested Visits Authorized [id number] Authorized Specialty Services Required [phone] Encounter Details Date Type Department Care Team ([facility] Contact Info) Description 03/09/2023 1:30 PM EDT Office Visit Radio Adjuster Obstetrics Maternal Medicine, [place] [address] [place] [address] Aneesh Garrido MD [address] [place], [place] [id number] Abnormal findings on screening* Allergies No known [...] HC, 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 [facility] referral placed. Last Assessment & Plan: [...] mRNA, LNP-s, No Pre serve, 2-Dose Series ([employer]) 05/01/2021,09/05/2020,08/15/2020 documented as of this encounter Social [...] Phillips is at 21w5d who presents to [facility] for an ultrasound and follow-up of [...] Phillips was instructed to notify her primary fly frame tender if she felt regular contractions (approximately every [...] 04/01/2023 9:30 AM EST Office Visit Gynecology/Obstetrics [facility] [address] [place] [address] Gissel Schwab CRNP [address] [place] [address] 06/15/2023 9:40 AM EST Office Visit Family Practice [facility] [address] [place] [address] Deborah Peña DO [address] [place] [address] Scheduled Orders Name Type Priority Associated Diagnoses [...] Primary documented in this encounter Care Teams Stave Machine Tender Relationship Specialty Start Date End Date Deborah Peña DO [address] [place] [address] PCP - General Family Medicine 06/12/22 documented as of this encounter
--- OUTSIDE RECORDS SUMMARY | 2023-07-18 11:26 | External Medical Summary | Summary of Care ---
Author Name Unknown Organization [facility] Address [address] [place] [address] Phone [phone] Care Team Providers Care Petroleum Products Sales Representative Name Role Phone Deborah Peña DO Primary Care Provider [phone] Reason for Visit * Reason Onset Date Comments Appointment 05/05/2023 Encounter Details Date Type Department Care Team ([facility] st Contact Info) Description 05/05/2023 Telephone Hematology/Oncology [facility] [address] [place] [address] Gissel Schwab CRNP [address] [place] [address] Appointment Allergies No known active allergiesdocumented as of this encounter (statuses as of 05/08/2023) Medications Medication Sig Dispensed Refills Start Date End Date Status Formula 28-0.8-235 MG Oral Capsule Take by mouth. 0 Active Polyethylene Glycol 3350 17 GM Oral Packet Take 1 Packet by mouth in the morning. 0 Active Breast Pump Dispense double electric breast pump. Dx:Z39.1 1 Each 0 04/28/2023 Active documented as of this encounter (statuses as of 05/08/2023) Active Problems Problem Noted Date Diagnosed Date [...] as of this encounter (statuses as of 05/08/2023) Resolved Problems Problem Noted Date Diagnosed Date Resolved Date Gestational hypertension 05/08/2018 Overview: IOL tonight at 8 pm , normal first 08/01/201302/16 documented as of this encounter (statuses as of 05/08/2023) Immunizations Name Administration Dates Next Due COVID-19 mRNA, LNP-s, No Pre serve, 2-Dose Series ([employer]) 05/01/2021,09/05/2020,08/15/2020 Seasonal Influenza, PF, 6 M & [...] money to get more. Never true 04/28/2023 [place] Depression Scale Answer Date Recorded [place] Depression Scale Total 3 04/28/2023 The thought [...] Telephone Encounter - Scooter Crocker RN - 05/08/2023 9:06 AM EST [place] plan updated. * Telephone Encounter - Ewa Cornelius OSA - 05/07/2023 8:59 AM EST Spoke to patient, schedule infusion 05/21/23 @ 9:00 am * Telephone Encounter - Scooter Crocker RN - 05/06/2023 4:01 PM EST [place] plan signed. Scheduling- Please call patient to schedule 2 hour appointment "Venofer 05/20" (KELLY Dempsey). Patient will need weekly infusion x 3. Thank you. * Telephone Encounter - Scooter Crocker RN - 05/05/2023 12:21 PM EST [place] plan entered and sent to [facility] as requested. Will await signature. IV Venofer doesn't require authorization. documented in this encounter Plan of Treatment Upcoming Encounters Date Type Department Care Team (Late st Contact Info) Description 05/13/2023 1:30 PM EST Office Visit Gynecology/Obstetrics [facility] [address] [place] [address] Gissel Schwab CRNP [address] [place] [address] 05/20/2023 10:00 AM EST Pharmacy Pharmacy, [place] [address] [place] [address] Clinic, Anemia [address] [place], [place] [address] 05/28/2023 10:15 AM EST Office Visit Gynecology/Obstetrics [facility] [address] [place] [address] Gissel Schwab CRNP [address] [place] [address] 05/29/2023 1:15 PM EST Hem/Onc Treatment Hematology/Oncology Treatment, [address] [address] Mikala, Chair [address] [place] [address] 06/11/2023 9:15 AM EST Office Visit Gynecology/Obstetrics [facility] [address] [place] [address] Bhavana Villegas CRNP [address] [place] [address] 06/26/2023 9:15 AM EST Office Visit Gynecology/Obstetrics [facility] [address] [place] [address] Mackenzie Domingo PA-C [address] [place] [address] Health Maintenance Due Date Last Done Comments [...] filedocumented as of this encounter Care Teams Petroleum Products Sales Representative Relationship Specialty Start Date End Date Deborah Peña DO [address] [place] [address] PCP - General Family Medicine 06/12/22 documented as of this encounter
--- OUTSIDE RECORDS SUMMARY | 2023-07-18 11:27 | External Medical Summary ---
Author Name Unknown Address Unknown Organization K01:[facility] - [address] [facility] [address] Laboratory Report Ordering Provider Test Date Status LYNNE FOY 01/28/2023 11:55:05 Final Observation Date Value Abnormality Reference (Units ) Status Treponema pallidum Ab [Presence] in Serum by Immunoassay 01/28/2023 11:55:05 Nonreactive Nonreactive Final No serologic evidence of syp hilis. No additional testing clinicially indicated at this time. Consider repeat testing in 2-4 weeks if acute or primary syphilis is suspected. Performing Location [facility] - [address] [place] [id number]
--- OUTSIDE RECORDS SUMMARY | 2023-07-18 11:27 | External Medical Summary ---
Author Name Unknown Address Unknown Organization [id number]:LABORATORY [facility] [place] - [address] [place] [id number] Laboratory Report Ordering Provider Test Date Status LYNNE FOY 01/28/2023 12:00:47 Final Observation Date Value Abnormality Reference (Units) Status Bacteria identified in Specimen by Culture 01/28/2023 12:00:47 No significant growth Final Test: Culture, Urine, Quant itative
Specimen Source: Urine, Clean Catch
Specimen Type: Urine
Specimen Date: 01/28/2023 12:00 PM
Result Date: 01/29/2023 1:32 PM
Result Status: Final result
Resulting Lab: [facility]ORY [facility] [place]
[address]
[facility] [address]

CULTURE

No significant growth

null Performing Location LABORATORY [facility] [place] - [address] [facility] [address]
--- OUTSIDE RECORDS SUMMARY | 2023-07-18 11:27 | External Medical Summary ---
Author Name Unknown Address Unknown Organization [id number]:LABORATORY [place] [address] - [address] [place] [address] Laboratory Report Ordering Provider Test Date Status LYNNE FOY 01/28/2023 11:55:05 Final Observation Date Value Abnormality Reference (Units ) Status Albumin 01/28/2023 11:55:05 4.6 3.8-5.0 (g/dL) Final AST (Aspartate aminotransferase) 01/28/2023 11:55:05 16 10-35 (U/L) Final Alk Phos 01/28/2023 11:55:05 60 35-130 (U/L) Final ALT (Alanine aminotransferase) 01/28/2023 11:55:05 14 10-35 (U/L) Final Bilirubin, Total 01/28/2023 11:55:05 0.2 <=1.2 (mg/dL) Final Bilirubin, Direct 01/28/2023 11:55:05 <0.2 0.0-0.3 (mg/dL) Final Protein 01/28/2023 11:55:05 7.9 6.0-8.3 (g/dL) Final Performing Location LABORATORY [place] [facility] 0 - [address] [place] [address]
--- OUTSIDE RECORDS SUMMARY | 2023-07-18 11:27 | External Medical Summary | Summary of Care ---
Author Name Unknown Organization [facility] Address [address] [place] [address] Phone [phone] Care Team Providers Care Sales Operations Name Role Phone Deborah Peña DO Primary Care Provider [phone] Reason for Visit * Reason Comments Nurse Documentation * Evaluate & Treat - Unlimited Visits (Within 30 days (routine)) - Authorized Specialty Diagnoses / Procedures Referred By Contignacio t Referred To Contact Obstetrics/Gynecology / Gynecology Obstetrics Diagnoses Pap smear for cervical cancer screening Deborah Peña DO [address] [place] [address] Referral ID Status Reason Start Date Expiration Date Visits Requested Visits Authorized [id number] Authorized Specialty Services Required 06/12/[phone] Encounter Details Date Type Department Care Team Description 01/22/2023 Nurse Only Gynecology/Obstetrics [facility] [address] [place] [address] , Nurse Screen Printing Supervisor [facility] [address] [place] [address] Nurse Documentation Allergies No known active allergiesdocumented as of this encounter (statuses as of 01/22/2023) Medications Medication Sig Dispensed Refills Start Date End Date Status Formula 28-0.8-235 MG Oral Capsule Take by mouth. 0 Active Norethin Nick-Eth Estrad-FE 1.5-30 MG-MCG Oral TabletIndications:En counter for surveillance of contraceptive pills TAKE ONE TABLET BY MOUTH EVERY DAY 84 Tablet 1 04/18/2022 01/22/2023 Discontinued (Medication List Clean Up) documented as of this encounter (statuses as of 01/22/2023) Active Problems Problem Noted Date Family history of congenital heart defec t 08/01/2013 Overview: Pt's sister born with "hole in heart," No surgical intervention required; Will get more exact diagnosis for upcoming visits Comments Yes documented as of this encounter (statuses as of 01/22/2023) Resolved Problems Problem Noted Date Resolved Date Gestational hypertension 05/08/2018 021 Overview: IOL tonight at 8 pm , normal first 08/01/2013 03/08/20 21 documented as of this encounter (statuses as of 01/22/2023) Immunizations Name Administration Dates Next Due COVID-19 mRNA, LNP-s, No Pre serve, 2-Dose Series ([employer]) 05/01/2021,09/05/2020,08/15/2020 documented as of this encounter Social History Tobacco Use Types Packs/Day Years Used Date Smoking Tobacco: Never Smokeless Tobacco: Never Alcohol Use Standard Drinks/Week Comments No 0 (1 standard drink = 0.6 oz pur e alcohol) Comments Yes Sex Assigned at Date Recorded Not on file Job Start Date Occupation Industry Not on file Not on file Not on file documented as of this encounter Progress Notes * Krystal Mayberry LPN - 01/22/2023 1:06 PM EDT Patient here for initial ob visit. No transferred records. Are you planning a home delivery?No Pt advised , If at anytime during your you decide to pursue a home , please notify our office. Patient oriented to the Women's Health department and current providers in the practice.We discuss the the options of delivery, [facility] vs [facility] with midwives. Reviewed frequency of visits. Reviewed outreach clinics and how to contact providers during regularoffice hours and after office hours. Educational packet reviewed. [employer] is a way you can talk to your provider online through e-mail. Would you like to sign up, I can activate it for you. ALREADY ACTIVE Patient advised not to use [facility] for urgent related problems. Does the patient have an advance directive? No, Advance Directive brochure offered, patient declined. Krystal Mayberry LPN documented in this encounter Plan of Treatment Upcoming Encounters Date Type Specialty Care Team Description 01/28/2023 Imaging Radiology 01/28/2023 Office Visit Gynecology Obstetrics Gissel Schwab CRNP [address] [place] [address] 06/15/2023 Office Visit Family Medicine Deborah Peña DO [address] [place] [address] Health Maintenance Due Date Last Done Comments Hepatitis B (1 of 3 - 3-dose series) 1989 Depression Screening, Annual for Pts 12 and Over 2001 Hepatitis C Screening 10/26/2007 DTaP,Tdap,and Td [...] as of this encounter Visit Diagnoses Diagnosis Early stage of - Primary documented in this encounter Care Teams Sales Operations Relationship Specialty Start Date End Date Deborah Peña DO [address] [place] [address] PCP - General Family Medicine 06/12/22 documented as of this encounter
--- OUTSIDE RECORDS SUMMARY | 2023-07-18 11:27 | External Medical Summary | Summary of Care ---
Author Name Unknown Organization [facility] Address [address] [place] [address] Phone [phone] Care Team Providers Care Forming Machine Adjuster Name Role Phone Deborah Peña DO Primary Care Provider [phone] Reason for Visit * Reason Comments New Visit * Evaluate & Treat - Unlimited Visits (Within 30 days (routine)) - Authorized Specialty Diagnoses / Procedures Referred By Contignacio t Referred To Contact Obstetrics/Gynecology / Gynecology Obstetrics Diagnoses Pap smear for cervical cancer screening Deborah Peña DO [address] [place] [address] Referral ID Status Reason Start Date Expiration Date Visits Requested Visits Authorized [id number] Authorized Specialty Services Required 06/12/[phone] Encounter Details Date Type Department Care Team Description 01/28/2023 Office Visit Gynecology/Obstetrics [facility] [address] [place] [address] Gissel Schwab CRNP [address] [place] [address] Encounter for supervision of other normal in [...] mRNA, LNP-s, No Pre serve, 2-Dose Series ([employer]) 05/01/2021,09/05/2020,08/15/2020 documented as of this encounter Social [...] Domingo PA-C [address] [place] [address] 06/15/2023 Office Visit Family Medicine Deborah Peña DO [address] [place] [address] Pending Results Name Type Priority Associated Diagnoses [...] in second trimester 01/28/2023 11:55 AM EDT BUN Lab Routine History of gestational hypertension 01/28/2023 11:55 AM EDT URIC ACID Lab Routine History of gestational hypertension 01/28/2023 11:55 AM EDT HEPATIC FUNCTION PANEL Lab Routine History of gestational hypertension 01/28/2023 11:55 AM EDT CREATININE Lab Routine History of gestational hypertension 01/28/2023 [...] second trimester Expected: 01/29/2023 (Approximate), Expires: 02/28/2024 URINALYSIS, POINT OF CARE (ENTER/EDIT) Point of Care Testing Routine Encounter for supervision of other normal in second trimester Ordered: 01/28/2023 BUN Lab Routine History of gestational hypertension Expected: 01/29/2023 (Approximate), Expires: 01/29/2024 URIC ACID Lab Routine History of gestational hypertension Expected: 01/29/2023 (Approximate), Expires: 01/29/2024 HEPATIC FUNCTION PANEL Lab Routine History of gestational hypertension Expected: 01/29/2023 (Approximate), Expires: 01/29/2024 CREATININE Lab Routine History of gestational hypertension Expected: [...] as of this encounter Visit Diagnoses Diagnosis Encounter for supervision of other normal in second trimester- Primary History of gestational hypertension documented in this encounter Care Teams Forming Machine Adjuster Relationship Specialty Start Date End Date Deborah Peña, [address] [place] [address] PCP - General Family Medicine 06/12/22 documented as of this encounter
--- OUTSIDE RECORDS SUMMARY | 2023-07-18 11:27 | External Medical Summary ---
Author Name Unknown Address Unknown Organization [id number]:[facility]ATORY [facility] [place] - [address] [place] [address] Laboratory Report Ordering Provider Test Date Status LIONEL FOYSIXTO 01/28/2023 12:00:47 Final Observation Date Value Abnormality Reference (Units ) Status Chlamydia trachomatis rRNA [Presence] in Specimen by WENDI with probe detection 01/28/2023 12:00:47 Negative Negative Final No Chlamydia trachomatis det ected by provider service representative-mediated nucleic acid amplification. Neisseria gonorrhoeae rRNA [ Presence] in Specimen by WENDI with probe detection 01/28/2023 12:00:47 Negative Negative Final No Neisseria gonorrhoeae det ected by provider service representative-mediated nucleic acid amplification. Performing Location LABORATORY [facility] [place] - [address] [place] [address]
--- OUTSIDE RECORDS SUMMARY | 2023-07-18 11:27 | External Medical Summary ---
Author Name Unknown Address Unknown Organization [id number]:[facility]ATORY [facility] [place] [facility] - [address] [place] [address] Laboratory Report Ordering Provider Test Date Status LYNNE FOY 01/28/2023 11:55:05 Final Observation Date Value Abnormality Reference (Units ) Status ABO 01/28/2023 11:55:05 A Final RH 01/28/2023 11:55:05 Positive Final RED BLOOD CELL ANTIBODY SCREEN 01/28/2023 11:55:05 Negative Final SPECIMEN EXPIRATION DATE 01/28/2023 11:55:05 01/31/2023 23:59 Final Performing Location [facility]ATORY [facility] [place] [facility] - [address] [place] [address]
--- OUTSIDE RECORDS SUMMARY | 2023-07-18 11:27 | External Medical Summary | Summary of Care ---
Author Name Unknown Organization [facility] Address [address] [place] [address] Phone [phone] Care Team Providers Care Head Of Talent Management Name Role Phone Deborah Peña DO Primary Care Provider [phone] Reason for Visit * Reason Comments New Visit * Evaluate & Treat - Unlimited Visits (Within 30 days (routine)) - Authorized Specialty Diagnoses / Procedures Referred By Contignacio t Referred To Contact Obstetrics/Gynecology / Gynecology Obstetrics Diagnoses Pap smear for cervical cancer screening Deborah Peña DO [address] [place] [address] Referral ID Status Reason Start Date Expiration Date Visits Requested Visits Authorized [id number] Authorized Specialty Services Required 06/12/[phone] Encounter Details Date Type Department Care Team Description 01/28/2023 Office Visit Gynecology/Obstetrics [facility] [address] [place] [address] Gissel Schwab CRNP [address] [place] [address] Encounter for supervision of other normal in [...] mRNA, LNP-s, No Pre serve, 2-Dose Series ([employer]) 05/01/2021,09/05/2020,08/15/2020 documented as of this encounter Social [...] Domingo PA-C [address] [place] [address] 06/15/2023 Office Visit Family Medicine Deborah Peña DO [address] [place] [address] Pending Results Name Type Priority Associated Diagnoses Date /Time TYPE AND SCREEN Lab Routine Encounter for supervision of other normal in second trimester 01/28/2023 11:55 AM EDT RUBELLA IGG ANTIBODY Lab Routine Encounter for supervision of other normal in second trimester 01/28/2023 11:55 AM EDT CBC WITH WBC DIFFERENTIAL AND ANEMIA [...] Type Priority Associated Diagnoses Orde r Schedule CULTURE, URINE, QUANTITATIVE Lab Routine Encounter for supervision of other normal in second trimester Ordered: 01/28/2023 TYPE AND SCREEN Lab Routine Encounter for supervision of other normal in second trimester Expected: 01/29/2023 (Approximate), Expires: 02/28/2024 CHLAMYDIA TRACHOMATIS AND NEISSERIA GONORRHOEAE, AMPLIFIED PROBE Lab Routine Encounter for supervision of other normal in second trimester Ordered: 01/28/2023 URINALYSIS, POINT OF CARE (ENTER/EDIT) Point of [...] hypertension documented in this encounter Care Teams Head Of Talent Management Relationship Specialty Start Date End Date Deborah Peña, DO [address] [place] [address] PCP - General Family Medicine 06/12/22 documented as of this encounter
--- OUTSIDE RECORDS SUMMARY | 2023-07-18 11:27 | External Medical Summary ---
Author Name Unknown Address Unknown Organization [id number][facility] [address] [place] [address] Laboratory Report Ordering Provider Test Date Status LYNNE FOY 01/28/2023 11:55:05 Final Observation Date Value Abnormality Reference (Units ) Status BUN 01/28/2023 11:55:05 9 6-20 (mg/d L) Final Performing Location [facility] - [address] [place] [address]
--- OUTSIDE RECORDS SUMMARY | 2023-07-18 11:27 | External Medical Summary ---
Author Name Unknown Address Unknown Organization [id number]:[facility] [place] [facility] [address] [facility] [address] Laboratory Report Ordering Provider Test Date Status LYNNE FOY 01/28/2023 11:55:05 Final Observation Date Value Abnormality Reference (Units ) Status HIV 1+2 Ab+HIV1 p24 Ag [Presence] in Serum or Plasma by Immunoassay 01/28/2023 11:55:05 Negative Negative Final Negative HIV-1/2 antigen and antibody screening tset results usually indicate the absence of HIV-1 and HIV-2 infection. However, such negative results do not rule-out acute HIV infection. If acute HIV-1 infection is highly suspected, it is recommended that a specimen be submitted for detection of HIV-1 RNA. Performing Location [facility] [place] - [facility] [address] [facility] [address]
--- OUTSIDE RECORDS SUMMARY | 2023-07-18 11:27 | External Medical Summary ---
Author Name Unknown Address Unknown Organization K01:LAB[facility]ATORY [facility] [place] - [address] [facility] [address] Laboratory Report Ordering Provider Test Date Status DANIILYNNE 01/28/2023 11:55:05 Final Observation Date Value Abnormality Reference (Units ) Status SYNC LEUKOCYTES IN BLOOD BY AUTOMATED COUNT 01/28/2023 11:55:05 9.90 4.00-10.80 (K/uL) Final Segs 01/28/2023 11:55:05 70.5 40.0-75.0 (%) Final Lymphs % 01/28/2023 11:55:05 22.8 18.0-42.0 (%) Final Monos 01/28/2023 11:55:05 5.7 1.0-11.0 (%) Final Eosinophils 01/28/2023 11:55:05 0.2 0.0-6.0 (%) Final Basos 01/28/2023 11:55:05 0.5 0.0-2.0 (%) Final Immature Granulocyte, Percent 01/28/2023 11:55:05 0.3 0.0-2.0 (%) Final Absolute Segs 01/28/2023 11:55:05 6.98 1.80-7.70 (K/uL) Final Lymphs, absolute 01/28/2023 11:55:05 2.26 1.00-4.80 (K/ul) Final Monos, Abs 01/28/2023 11:55:05 0.56 0.00-1.10 (K/uL) Final Eos, Abs 01/28/2023 11:55:05 0.02 0.00-0.70 (K/uL) Final Basos, Abs 01/28/2023 11:55:05 0.05 0.00-0.20 (K/uL) Final Immature Granulocytes, Number 01/28/2023 11:55:05 0.03 0.00-0.20 (K/uL) Final Performing Location LAB[facility]ATORY [facility] [place] - [address] [facility] [address]
--- OUTSIDE RECORDS SUMMARY | 2023-07-18 11:27 | External Medical Summary ---
Author Name Unknown Address Unknown Organization K01:LABORATORY [facility] [place] - [address] [place] [address] Laboratory Report Ordering Provider Test Date Status LYNNE FOY 01/28/2023 11:55:05 Final Observation Date Value Abnormality Reference (Units ) Status Rubella virus IgG Ab [Presence] in Serum 01/28/2023 11:55:05 Positive Abnormal Negative Final A positive result is consist ent with having had rubella virus or vaccination. Performing Location LABORATORY [facility] [place] - [address] [place] [address]
--- OUTSIDE RECORDS SUMMARY | 2023-07-18 11:27 | External Medical Summary ---
Author Name Unknown Address Unknown Organization [facility] [address] [place] [address] Laboratory Report Ordering Provider Test Date Status LYNNE FOY 01/28/2023 11:55:05 Final Observation Date Value Abnormality Reference (Units ) Status Creatinine 01/28/2023 11:55:05 0.5 0.5-1.0 (mg/dL) Final Glomerular filtration rate/1.73 sq M.predicted [Volume Rate/Area] in Serum, Plasma or Blood by Creatinine-based formula (CKD-EPI) 01/28/2023 11:55:05 >90 >=60 (mL/min) Final eGFR is calculated based on the CKD-EPI 2020 equation Performing Location LABORATORY [facility] - [address] [place] [address]
--- OUTSIDE RECORDS SUMMARY | 2023-07-18 11:27 | External Medical Summary ---
Author Name Unknown Address Unknown Organization K01:LABORATORY [facility] - [address] [place] [address] Laboratory Report Ordering Provider Test Date Status LYNNE FOY 01/28/2023 11:55:05 Final Observation Date Value Abnormality Reference (Units ) Status Hep C Ab 01/28/2023 11:55:05 Negative Negative Final Further HCV quantitative jeana ting not performed per protocol. Performing Location LABORATORY [facility] - [address] [place] [address]
--- OUTSIDE RECORDS SUMMARY | 2023-07-18 11:27 | External Medical Summary ---
Author Name Unknown Address Unknown Organization K01:LABORATORY [facility] [place] - [address] [place] [address] Laboratory Report Ordering Provider Test Date Status LYNNE FOY 01/28/2023 11:55:05 Final Observation Date Value Abnormality Reference (Units ) Status Hep B surface Ag 01/28/2023 11:55:05 Negative Neg ative Final Performing Location LABORATORY [facility] - [address] [place] [address]
--- OUTSIDE RECORDS SUMMARY | 2023-07-18 11:27 | External Medical Summary ---
Author Name Unknown Address Unknown Organization K01:LABORATORY [facility] [place] - [address] [place] [address] Laboratory Report Ordering Provider Test Date Status LYNNE FOY 01/28/2023 11:55:05 Final Observation Date Value Abnormality Reference (Units ) Status Uric Acid 01/28/2023 11:55:05 3.5 2.4-5.7 (m g/dL) Final Performing Location LABORATORY [facility] - [address] [place] [address]
--- OUTSIDE RECORDS SUMMARY | 2023-07-18 11:27 | External Medical Summary ---
Author Name Unknown Address Unknown Organization K01:LABORATORY [facility] - [address] [facility] [address] Laboratory Report Ordering Provider Test Date Status LYNNE FOY 01/28/2023 11:55:05 Final Observation Date Value Abnormality Reference (Units ) Status WBC, Total 01/28/2023 11:55:05 9.90 4.00-10.8 0 (K/uL) Final RBC 01/28/2023 11:55:05 4.30 3.85-5.15 (M/uL) Final Hemoglobin 01/28/2023 11:55:05 13.0 12.0-15.3 (g/dL) Final Anemia reflex testing trigge rs on a HGB < 12.0 for Females and HGB < 13.0 for Males in accordance with the WHO Anemia Guidelines
Anemia reflex testing triggers on a HGB < 12.0 for Females and HGB < 13.0 for Males in accordance with the WHO Anemia Guidelines HCT 01/28/2023 11:55:05 41.4 36.0-45.2 (%) Final MCV 01/28/2023 11:55:05 96.3 81.5-97.5 (fL) Final MCH 01/28/2023 11:55:05 30.2 27.0-34.0 (pg) Final MCHC 01/28/2023 11:55:05 31.4 32.0-36.0 (g/dL) Final RDW 01/28/2023 11:55:05 13.2 11.5-15.5 (%) Final Platelets 01/28/2023 11:55:05 301 140-400 (K /uL) Final MPV 01/28/2023 11:55:05 10.1 6.6-11.1 ( fL) Final Nucleated erythrocytes/100 leukocytes [Ratio] in Blood by Automated count 01/28/2023 11:55:05 0 <=0 (/100 WBCs) Fi [facility] Performing Location LABORATORY [facility] - [address] [facility] [address]
--- OUTSIDE RECORDS SUMMARY | 2023-07-18 11:27 | External Medical Summary | Summary of Care ---
Author Name Unknown Organization [facility] Address [address] [place] [address] Phone [phone] Care Team Providers Care State Auditor Name Role Phone Deborah Peña DO Primary Care Provider [phone] Reason for Visit * Reason Comments New Visit * Evaluate & Treat - Unlimited Visits (Within 30 days (routine)) - Authorized Specialty Diagnoses / Procedures Referred By Contignacio t Referred To Contact Obstetrics/Gynecology / Gynecology Obstetrics Diagnoses Pap smear for cervical cancer screening Deborah Peña DO [address] [place] [address] Referral ID Status Reason Start Date Expiration Date Visits Requested Visits Authorized [id number] Authorized Specialty Services Required 06/12/[phone] Encounter Details Date Type Department Care Team Description 01/28/2023 Office Visit Gynecology/Obstetrics [facility] [address] [place] [address] Gissel Schwab CRNP [address] [place] [address] Encounter for supervision of other normal in [...] mRNA, LNP-s, No Pre serve, 2-Dose Series ([employer]) 05/01/2021,09/05/2020,08/15/2020 documented as of this encounter Social [...] Domingo PA-C [address] [place] [address] 06/15/2023 Office Visit Family Medicine Deborah Peña DO [address] [place] [address] Pending Results Name Type Priority Associated Diagnoses [...] hypertension documented in this encounter Care Teams State Auditor Relationship Specialty Start Date End Date Deborah Peña, [address] [place] [address] PCP - General Family Medicine 06/12/22 documented as of this encounter
--- OUTSIDE RECORDS SUMMARY | 2023-07-18 11:27 | External Medical Summary | Summary of Care ---
Author Name Unknown Organization [facility] Address [address] [place] [address] Phone [phone] Care Team Providers Care Lofter Name Role Phone Deborah Peña DO Primary Care Provider [phone] Reason for Visit * Reason Comments Outpatient Testing Encounter Details Date Type Department Care Team Description 01/28/2023 Laboratory Laboratory, [facility] [address] [place] [address] [facility] [address] [place] [address] Encounter for supervision of other normal in second trimester; History of gestational hypertension Allergies No known [...] Date Gestational hypertension 05/08/2018 021 Overview: IOL tonricardo at 8 pm , normal first 08/01/2013 03/08/20 21 documented as of this encounter (statuses as of 01/28/2023) Immunizations Name Administration Dates Next Due COVID-19 mRNA, LNP-s, No Pre serve, 2-Dose Series ([employer]) 05/01/2021,09/05/2020,08/15/2020 documented as of this encounter Social [...] Gynecology Obstetrics Mackenzie Domingo PA-C [address] [place] [address] 06/15/2023 Office Visit Family Medicine Deborah Peña DO [address] [place] [address] Pending Results Name Type Priority Associated Diagnoses [...] of gestational hypertension 01/28/2023 11:55 AM EDT Health Maintenance Due Date Last Done Comments [...] supervision of other normal in second trimester History of gestational hypertension documented in this encounter Care Teams Lofter Relationship Specialty Start Date End Date Deborah Peña DO [address] [place] [address] PCP - General Family Medicine 06/12/22 documented as of this encounter
--- NOTE | 2023-07-18 13:29 | Obstetrical Progress Note ---
Date of Service July 18, 2023 Assessment & Plan (1) Normal course: PPD #1 pt wishes to be discharged home Subjective Ambulation: ambulating normally Voiding: no voiding problems Passing Gas:: Yes Diet Tolerance:: regular diet Lochia:: Small Feeding Type:: breast feeding Review of Systems All systems reviewed & are unremarkable except as noted in HPI & below Physical Exam Constitutional WD/WN, vitals as above well developed and well nourished Eyes PERRL, conjunctivae normal, anicteric sclerae Neck trachea midline, no thyromegaly Respiratory normal respiratory effort, lungs clear to auscultation Auscultation: no crackles, no rales and no wheezes Cardiovascular RRR, no murmur, no edema Gastrointestinal (Abdomen) normal bowel sounds, soft, nontender, no hepatosplenomegaly Uterus is below umbilicus Musculoskeletal no cyanosis or clubbing, extremities motor strength 5/5 Skin no rashes, warm and dry Neurologic patellar DTR's 2+ bilat, sensation intact Psychiatric A+Ox3, euthymic affect Genitourinary normal external appearance Results & Data Vital Signs (Past 12 Hours) Vital Signs Temp Pulse Resp BP Pulse Ox O2 Del Method 07/18/23 12:18 37.0 C 75 14 130/87 100 Room Air 07/18/23 08:41 36.6 C 78 18 131/87 100 Room Air 07/18/23 04:11 36.5 C 65 16 121/80 99 Room Air
[2023-07-18] MEDS: bisacodyL 5 MG TABEC PO SCH (20:19)
[2023-07-19] MEDS ORDERED: bisacodyL 10 MG SUPP PR PRN (21:18)
== END 2023-07-18 21:35 | disposition home health service (06) | DRG 807 ==
LOC: 4S1 10:35 → 4E2 23:49